=== PATIENT | female | born 1985 | race Hispanic/Latino ===

== ENCOUNTER 2017-12-05 16:23 | Emergency (ER) | payer OTHER ==
[~2017-12-05] VITALS: Ht 162.6 cm; Wt 61.2 kg
[2017-12-05] MEDS ORDERED: PAROXETINE HCL10 MG PO (16:36)
[2017-12-05] MEDS ORDERED: SERTRALINE HCL100 MG PO (16:37)
== END 2017-12-05 19:47 | disposition home or self-care (01) ==
LOC: ED 16:23
DX: F12.980 Cannabis use, unspecified with anxiety disorder (principal); Z88.5 Allergy status to narcotic agent; Z88.8 Allergy status to other drugs, medicaments and biological substances; Z79.899 Other long term (current) drug therapy
CPT/HCPCS: 80053; 84703; 85025; 99283; G0480

== ENCOUNTER 2020-01-15 12:49 | Emergency (ER) | payer OTHER ==
[~2020-01-15] VITALS: Ht 162.6 cm; Wt 63.5 kg
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
--- OUTSIDE RECORDS SUMMARY | ~2020-01-15 | XMS | Clinical Summary ---
Demographics + + + | Address | [address] | | | [place] [address] | + + + | Home Phone | | + + + | Preferred Language | Unknown | + + + | Marital Status | Single | + + + | Islam Affiliation | CAT | + + + | Race | White | + + + | Ethnic Group | Not or | + + + Author + + + | Author | NON REVENUE LOCATIONS | + + + | Organization | NON REVENUE LOCATIONS | + + + | Address | Unknown | + + + | Phone | Unavailable | + + + Support + + +---------+ + | Name | Relationship | Address | Phone | + + +---------+ + | Mayito Shahid | ECON | Unknown | | + + +---------+ + Care Team Providers + +------+ + | Care Video And Sound Recorder Name | Role | Phone | + +------+ + | Jessica Craft | PCP | | + +------+ + Source Comments BRIDGER is fully live on both EpicCare Ambulatory and EpicCare InPatient.[facility] Allergies + + + + + + | Active Allergy | Reactions | Severity | Noted | Comments | | | | | Date | | + + + + + + | Codeine | Hives, Anxiety | High | 04/30/20 | | | | | | 16 | | + + + + + + | Ketorolac | Nausea, Anxiety | Low | 04/30/20 | | | | | | 16 | | + + + + + + | Metoclopramide Hcl | Anxiety | Low | 04/30/20 | | | | | | 16 | | + + + + + + | Promethazine Hcl | Anxiety | | 09/29/19 | | | | | | 18 | | + + + + + + | Promethazine | Anxiety | Low | 04/30/20 | | | | | | 16 | | + + + + + + Medications + + + +---------+------+------+-------+ | Medication | Sig | Dispensed | Refills | Star | End | Statu | | | | | | t | Date | s | | | | | | Date | | | + + + +---------+------+------+-------+ | MULTIVITAMIN | Take by mouth once | | 0 | | | Activ | | (MULTIPLE VITAMINS | daily. 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 | + + Last Filed Vital Signs + + + + + | Vital Sign | Reading | Time Taken | Comments | + + + + + | Blood Pressure | 127/70 | 08/31/2016 2:14 PM | | | | | PST | | + + + + + | Pulse | 65 | 08/31/2016 2:14 PM | | | | | PST | | + + + + + | Temperature | 36.9 C (98.4 F) | 05/26/2016 3:17 PM | | | | | PST | | + + + + + | Respiratory Rate | 16 | 08/31/2016 2:14 PM | | | | | PST | | + + + + + | Oxygen Saturation | 97% | 08/31/2016 2:14 PM | | | | | PST | | + + + + + | Inhaled Oxygen | - | - | | | Concentration | | | | + + + + + | Weight | 61.3 kg (135 lb 1.6 | 08/13/2016 1:20 PM | | | | oz) | PST | | + + + + + | Height | 162.6 cm (5' 4") | 06/08/2016 11:46 AM | | | | | PST | | + + + + + | Body Mass Index | 23.19 | 06/08/2016 11:46 AM | | | | | PST | | + + + + + Plan of Treatment + + + + + | Health Maintenance | Due Date | Last Done | Comments | + + + + + | Influenza (Flu) | | 06/16/2017 | | | vaccination (#1) | 9 | | | + + + + + | Pneumococcal | Aged Out | | No longer eligible | | vaccination | | | based on patient's | | | | | age to complete this | | | | | topic | + + + + + Implants + +------+--------+ +--------+--------+--------+ | Implanted | Type | Area | Manufacture | Device | Shelf | Model | | | | | r | | Expira | / | | | | | | Identi | tion | Serial | | | | | | fier | Date | / Lot | + +------+--------+ +--------+--------+--------+ | TisseelImplanted: Qty: 1 on | | Left: | DEL ROSARIO | | 09/15/ | | | 05/26/2016 by Bronson Christine, | | Hand | HEALTHCARE | | 2017 | | | ,PhD at [facility] | | | | | | /[id number] | | LOC | | | | | | [id number] | | | | | | | | 3 | | | | | | | | /[id number] | | | | | | | | 035 | + +------+--------+ +--------+--------+--------+ | Graft Soft Tissue 30mm 2-3mm | | Left: | AXOGEN | | 04/17/ | | Avance Nerve Allograft | | Hand | | | 2017 | / | | Multiple Clean - | | | | | | /[id number] | | [id number]: Qty: 1 on | | | | | | | | 05/26/2016 by Bronson Christine, | | | | | | | | MDPhD at [facility] | | | | | | | | LOC | | | | | | | + +------+--------+ +--------+--------+--------+ + + | Description:AVANCE NERVE | | GRAFT | + + Results Not on filefrom Last 3 Months Insurance + +--------+ +--------+ + +--------+ | Payer | Benefi | Subscriber | Effect | Phone | Address | Type | | | t Plan | ID | nancy | | | | | | / | | Dates | | | | | | Group | | | | | | + +--------+ +--------+ + +--------+ | STAMPING PRESS OPERATOR MEDICAID | STAMPING PRESS OPERATOR | xxxxxxxx | | | | Medica | | | [place] | | 017-Pr | | | id | | | [place] | | esent | | | | + +--------+ +--------+ + +--------+ | MODA | MODA | xxxxxxxxx | 08/19/19 | [phone] | [address] | PPO | | | CONNEX | | 18-Pre | 4 | [id number] | | | | [place] | | sent | | [place], | | | | | | | | [place] [address] | | + +--------+ +--------+ + +--------+ + +--------+ +--------+ + + | Guarantor Name | Accoun | Relation to | Date | Phone | Billing Address | | | t Type | Patient | of | | | | | | | | | | + +--------+ +--------+ + + | Reyna Farmer | Person | Self [birth year] | [address] | | | al/Fam | | 1984 | [phone] | [place] [address] | | | carlene | | | 2 (Home) | | + +--------+ +--------+ + + | Reyna Farmer | Vision | Self | [birth year] | [address] | | | | | 1984 | [phone] | [place] [address] | | | | | | 2 (Home) | | + +--------+ +--------+ + +
--- OUTSIDE RECORDS SUMMARY | ~2020-01-15 | XMS | Encounter Summary ---
Demographics + + + | Address | [address] | | | [place] [address] | + + + | Home Phone | | + + + | Preferred Language | Unknown | + + + | Marital Status | Single | + + + | Sikh Affiliation | CAT | + + + | Race | White | + + + | Ethnic Group | Not or | + + + Author + + + | Author | [facility] | + + + | Organization | [facility] | + + + | Address | Unknown | + + + | Phone | Unavailable | + + + Support + + +---------+ + | Name | Relationship | Address | Phone | + + +---------+ + | Mayito Shahid | ECON | Unknown | | + + +---------+ + Care Team Providers + +------+ + | Care Product Delivery Specialist Name | Role | Phone | + +------+ + | Jessica Craft | PCP | | + +------+ + Encounter Details +--------+ + + + + | Date | Type | Department | Care Team | Description | +--------+ + + + + | 04/16/ | Hospital | Registration [id number] | Kelli Coulter MD | | | 2006 | Activity | [address] | | | | | | [address] Mailcode: [address] | | | | | | [place], [place] | | | | | | [address] | | | | | | [phone] | | | +--------+ + + + + Social History + +-------+ +--------+------+ | Tobacco Use | Types | Packs/Day | Years | Date | | | | | Used | | + +-------+ +--------+------+ | Never Assessed | | | | | + +-------+ +--------+------+ + + + | Sex Assigned at [...] + + documented as of this encounter Plan of Treatment Not on filedocumented as of this encounter Procedures + +--------+ + + + | Procedure Name | Priori | Date/Time | Associated Diagnosis | Comments | | | ty | | | | + +--------+ + + + | MRI BRAIN WWO | Urgent | 04/17/2007 | | Results for this | | CONTRAST | | 8:15 AM | | procedure are in the | | | | PDT | | results section. | + +--------+ + + + | DIFFERENTIAL | Urgent | 04/17/2007 | | Results for this | | | | 1:26 AM | | procedure are in the | | | | PDT | | results section. | + +--------+ + + + | CBC, WITH | Urgent | 04/17/2007 | | Results for this | | DIFFERENTIAL | | 1:26 AM | | procedure are in the | | | | PDT | | results section. | + +--------+ + + + | BASIC METABOLIC SET | Urgent | 04/17/2007 | | Results for this | | (NA, K, CL, TCO2, | | 1:26 AM | | procedure are in the | | BUN, CR, GLU, CA) | | PDT | | results section. | + +--------+ + + + documented in this encounter Results MRI BRAIN WWO CONTRAST (04/17/2007 8:15 AM PDT) + + + + + + | Component | Value | Ref Range | Performed | Pathologist | | | | | At | Signature | + + + + + + | MR BRAIN | Radiologist 1: ZHOU, | | | | | CONNER | RADHA AHN: MRI | | | | | CONTRAST | brain with and without | | | | | | contrast HISTORY: | | | | | | Anxiety , headache | | | | | | TECHNIQUE: MRI of the | | | | | | brain with and without | | | | | | contrast performed onthe | | | | | | 1.5 Patti magnet with | | | | | | the following | | | | | | sequences:Sagittal FLAIR | | | | | | image.Axial T1, T2,PD, | | | | | | FLAIR.Post contrast | | | | | | axial and coronal T1 | | | | | | weighted images.Please | | | | | | note that diffusion | | | | | | weighted images were not | | | | | | obtained. COMPARISON: | | | | | | No comparison FINDINGS: | | | | | | Normal brain signal | | | | | | intensity. No intra | | | | | | axial mass, masseffect | | | | | | or shift of midline | | | | | | structures. Brain volume | | | | | | andventricular size | | | | | | appropriate for | | | | | | patient's stated age | | | | | | with noevidence of | | | | | | ventricular outflow | | | | | | obstruction. No | | | | | | parenchymal orextra | | | | | | axial hemorrhage. Post | | | | | | contrast images show no | | | | | | abnormalenhancement. | | | | | | Prominent | | | | | | developmental venous | | | | | | anomaly seen in theleft | | | | | | frontotemporal region. | | | | | | Vascular flow voids | | | | | | are unremarkable.Minimal | | | | | | right maxillary mucosal | | | | | | | | | | | | thickening.IMPRESSION:1. | | | | | | Prominent developmental | | | | | | venous anomaly seen in | | | | | | the leftfrontotemporal | | | | | | region.2. Otherwise | | | | | | unremarkable MRI brain. | | | | | | | | | | + + + + + + + + | Specimen | + + | | + + + +---------+ + + | Performing | Address | City/State/Zipcode | Phone Number | | Organization | | | | + +---------+ + + | [facility] | | | | | RADIOLOGY | | | | + +---------+ + + DIFFERENTIAL (04/17/2007 1:26 AM PDT) + +-------+ + + + | Component | Value | Ref Range | Performed | Pathologist | | | | | At | Signature | + +-------+ + + + | NEUTROPHIL | 56 | 50 - 70 % | [facility] | | | % | | | DEPARTMENT | | | | | | OF | | | | | | PATHOLOGY | | + +-------+ + + + | LYMPHOCYTE | 37 | 18 - 42 % | [facility] | | | % | | | DEPARTMENT | | | | | | OF | | | | | | PATHOLOGY | | + +-------+ + + + | MONOCYTE % | 7 | 2 - 8 % | [facility] | | | | | | DEPARTMENT | | | | | | OF | | | | | | PATHOLOGY | | + +-------+ + + + | EOS % | 0 (L) | 1 - 3 % | [facility] | | | | | | DEPARTMENT | | | | | | OF | | | | | | PATHOLOGY | | + +-------+ + + + | BASO % | 0 | <3 % | [facility] | | | | | | DEPARTMENT | | | | | | OF | | | | | | PATHOLOGY | | + +-------+ + + + | NEUTROPHIL | 4.3 | 1.8 - 7.7 K/cu | [facility] | | | # | | mm | DEPARTMENT | | | | | | OF | | | | | | PATHOLOGY | | + +-------+ + + + | LYMPHOCYTE | 2.8 | 1.0 - 4.8 K/cu | [facility] | | | # | | mm | DEPARTMENT | | | | | | OF | | | | | | PATHOLOGY | | + +-------+ + + + | MONOCYTE # | 0.5 | <0.9 K/cu mm | [facility] | | | | | | DEPARTMENT | | | | | | OF | | | | | | PATHOLOGY | | + +-------+ + + + | EOS # | 0.0 | <0.6 K/cu mm | [facility] | | | | | | DEPARTMENT | | | | | | OF | | | | | | PATHOLOGY | | + +-------+ + + + | BASO # | 0.0 | <0.3 | [facility] | | | | | | DEPARTMENT | | | | | | OF | | | | | | PATHOLOGY | | + +-------+ + + + + + | Specimen | + + | | + + + + + + + | Performing | Address | City/State/Zipcode | Phone Number | | Organization | | | | + + + + + | [facility] | [address] | [place] [address] | | | PATHOLOGY | [address] | | | + + + + + | [facility] | [address] | [place] [address] | | | PATHOLOGY | [address] | | | + + + + + CBC, WITH DIFFERENTIAL (04/17/2007 1:26 AM PDT) + +-------+ + + + | Component | Value | Ref Range | Performed | Pathologist | | | | | At | Signature | + +-------+ + + + | WHITE CELL | 7.6 | 4.4 - 11.0 K/cu | [facility] | | | COUNT | | mm | DEPARTMENT | | | | | | OF | | | | | | PATHOLOGY | | + +-------+ + + + | RED CELL | 4.10 | 4.00 - 5.20 | [facility] | | | COUNT | | M/cu mm | DEPARTMENT | | | | | | OF | | | | | | PATHOLOGY | | + +-------+ + + + | HEMOGLOBIN | 13.0 | 12.0 - 16.0 | [facility] | | | | | g/dL | DEPARTMENT | | | | | | OF | | | | | | PATHOLOGY | | + +-------+ + + + | HEMATOCRIT | 37.0 | 36.0 - 46.0 % | [facility] | | | | | | DEPARTMENT | | | | | | OF | | | | | | PATHOLOGY | | + +-------+ + + + | MCV | 90.3 | 80.0 - 96.0 fL | [facility] | | | | | | DEPARTMENT | | | | | | OF | | | | | | PATHOLOGY | | + +-------+ + + + | MCHC | 35.1 | 33.4 - 35.5 | [facility] | | | | | g/dL | DEPARTMENT | | | | | | OF | | | | | | PATHOLOGY | | + +-------+ + + + | RDW | 12.2 | 11.5 - 15.0 % | [facility] | | | | | | DEPARTMENT | | | | | | OF | | | | | | PATHOLOGY | | + +-------+ + + + | PLATELET | 255 | 150 - 400 K/cu | [facility] | | | COUNT | | mm | DEPARTMENT | | | | | | OF | | | | | | PATHOLOGY | | + +-------+ + + + + + | Specimen | + + | | + + + + + + + | Performing | Address | City/State/Zipcode | Phone Number | | Organization | | | | + + + + + | [facility][1] | [address] | [place] [address] | | | PATHOLOGY | [address] | | | + + + + + | [facility][1] | [address] | [place] [address] | | | PATHOLOGY | [address] | | | + + + + + BASIC METABOLIC SET (NA,K,CL,BUN,CR,GLU,CO2,CA) (04/17/2007 1:26 AM PDT) + +---------+ + + + | Component | Value | Ref Range | Performed | Pathologist | | | | | At | Signature | + +---------+ + + + | GLUCOSE, | 107 (H) | 60 - 99 mg/dL | [facility] | | | PLASMA | | | DEPARTMENT | | | (LAB) | | | OF | | | | | | PATHOLOGY | | + +---------+ + + + | BUN, PLASMA | 14 | 6 - 20 mg/dL | [facility] | | | (LAB) | | | DEPARTMENT | | | | | | OF | | | | | | PATHOLOGY | | + +---------+ + + + | CREATININE | 0.8 | 0.6 - 1.1 mg/dL | [facility] | | | PLASMA | | | DEPARTMENT | | | (LAB) | | | OF | | | | | | PATHOLOGY | | + +---------+ + + + | SODIUM, | 139 | 136 - 145 | [facility] | | | PLASMA | | mmol/L | DEPARTMENT | | | (LAB) | | | OF | | | | | | PATHOLOGY | | + +---------+ + + + | POTASSIUM, | 3.5 | 3.5 - 5.1 | [facility] | | | PLASMA | | mmol/L | DEPARTMENT | | | (LAB) | | | OF | | | | | | PATHOLOGY | | + +---------+ + + + | CHLORIDE, | 104 | 98 - 107 mmol/L | [facility] | | | PLASMA | | | DEPARTMENT | | | (LAB) | | | OF | | | | | | PATHOLOGY | | + +---------+ + + + | TOTAL CO2, | 27 | 23 - 29 mmol/L | [facility] | | | PLASMA | | | DEPARTMENT | | | (LAB) | | | OF | | | | | | PATHOLOGY | | + +---------+ + + + | CALCIUM, | 9.6 | 8.5 - 10.5 | [facility] | | | PLASMA | | mg/dL | DEPARTMENT | | | (LAB) | | | OF | | | | | | PATHOLOGY | | + +---------+ + + + + + | Specimen | + + | | + + + + + + + | Performing | Address | City/State/Zipcode | Phone Number | | Organization | | | | + + + + + | [facility][1] | [address] | [place] [address] | | | PATHOLOGY | [address] | | | + + + + + | [facility][1] | [address] | [place] [address] | | | PATHOLOGY | [address] | | | + + + + + documented in this encounter Visit Diagnoses Not on filedocumented in this encounter"
--- OUTSIDE RECORDS SUMMARY | ~2020-01-15 | XMS | Encounter Summary ---
Demographics + + + | Address | [address] | | | [place] [address] | + + + | Home Phone | | + + + | Preferred Language | Unknown | + + + | Marital Status | Single | + + + | Orthodox Affiliation | CAT | + + + | Race | White | + + + | Ethnic Group | Not or | + + + Author + + + | Author | [facility] | + + + | Organization | [facility] | + + + | Address | Unknown | + + + | Phone | Unavailable | + + + Support + + +---------+ + | Name | Relationship | Address | Phone | + + +---------+ + | Mayito Shahid | ECON | Unknown | | + + +---------+ + Care Team Providers + +------+ + | Care Optical Systems Engineer Name | Role | Phone | + +------+ + | Unknown | PCP | Unavailable | + +------+ + Encounter Details +--------+ + + + + | Date | Type | Department | Care Team | Description | +--------+ + + + + | 04/29/ | Document-Sc | Health Information | Unknown . | | | 2015 | anned | Services [address] | | | | | [address] | | | | | | Mailcode: [id number] | | | | | | [facility] | | | | | | [place], [place] | | | | | | [address] | | | | | | [phone] | | | +--------+ + + + [...] filedocumented as of this encounter Visit Diagnoses Not on filedocumented in this encounter"
--- OUTSIDE RECORDS SUMMARY | ~2020-01-15 | XMS | Encounter Summary ---
Demographics + + + | Address | [address] | | | [place] [address] | + + + | Home Phone | | + + + | Preferred Language | Unknown | + + + | Marital Status | Single | + + + | Jehovah'S Witness Affiliation | CAT | + + + | Race | White | + + + | Ethnic Group | Not or | + + + Author + + + | Author | [facility] | + + + | Organization | [facility] | + + + | Address | Unknown | + + + | Phone | Unavailable | + + + Support + + +---------+ + | Name | Relationship | Address | Phone | + + +---------+ + | Mayito Shahid | ECON | Unknown | | + + +---------+ + Care Team Providers + +------+ + | Care Dental Mechanic Name | Role | Phone | + +------+ + | No Pcp Per Patient | PCP | Unavailable | + +------+ + Encounter Details +--------+ + + + + | Date | Type | Department | Care Team | Description | +--------+ + + + + | 08/22/ | Documentati | Plastic and | Bronson Christine, | | | 2017 | on | Reconstructive | ,PhD [address] | | | | | Surgery at [facility] [address] [place], [place] | | | | | [address] | [address] | | | | | Mailcode: [facility] | [phone] | | | | | [facility] | | | | | | and Healing, | | | | | | Building | | | | | | Floor [place], [place] | | | | | | [address] | | | | | | [phone] | | | +--------+ + + + [...]
--- OUTSIDE RECORDS SUMMARY | ~2020-01-15 | XMS | Encounter Summary ---
Demographics + + + | Address | [address] | | | [place] [address] | + + + | Home Phone | | + + + | Preferred Language | Unknown | + + + | Marital Status | Single | + + + | Restorationism Affiliation | [id number] | + + + | Race | Unknown | + + + | Ethnic Group | Unknown | + + + Author + + + | Author | [facility] | | | and [place] | + + + | Organization | [facility] | | | and [place] | + + + | Address | Unknown | + + + | Phone | Unavailable | + + + Support + + +---------+ + | Name | Relationship | Address | Phone | + + +---------+ + | Lety Farmer | ECON | Unknown | | + + +---------+ + Care Team Providers + +------+ + | Care Pulpwood Buyer Name | Role | Phone | + +------+ + | Elmer Rangel MD | PCP | | + +------+ + Reason for Visit +---------+--------+ + | Reason | Onset | Comments | | | Date | | +---------+--------+ + | Results | 12/18/ | | | | 2020 | | +---------+--------+ + Encounter Details +--------+ + + + + | Date | Type | Department | Care Team | Description | +--------+ + + + + | 12/18/ | Telephone | [facility] | [facility], | Results | | 2020 | | GASTROENTEROLOGY | Nancy KAELYN [address] | | | | | [address] | [address] | | | | | [address] [place], [place] | [place], [place] | | | | | [address] | [address] | | | | | [phone] | | | +--------+ + + + [...] | | | + +---+---+---+ + + +---------+ + | Alcohol Use | Drinks/Week | oz/Week | Comments | + + +---------+ + | Yes | | | | + + +---------+ + + + + | Sex Assigned at | Date Recorded | | | | + + + | Female | 12/05/2019 3:51 PM PDT | + + + documented as of this encounter Miscellaneous Notes Telephone Encounter - Mary Whitfield CMA - 12/19/2019 9:57 AM PDTNotified patient cayla t labs are stable. The MRI that Belen ordered has been approved by insurance and is ready to schedule here at [facility] imaging. documented in this encounter Plan of Treatment Not on filedocumented as of this encounter Visit Diagnoses Not on filedocumented in this encounter"
--- OUTSIDE RECORDS SUMMARY | ~2020-01-15 | XMS | Encounter Summary ---
Demographics + + + | Address | [address] | | | [place] [address] | + + + | Home Phone | | + + + | Preferred Language | Unknown | + + + | Marital Status | Single | + + + | Rastafari Affiliation | CAT | + + + | Race | White | + + + | Ethnic Group | Not or | + + + Author + + + | Author | [facility] | + + + | Organization | [facility] | + + + | Address | Unknown | + + + | Phone | Unavailable | + + + Support + + +---------+ + | Name | Relationship | Address | Phone | + + +---------+ + | Mayito Shahid | ECON | Unknown | | + + +---------+ + Care Team Providers + +------+ + | Care Shirt Trimmer Name | Role | Phone | + +------+ + | No Pcp Per Patient | PCP | Unavailable | + +------+ + Reason for Visit + + + | Reason | Comments | + + + | Prescription renewal | | + + + Encounter Details +--------+ + + + + | Date | Type | Department | Care Team | Description | +--------+ + + + + | 09/29/ | Telephone | Plastic and | Bronson Christine, | Prescription renewal | | 2017 | | Reconstructive | ,PhD [address] | | | | | Surgery at [facility] [address] | [place], [place] | | | | | [address] | [address] | | | | | Mailcode: [place] | [phone] | | | | | [facility] | | | | | | and [place], | | | | | | Building | | | | | | Floor [facility] [place] | | | | | | [address] | | | | | | [phone] | | | +--------+ + + + [...]
--- OUTSIDE RECORDS SUMMARY | ~2020-01-15 | XMS | Encounter Summary ---
Demographics + + + | Address | [address] | | | [place] [address] | + + + | Home Phone | | + + + | Preferred Language | Unknown | + + + | Marital Status | Single | + + + | Amish Affiliation | CAT | + + + | Race | White | + + + | Ethnic Group | Not or | + + + Author + + + | Author | [facility] | + + + | Organization | [facility] | + + + | Address | Unknown | + + + | Phone | Unavailable | + + + Support + + +---------+ + | Name | Relationship | Address | Phone | + + +---------+ + | Mayito Shahid | ECON | Unknown | | + + +---------+ + Care Team Providers + +------+ + | Care Counter Hop Name | Role | Phone | + [...] +--------+--------+ + + + + Encounter Details +--------+ + + + + | Date | Type | Department | Care Team | Description | +--------+ + + + + | 05/26/ | Anesthesia | 4N INTRA OP 3161 | Darcy Estrada | | | 2016 | Event | [facility]chuga | MD [address] | | | | | [place] | [facility] | | | | | Ambulatory Surgery | [place], [place] | | | | | Admitting Desk | [address] | | | | | Located on the [facility] | [phone] | | | | | floor, Room [facility] | | | | | | [place], [place] | | | | | | [address] | | | +--------+ + + + + Anesthesia Record + + + + + | Procedure Name | Responsible | Anesthesia Start | Anesthesia Stop Time | | | Anesthesiologist | Time | | + + + + + | LEFT HAND ULNAR | Darcy Licha Estrada, | 05/26/16 0924 | 05/26/16 1238 | | NERVE MOTOR BRANCH | MD | | | | RECONSTRUCTION WITH | | | | | ALLOGRAFT VS. | | | | | POSSIBLE SURAL NERVE | | | | | AUTOGRAFT (Left | | | | | Hand) | | | | + + + + + +----+---+ + + | Da | T | Event | Comment | | te | i | | | | | m | | | | | e | | | +----+---+ + + | 11 | 0 | Eq Check | Anesthesia machine checked Equipment verified | | /0 | 9 | | | | 8/ | 2 | | | | 20 | 3 | | | | 16 | | | | +----+---+ + + | | 0 | Pt. Check | Prior to anesthesia start, pt. Identified, examined, chart | | | 9 | | reviewed, ALLY held, anesthetic plan made or approved by | | | 2 | | attending anesthesiologist. NPO status confirmed as appropriate | | | 3 | | for procedure Preoperative evaluation: unchanged | +----+---+ + + | | 0 | An Start | | | | 9 | | | | | 2 | | | | | 4 | | | +----+---+ + + | | 0 | An Start | | | | 9 | Data | | | | 2 | | | | | 6 | | | +----+---+ + + | | 0 | Vitals | Monitors applied Vital signs checked Patient ready for anesthesia | | | 9 | Checked | | | | 2 | | | | | 7 | | | +----+---+ + + | | 0 | Std. Airway | | | | 9 | Mgt. | | | | 3 | | | | | 2 | | | +----+---+ + + | | 0 | Abx | | | | 9 | Administere | | | | 3 | d | | | | 7 | | | +----+---+ + + | | 0 | Ready | | | | 9 | | | | | 3 | | | | | 7 | | | +----+---+ + + | | 0 | An Tourn | | | | 9 | Inflated | | | | 4 | | | | | 6 | | | +----+---+ + + | | 0 | Incision | | | | 9 | | | | | 4 | | | | | 7 | | | +----+---+ + + | | 1 | An Tourn | | | | 0 | Deflated | | | | 5 | | | | | 3 | | | +----+---+ + + | | 1 | An Tourn | | | | 1 | Inflated | | | | 0 | | | | | 4 | | | +----+---+ + + | | 1 | An Tourn | | | | 2 | Deflated | | | | 0 | | | | | 5 | | | +----+---+ + + | | 1 | Surgery end | | | | 2 | | | | | 2 | | | | | 0 | | | +----+---+ + + | | 1 | LMA Removed | | | | 2 | | | | | 2 | | | | | 9 | | | +----+---+ + + | | 1 | an stop | | | | 2 | data | | | | 2 | | | | | 9 | | | +----+---+ + + | | 1 | Anesthesia | | | | 2 | End | | | | 3 | | | | | 8 | | | +----+---+ + + +------+ | Meds | +------+ + + + | Name | Total | + + + | propofol | 200 mg | + + + | lidocaine 2% | 100 mg | + + + | midazolam | 2 mg | + + + | fentaNYL | 400 mcg | + + + | dexamethasone | 10 mg | + + + | ondansetron | 4 mg | + + + | propofol INF | 391,680 mcg | + + + | lactated ringers IV | 1,500 mL | + + + + + | Name | + + | Insp Allan | + + | Et Allan | + + | Insp Sevo | + + | Et Sevo | + + | O2 Flow Rate (Total Liters) | + + | Air Flow rate (L/min) | + + + + | No blood administrations on file. | + + +--------+ + + + | Type | Details | Placement | Removal | +--------+ + + + | Incisi | 05/26/16; Left; palm; 05/26/16; | 05/26/16 0000 by | 05/26/161612 by | | on | 1613 | Jenny Barajas RN | Gareth Cleary RN | +--------+ + + + | Periph | 05/26/16; 0855; Right; | 05/26/16 0855 by | 05/26/161611 by | | eral | Antecubital; 20 g; None; | Amalia Qiu RN | Gareth Cleary RN | | IV | Positive; 05/26/16; 161; | | | | | Discharge | | | +--------+ + + + documented in this encounter Social History + +-------+ +--------+------+ | Tobacco [...] in this encounter Administered Medications + +--------+ +-------+------+------+ | Medication Order | MAR | Action | Dose | Rate | Site | | | Action | Date | | | | + +--------+ +-------+------+------+ | dexamethasone (DECADRON) | Given | 05/26/20 | 10 mg | | | | injection intravenous, | | 16 9:40 | | | | | INTRAPROCEDURE PRN, Starting Tue | | AM PST | | | | | 05/26/16 at 0940, Until Tue | | | | | | | 05/26/16 at 1229 | | | | | | + +--------+ +-------+------+------+ +---+---+ | | | +---+---+ + +-------+ +--------+---+---+ | fentaNYL citrate (PF) | Given | 05/26/20 | 50 mcg | | | | (SUBLIMAZE) injection | | 16 12:37 | | | | | intravenous, INTRAPROCEDURE PRN, | | PM PST | | | | | Starting 05/26/16 at 0932, | | | | | | | Until 05/26/16 at 1229 | | | | | | + +-------+ +--------+---+---+ +-------+ +--------+---+---+ | Given | 05/26/20 | 50 mcg | | | | | 16 12:15 | | | | | | PM PST | | | | +-------+ +--------+---+---+ | Given | 05/26/20 | 50 mcg | | | | | 16 11:45 | | | | | | AM PST | | | | +-------+ +--------+---+---+ +---+---+ | | | +---+---+ + +---------+ + + +---+ | lactated ringers IV 10 mL/hr, | New Bag | 05/26/20 | 10 mL/hr | 10 mL/hr | | | intravenous, PROCEDURE | | 16 1:00 | | | | | CONTINUOUS, Starting 05/26/16 | | PM PST | | | | | at 0830, Until e 05/26/16 at | | | | | [...] +---+---+---+ +---+---+ | | | +---+---+ + +-------+ +--------+---+---+ | lidocaine PF (XYLOCAINE MPF) 20 | Given | 05/26/20 | 100 mg | | | | mg/mL (2 %) injection | | 16 9:31 | | | | | INTRAPROCEDURE PRN, Starting Tue | | AM PST | | | | | 05/26/16 at 0931, Until Tue | | | | | | | 05/26/16 at 1229 | | | | | | + +-------+ +--------+---+---+ +---+---+ | | | +---+---+ + +-------+ +------+---+---+ | midazolam (VERSED) injection | Given | 05/26/20 | 2 mg | | | | intravenous, INTRAPROCEDURE PRN, | | 16 9:24 | | | | | Starting 05/26/16 at 0924, | | AM PST | | | | | Until e 05/26/16 at 1229 | | | | | | + +-------+ +------+---+---+ +---+---+ | | | +---+---+ + +-------+ +------+---+---+ | ondansetron (ZOFRAN) injection | Given | 05/26/20 | 4 mg | | | | intravenous, INTRAPROCEDURE PRN, | | 16 12:00 | | | | | Starting Wed05/26/16 at 1200, | | PM PST | | | | | Until Wed05/26/16 at 1229 | | | | | | + +-------+ +------+---+---+ +---+---+ | | | +---+---+ + +---------+ + +--------+---+ | propofol (DIPRIVAN) injection | New Bag | 05/26/20 | 50 | 17.28 | | | INTRAPROCEDURE CONTINUOUS PRN, | | 16 9:44 | mcg/kg/m | mL/hr | | | Starting 05/26/16 at 0944, | | AM PST | in | | | | Until 05/26/16 at 1229 | | | | | | + +---------+ + +--------+---+ +---+---+ | | | +---+---+ + +-------+ +--------+---+---+ | propofol intravenous, | Given | 05/26/20 | 200 mg | | | | INTRAPROCEDURE PRN, Starting Tue | | 16 9:31 | | | | | 05/26/16 at 0931, Until Tue | | AM PST | | | | | 05/26/16 at 1229 | | | | | | + +-------+ +--------+---+---+ +---+---+ | | | +---+---+ documented in this encounter"
--- OUTSIDE RECORDS SUMMARY | ~2020-01-15 | XMS | Encounter Summary ---
Demographics + + + | Address | [address] | | | [place] [address] | + + + | Home Phone | | + + + | Preferred Language | Unknown | + + + | Marital Status | Single | + + + | Mandaen Affiliation | [id number] | + + + | Race | Unknown | + + + | Ethnic Group | Unknown | + + + Author + + + | Author | [facility] | | | and [place] | + + + | Organization | [facility] | | | and [...] Team Providers + +------+ + | Care Corporate Controller Name | Role | Phone | + +------+ + PCP | Unavailable | + +------+ + Encounter Details +--------+ + + + + | Date | Type | Department | Care Team | Description | +--------+ + + + + | 04/26/ | Emergency | [facility] | Willy Barone | Hydronephrosis with | | 2014 | | [facility] | DO [address] | urinary obstruction | | | | EM[facility]Y CENTER | [address] | due to ureteral | | | | [address] | [place] | calculus | | | | [place], [place] | [address] | | | | | [address] | [phone] | | | | | [phone] | | | +--------+ + + + [...] | + + + | Female | | + + + documented as of this encounter ED Notes Conversion Transaction, Provider Unknown - 04/26/2015 10:02 AM PDTFormatting of this note m ight be different from the original. ED Notes by Lou Lomas RN at 04/26/15 1002 Author: Lou Lomas RN Service: (none) Author Type: Registered Nurse Filed: 04/26/15 1006 Date of Service: 04/26/15 1002 Status: Signed Retread Operator: Lou Lomas RN (Registered Nurse) PT is and has previously had an ultrasound for left flank pain which shows hydrone phrosis but "no stone , but it wouldn't" PT states she has gone "6 days in [place] without any real relief. No fever. Previous kidney stones "passed within one day" . PT has had no a ntibiotics during the course. PT was sent here from [place] for higher level of care treat ment for renal calculi. Pt has been in pain and vomiting. Lou Lomas RN 04/26/15 1006 Willy Del Toro DO - 04/26/2015 9:51 AM PDT ED Provider Notes by Willy Barone DO at 04/26/1551 Author: Willy Barone DO Service: (none) Author Type: Physician Filed: 04/27/15 1206 Date of Service: 04/26/15950 Status: Signed Retread Operator: Willy Barone DO (Physician) [facility] Department of Emergency Medicine 12:04 PM History of Present Illness Patient Identification Reyna Shahid is a 29 y.o. female. Patient information was obtained from patient. History/Exam limitations: none. Patient presented to the Emergency Department by: Car Chief Complaint Chief Complaint Patient presents with Flank Pain left 29-year-old female at 24 weeks gestation with a history of kidney stones was transferred to emergency department for further evaluation of left flank pain. The patient's been having o ngoing left flank pain past week and has been hospitalized for intractable pain in [facility] and was transferred secondary to no urology coverage. No past medical history on file. No past surgical history on file. Prior to Admission medications Not on File Allergies Allergen Reactions Codeine Hives and Anxiety Phenergan [Promethazine] Anxiety Reglan [Metoclopramide] Agitation Toradol [Ketorolac] Nausea Only and Anxiety History Social History Marital Status: Single Spouse Name: N/A Number of Children: N/A Years of Education: N/A Occupational History Not on file. Social History Main Topics Smoking status: Not on file Smokeless tobacco: Not on file Alcohol Use: Not on file Drug Use: Not on file Sexual Activity: Not on file Other Topics Concern Not on file Social History Narrative No narrative on file No family history on file. Review of Systems Review of Systems Constitutional: Negative for fever and chills. Cardiovascular: Negative for chest pain. Gastrointestinal: Flank pain Genitourinary: Positive for flank pain. Negative for urgency. Skin: Negative for rash. Neurological: Positive for weakness. All other systems reviewed and are negative. Physical Exam BP 115/72 mmHg | Pulse 94 | Temp(Src) 98.1 F (36.7 C) (Temporal) | Resp 16 | Wt 71.215 kg (157 lb) | SpO2 99% Pulse Oximetry interpretation: Normal Physical Exam Constitutional: She is oriented to person, place, and time. She appears well-developed and well-nourished. The patient appears uncomfortable HENT: Head: Normocephalic and atraumatic. Right Ear: External ear normal. Left Ear: External ear normal. Eyes: EOM are normal. Pupils are equal, round, and reactive to light. Right eye exhibits no discharge. Left eye exhibits no discharge. Neck: Normal range of motion. Cardiovascular: Normal rate. Pulmonary/Chest: Effort normal and breath sounds normal. Abdominal: Soft. There is no tenderness. There is CVA tenderness. abdomen with left flank pain Musculoskeletal: Normal range of motion. Neurological: She is alert and oriented to person, place, and time. Skin: Skin is warm. She is not diaphoretic. Psychiatric: She has a normal mood and affect. Medical Decision Making and Emergency Department Course ED Department Course On arrival to emergency department if he records from [facility] were reviewed. Dr. Powell from urology was consult after initial evaluation and review of prior records. Dr Madrigal recommended repeating an ultrasound, labs and hydration and monitoring in the emergen cy department At 1630 I again discussed case with and findings from today's evaluation. He curre ntly does not think that the patient needs any acute surgical procedure and would benefit fr om a dose of IV and antibiotics and oral antibiotics and follow-up in clinic. He will follow -up the patient next week for recheck and advised to return to emergency department for any worsening I discussed this with the patient who feels that she is safe for discharge and would prefer to go home with pain medicine and antibiotics. Patient understands that she can follow up n ext week for further evaluation and the patient understands that she is to return immediatel y for any worsening of her condition Records Reviewed Old medical records. Laboratory Evaluation Results Procedure Component Value Ref Range Date/Time Urine culture [[id number]] Collected: 04/26/15 1015 Order Status: Sent Specimen Information: Urine / Urine, Clean Catch Updated: 04/26/15 1514 Lipase [[id number]] Collected: 04/26/15 1100 Order Status: Completed Specimen Information: Blood Updated: 04/26/15 1120 LIPASE 73 73 - 393 U/L Urine microscopic [[id number]] (Abnormal) Collected: 04/26/15 1015 Order Status: Completed Specimen Information: Urine / Urine, Clean Catch Updated: 04/02 1113 WBC 0-2 0 - 5 /hpf RBC 0-2 0 - 5 /hpf EPITHELIAL 50-100 /lpf BACTERIA 2+ (A) NONE SEEN CBC with differential [[id number]] (Abnormal) Collected: 04/26/15 1100 Order Status: Completed Specimen Information: Blood Updated: 04/26/15 1111 WBC 6.86 3.80 - 11.00 K/uL RBC 3.01 (L) 3.70 - 5.10 M/uL HGB 9.2 (L) 11.3 - 15.5 g/dL HCT 26.9 (L) 34.0 - 46.0 % MCV 89.5 80.0 - 100.0 fl MCH 30.5 27.0 - 34.0 pg MCHC 34.1 32.0 - 35.5 g/dL RDW SD 40.7 37 - 53 fl PLT 163 150 - 400 K/uL MPV 7.0 fl DIFF TYPE AUTOMATED NEUTROPHILS 79.96 % LYMPHOCYTES 13.32 % MONOCYTES 6.36 % EOSINOPHILS 0.23 % BASOPHILS 0.13 % NEUTROPHILS ABS 5.49 1.90 - 7.40 K/uL LYMPHOCYTES ABS 0.91 (L) 1.00 - 3.90 K/uL MONOCYTES ABS 0.44 0.00 - 0.80 K/uL EOSINOPHILS ABS 0.02 0.00 - 0.50 K/uL BASOPHILS ABS 0.01 0.00 - 0.10 K/uL POC clinitek 10 [[id number]] (Abnormal) Collected: 04/26/15 1011 Order Status: Completed Updated: 04/26/15 1017 Color, UA YELLOW Clarity, UA CLEAR Glucose, UA NEGATIVE NEGATIVE mg/dL Bilirubin, UA NEGATIVE NEGATIVE Ketones, UA >159 (A) NEGATIVE mg/dL Spec Grav, UA 1.015 1.001 - 1.035 Blood, UA NEGATIVE NEGATIVE pH, UA 7.0 4.6 - 8.0 Protein, UA NEGATIVE NEGATIVE mg/dL Urobilinogen, UA 1.0 <1.1 mg/dL Nitrite, UA POSITIVE (A) NEGATIVE WBC, UA NEGATIVE NEGATIVE I personally reviewed the lab results and they have been posted to the chart. Pertinent po sitive and negative findings have been addressed appropriately. Radiology and EKG Evaluation Imaging Results Ultrasound retroperitoneal complete (Final result) Result time: 04/26/15 14:56:10 Final result by Rad Results In Jake (04/26/15 14:56:10) Impression: 1. Bilateral but asymmetric mild hydronephrosis and pelviectasis, greater on the left. Ech ogenic foci, one of which measures about 5 mm in the left renal pelvis. First consideration here is small stone, but there are differential considerations. 2. Cardiomegaly demarcation seems very accentuated. Would correlate with symptoms and urina lysis. Can be associated with edema, occasionally capillary necrosis can be associated with increa sed corticomedullary demarcation Narrative: HISTORY: 29 -year-old female with possible stone, . Pain TECHNIQUE: Ultrasound of bilateral kidneys and urinary bladder. Prior study for comparison, none. FINDINGS: Right kidney measures 10.9 x 5.9 x 4.9 cm. The corticomedullary demarcation is preserved. There is what is believed to be mild pelviec tasis, image 2. The corticomedullary demarcation is pronounced, but there is no stone or keyanna id renal lesion in evidence. Left kidney measures 12.4 x 5.9 x 4.8 cm. Also, the corticomedullary demarcation is preserved. Cortex is diffusely low density relati ve to the medullary portion, accentuating the corticomedullary demarcation. There is mild hy dronephrosis. Echogenic foci in the collecting systems, for example on image 44. A 5 Alas stone cannot be excluded there. No evident aggressive lesion Vascular flow is normal to screening technique. Pre-voiding bladder volume is 281 cc. Post voiding residual 0. The right jet is duplicated, image 50. Suggesting dilatation of the ureter at least partial. [Not seen-this may be techn ical ED Diagnosis Final diagnosis Hydronephrosis with urinary obstruction due to ureteral calculus Disposition: ED Disposition Discharge Condition at discharge: Good Follow-up Information Follow up With Details Comments Contact Info Srinivas Powell MD Call in 3 days [phone] [facility] [address] Discharge Medications: Discharge Medication List as of 04/26/2015 5:54 PM START taking these medications Details cephALEXin (KEFLEX) 500 MG capsule Take 1 capsule by mouth 4 (four) times daily., Starting 04/26/2015, Until Wed05/03/15, Print oxyCODONE-acetaminophen (PERCOCET) 5-325 MG per tablet Take 1-2 tablets by mouth every 6 (s ix) hours as needed for Pain., Starting 04/26/2015, Until Wed05/06/15, Print Dr. Willy Barone, D.O. Dictation software, [employer], used which may contain error for similar sounding words even af ter review. Personal communication requested for any clarification. Willy Barone DO 04/27/15 1206 documente d in this encounter Plan of Treatment Not on filedocumented as of this encounter Procedures + +--------+ + + + | Procedure Name | Priori | Date/Time | Associated Diagnosis | Comments | | | ty | | | | + +--------+ + + + | US RETROPERITONEAL | Routin | 04/26/2015 | | Results for this | | COMPLETE | e | 2:45 PM | | procedure are in the | | | | PDT | | results section. | + +--------+ + + + | EXTERNAL LAB: CBC | Routin | 04/26/2015 | | Results for this | | | e | 11:00 AM | | procedure are in the | | | | PDT | | results section. | + +--------+ + + + | LIPASE | Routin | 04/26/2015 | | Results for this | | | e | 11:00 AM | | procedure are in the | | | | PDT | | results section. | + +--------+ + + + | URINALYSIS, | Routin | 04/26/2015 | | Results for this | | MICROSCOPIC ONLY | e | 10:15 AM | | procedure are in the | | | | PDT | | results section. | + +--------+ + + + | CULTURE, URINE | STAT | 04/26/2015 | | Results for this | | | | 10:15 AM | | procedure are in the | | | | PDT | | results section. | + +--------+ + + + documented in this encounter Results US Retroperitoneal Complete (04/26/2015 2:45 PM PDT) + + | Specimen | + + | | + + + + + | Impressions | Performed At | + + + | 1. Bilateral but asymmetric mild hydronephrosis and | | | pelviectasis, greater on the left. Echogenic foci, one of which | | | measures about 5 mm in the left renal pelvis. First consideration here | | | is small stone, but there are differential considerations. 2. | | | Cardiomegaly demarcation seems very accentuated. Would correlate with | | | symptoms and urinalysis. Can be associated with edema, | | | occasionally capillary necrosis can be associated with increased | | | corticomedullary demarcation | | + + + + + + | Narrative | Performed At | + + + | HISTORY: 29 -year-old female with possible stone, . Pain | | | TECHNIQUE: Ultrasound of bilateral kidneys and urinary bladder. | | | Prior study for comparison, none. FINDINGS: Right kidney | | | measures 10.9 x 5.9 x 4.9 cm. The corticomedullary demarcation is | | | preserved. There is what is believed to be mild pelviectasis, image 2. | | | The corticomedullary demarcation is pronounced, but there is no stone | | | or solid renal lesion in evidence. Left kidney measures 12.4 x | | | 5.9 x 4.8 cm. Also, the corticomedullary demarcation is preserved. | | | Cortex is diffusely low density relative to the medullary portion, | | | accentuating the corticomedullary demarcation. There is mild | | | hydronephrosis. Echogenic foci in the collecting systems, for | | | example on image 44. A 5 Alas stone cannot be excluded there. No | | | evident aggressive lesion Vascular flow is normal to screening | | | technique. Pre-voiding bladder volume is 281 cc. Post voiding | | | residual 0. The right jet is duplicated, image 50. Suggesting | | | dilatation of the ureter at least partial. [Not seen-this may be | | | technical | | + + + + + | Procedure Note | + + | Jake, Rad Conversion - 03/02/2019 11:02 PM PDT HISTORY: 29 -year-old female with | | possible stone, . Pain TECHNIQUE: Ultrasound of bilateral kidneys and urinary | | bladder. Prior study for comparison, none. FINDINGS: Right kidney measures 10.9 x 5.9 x | | 4.9 cm. The corticomedullary demarcation is preserved. There is what is believed to be | | mild pelviectasis, image 2. The corticomedullary demarcation is pronounced, but there is | | no stone or solid renal lesion in evidence. Left kidney measures 12.4 x 5.9 x 4.8 cm. | | Also, the corticomedullary demarcation is preserved. Cortex is diffusely low density | | relative to the medullary portion, accentuating the corticomedullary demarcation. There | | is mild hydronephrosis. Echogenic foci in the collecting systems, for example on image | | 44. A 5 Alas stone cannot be excluded there. No evident aggressive lesion Vascular | | flow is normal to screening technique. Pre-voiding bladder volume is 281 cc. Post | | voiding residual 0. The right jet is duplicated, image 50. Suggesting dilatation of the | | ureter at least partial. [Not seen-this may be technical IMPRESSION: 1. Bilateral but | | asymmetric mild hydronephrosis and pelviectasis, greater on the left. Echogenic foci, | | one of which measures about 5 mm in the left renal pelvis. First consideration here is | | small stone, but there are differential considerations. 2. Cardiomegaly demarcation | | seems very accentuated. Would correlate with symptoms and urinalysis. Can be associated | | with edema, occasionally capillary necrosis can be associated with increased | | corticomedullary demarcation | | 2:56 PM | |Pre-voiding bladder volume is 281 cc. Post voiding residual 0. The right jet is duplicated, image 50. Suggesting dilatation of the ureter at least partial. [Not seen-this may be techn ical | | | |IMPRESSION: | | | |1. Bilateral but asymmetric mild hydronephrosis and pelviectasis, greater on the left. Ech ogenic foci, one of which measures about 5 mm in the left renal pelvis. First consideration here is small stone, but there are differential considerations. | | | |2. Cardiomegaly demarcation seems very accentuated. Would correlate with symptoms and urina lysis. | | | |Can be associated with edema, occasionally capillary necrosis can be associated with increa sed corticomedullary demarcation | | | | | + + External Lab: CBC (04/26/2015 11:00 AM PDT) + + + + + + | Component | Value | Ref Range | Performed | Pathologist | | | | | At | Signature | + + + + + + | WBC | 6.86Comment: Testing | 3.80 - 11.00 | EXTERNAL | | | | performed at [facility];[address] | K/uL | LAB | | | | [address];[place], [place] | | | | | | [address] | | | | + + + + + + | Red Blood | 3.01 (L)Comment: Testing | 3.70 - 5.10 | EXTERNAL | | | Cells | performed at [facility];[address] | M/uL | LAB | | | Counted | [address];[place] | | | | | | [address] | | | | + + + + + + | Hemoglobin | 9.2 (L)Comment: Testing | 11.3 - 15.5 | EXTERNAL | | | | performed at [facility];888 | g/dL | LAB | | | | [address];[place] | | | | | | [address] | | | | + + + + + + | Hematocrit, | 26.9 (L)Comment: Testing | 34.0 - 46.0 % | EXTERNAL | | | POC | performed at [facility];[address] | | LAB | | | | [address];[place] | | | | | | [address] | | | | + + + + + + | MCV | 89.5Comment: Testing | 80.0 - 100.0 fl | EXTERNAL | | | | performed at [facility];[address] | | LAB | | | | [address];[place] | | | | | | [address] | | | | + + + + + + | MCH | 30.5Comment: Testing | 27.0 - 34.0 pg | EXTERNAL | | | | performed at [facility];[address] | | LAB | | | | [address];[place] | | | | | | [address] | | | | + + + + + + | MCHC | 34.1Comment: Testing | 32.0 - 35.5 | EXTERNAL | | | | performed at [facility];888 | g/dL | LAB | | | | [address];[place] | | | | | | [address] | | | | + + + + + + | RDW-CV | 40.7Comment: Testing | 37 - 53 fl | EXTERNAL | | | | performed at [facility];[address] | | LAB | | | | [address];[place] | | | | | | [address] | | | | + + + + + + | Platelet | 163Comment: Testing | 150 - 400 K/uL | EXTERNAL | | | Count | performed at [facility];[address] | | LAB | | | Plasma | [address];[place] | | | | | | [address] | | | | + + + + + + | MPV | 7.0Comment: Testing | fl | EXTERNAL | | | | performed at [facility];[address] | | LAB | | | | [address];[place] | | | | | | [address] | | | | + + + + + + | Differentia | AUTOMATEDComment: | | EXTERNAL | | | l Type | Testing performed at | | LAB | | | | [facility];[address];[place] [address] | | | | + + + + + + | % Segmented | 79.96Comment: Testing | % | EXTERNAL | | | | performed at [facility];[address] | | LAB | | | Neutrophils | [address];[place] | | | | | | [address] | | | | + + + + + + | % | 13.32Comment: Testing | % | EXTERNAL | | | Lymphocytes | performed at [facility];[address] | | LAB | | | | [address];[place] | | | | | | [address] | | | | + + + + + + | % Monocytes | 6.36Comment: Testing | % | EXTERNAL | | | | performed at [facility];[address] | | LAB | | | | [address];[place] | | | | | | [address] | | | | + + + + + + | % | 0.23Comment: Testing | % | EXTERNAL | | | Eosinophils | performed at [facility];[address] | | LAB | | | | [address];[place] | | | | | | [address] | | | | + + + + + + | % Basophils | 0.13Comment: Testing | % | EXTERNAL | | | | performed at [facility];[address] | | LAB | | | | [address];[place] | | | | | | [address] | | | | + + + + + + | Absolute | 5.49Comment: Testing | 1.90 - 7.40 | EXTERNAL | | | Segmented | performed at [facility];888 | K/uL | LAB | | | Neutrophils | [address];[place] | | | | | | [address] | | | | + + + + + + | Absolute | 0.91 (L)Comment: Testing | 1.00 - 3.90 | EXTERNAL | | | Lymphocytes | performed at [facility];[address] | K/uL | LAB | | | | [address];[place] | | | | | | [address] | | | | + + + + + + | Absolute | 0.44Comment: Testing | 0.00 - 0.80 | EXTERNAL | | | Monocytes | performed at [facility];[address] | K/uL | LAB | | | | [address];[place] | | | | | | [address] | | | | + + + + + + | Absolute | 0.02Comment: Testing | 0.00 - 0.50 | EXTERNAL | | | Eosinophils | performed at [facility];[address] | K/uL | LAB | | | | [address];[place] | | | | | | [address] | | | | + + + + + + | Absolute | 0.01Comment: Testing | 0.00 - 0.10 | EXTERNAL | | | Basophils | performed at [facility];[address] | K/uL | LAB | | | | [address];[place] | | | | | | [address] | | | | + + + + + + + + | Specimen | + + | Blood specimen | | (specimen) | + + + +---------+ + + | Performing | Address | City/State/Zipcode | Phone Number | | Organization | | | | + +---------+ + + | EXTERNAL LAB | | | | + +---------+ + + Lipase (04/26/2015 11:00 AM PDT) + + + + + + | Component | Value | Ref Range | Performed | Pathologist | | | | | At | Signature | + + + + + + | Lipase | 73Comment: Testing | 73 - 393 U/L | EXTERNAL | | | | performed at [facility];[address] | | LAB | | | | [address];[place], [place] | | | | | | [address] | | | | + + + + + + + + | Specimen | + + | Blood specimen | | (specimen) | + + + +---------+ + + | Performing | Address | City/State/Zipcode | Phone Number | | Organization | | | | + +---------+ + + | EXTERNAL LAB | | | | + +---------+ + + Culture, Urine (04/26/2015 10:15 AM PDT) + + | Specimen | + + | Urine specimen | | (specimen) | + + + + + | Narrative | Performed At | + + + | Specimen Description URINE,CLEAN CATCH CULTURE | EXTERNAL LAB | | NO GROWTH | | | Testing performed at [facility], [address] | | | [place] [address] | | + + + + +---------+ + + | Performing | Address | City/State/Zipcode | Phone Number | | Organization | | | | + +---------+ + + | EXTERNAL LAB | | | | + +---------+ + + Urinalysis, Microscopic Only (04/26/2015 10:15 AM PDT) + + + + + + | Component | Value | Ref Range | Performed | Pathologist | | | | | At | Signature | + + + + + + | WBC, UA | 0-2Comment: Testing | 0 - 5 /hpf | EXTERNAL | | | | performed at [facility];[address] | | LAB | | | | [address];[place] | | | | | | [address] | | | | + + + + + + | RBC, UA | 0-2Comment: Testing | 0 - 5 /hpf | EXTERNAL | | | | performed at [facility];[address] | | LAB | | | | [address];[place] | | | | | | [address] | | | | + + + + + + | Epithelial | 50-100Comment: Testing | /lpf | EXTERNAL | | | Cells | performed at [facility];[address] | | LAB | | | | [address];[place] | | | | | | [address] | | | | + + + + + + | Bacteria, | 2+ (A)Comment: Testing | | EXTERNAL | | | UA | performed at [facility];[address] | | LAB | | | | [address];[place] | | | | | | [address] | | | | + + + + + + + + | Specimen | + + | Urine specimen | | (specimen) | + + + +---------+ + + | Performing | Address | City/State/Zipcode | Phone Number | | Organization | | | | + +---------+ + + | EXTERNAL LAB | | | | + +---------+ + + documented in this encounter Visit Diagnoses + + | Diagnosis | + + | Hydronephrosis with urinary obstruction due to ureteral calculus | + + documented in this encounter
--- OUTSIDE RECORDS SUMMARY | ~2020-01-15 | XMS | Encounter Summary ---
Demographics + + + | Address | [address] | | | [place] [address] | + + + | Home Phone | | + + + | Preferred Language | Unknown | + + + | Marital Status | Single | + + + | Restorationist Affiliation | CAT | + + + | Race | White | + + + | Ethnic Group | Not or | + + + Author + + + | Author | [facility] | + + + | Organization | [facility] | + + + | Address | Unknown | + + + | Phone | Unavailable | + + + Support + + +---------+ + | Name | Relationship | Address | Phone | + + +---------+ + | Mayito Shahid | ECON | Unknown | | + + +---------+ + Care Team Providers + +------+ + | Care Rib Puller Name | Role | Phone | + +------+ + | No Pcp Per Patient | PCP | Unavailable | + +------+ + Reason for Visit + + + | Reason | Comments | + + + | Postoperative | | | Questions | | + + + Encounter Details +--------+ + + + + | Date | Type | Department | Care Team | Description | +--------+ + + + + | 05/28/ | Telephone | Plastic and | Bronson Christine, | Postoperative | | 2016 | | Reconstructive | ,PhD [address] | Questions | | | | Surgery at [facility] [address] | [address] [place], [place] | | | | | [address] | [address] | | | | | Mailcode: [facility] | [phone] | | | | | [facility] | | | | | | and [place], | | | | | | [facility] | | | | | | [place], [place] | | | | | | [address] | | | | | | [phone] | | | +--------+ + + + [...]
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
--- OUTSIDE RECORDS SUMMARY | ~2020-01-15 | XMS | Encounter Summary ---
Demographics + + + | Address | [address] | | | [place] [address] | + + + | Home Phone | | + + + | Preferred Language | Unknown | + + + | Marital Status | Single | + + + | Holiness Affiliation | CAT | + + + | Race | White | + + + | Ethnic Group | Not or | + + + Author + + + | Author | [facility] | + + + | Organization | [facility] | + + + | Address | Unknown | + + + | Phone | Unavailable | + + + Support + + +---------+ + | Name | Relationship | Address | Phone | + + +---------+ + | Mayito Shahid | ECON | Unknown | | + + +---------+ + Care Team Providers + +------+ + | Care Health Administrator Name | Role | Phone | + +------+ + | No Pcp Per Patient | PCP | Unavailable | + +------+ + Reason for Visit + + + | Reason | Comments | + + + | Follow-up encounter | OP 05/26/16 L hand ulnar motor branch recon w allograft new | | | concenrs: c/o numbness and tingling | + + + Office Visit - E/M Services (Routine) +--------+--------+ + + + + | Status | Reason | Specialty | Diagnoses / | Referred By | Referred To | | | | | Procedures | Contact | Contact | +--------+--------+ + + + + | Closed | | Plastic | Diagnoses | [facility] | Pls Hand | | | | Surgery | Injury of | Epic Dept | Surg [facility] | | | | | ulnar nerve | | [address] | | | | | at wrist and | | Ave | | | | | hand level | | Mailcode: | | | | | of left arm, | | [facility] | | | | | subsequent | | for Health | | | | | encounter | | and Healing, | | | | | | | Building 1, | | | | | | | 5th Floor | | | | | | | [place], [place] | | | | | | | [address] | | | | | | | Phone: | | | | | | | [phone] | +--------+--------+ + + + + Encounter Details +--------+---------+ + + + | Date | Type | Department | Care Team | Description | +--------+---------+ + + + | 08/31/ | Office | Plastic and | Bronson Christine, | Neuropathy of left | | 2017 | Visit | Reconstructive | ,PhD [address] | median sensory nerve | | | | Surgery at [facility] [address] | [address] [place], [place] | (Primary Dx) | | | | [address] | [address] | | | | | Mailcode: [facility] | [phone] | | | | | [facility] | | | | | | and Healing, | | | | | | Building 1, 5th | | | | | | Floor [facility] [place] | | | | | | [address] | | | | | | [phone] | | | +--------+---------+ + + + [...] this encounter Last Filed Vital Signs + +---------+ + + | Vital Sign | Reading | Time Taken | Comments | + +---------+ + + | Blood Pressure | 127/70 | 08/31/2016 2:14 PM | | | | | PST | | + +---------+ + + | Pulse | 65 | 08/31/2016 2:14 PM | | | | | PST | | + +---------+ + + | Temperature | - | - | | + +---------+ + + | Respiratory Rate | 16 | 08/31/2016 2:14 PM | | | | | PST | | + +---------+ + + | Oxygen Saturation | 97% | 08/31/2016 2:14 PM | | | | | PST | | + +---------+ + + | Inhaled Oxygen | - | - | | | Concentration | | | | + +---------+ + + | Weight | - | - | | + +---------+ + + | Height | - | - | | + +---------+ + + | Body Mass Index | - | - | | + +---------+ + + documented in this encounter Progress Notes Bronson Christine MD,PhD - 08/31/2016 2:00 PM Nallely Farmer returns to clinic now three mon ths out from left ulnar motor branch repair using [employer]ance. She returns sooner than her sched uled appointment Because of increased tingling in the distribution of the 3rd webspace nerv e. Exam Normal appearing left hand with unchanged FDI wasting Full arom + Froments 2-pt intact throughout except for radial long and ulnar ring fingertips which are between 5 and 7mm. Normal 2-pt in these fingers at the level of the proximal phalanges Tinel difficult to localize, but seem most intense at the PIP flexion crease of these finge rs ctct - Impression Partial grade 2 injury of 3rd webspace nerve that appears to be recovering well Plan Use hand normally Scar massage to small scar collection in palm Anticipate resolution of tingling in 2 months F/u in the Spring. 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
--- OUTSIDE RECORDS SUMMARY | ~2020-01-15 | XMS | Encounter Summary ---
Demographics + + + | Address | [address] | | | [place] [address] | + + + | Home Phone | | + + + | Preferred Language | Unknown | + + + | Marital Status | Single | + + + | Latter-Day Affiliation | CAT | + + + | Race | White | + + + | Ethnic Group | Not or | + + + Author + + + | Author | [facility] | + + + | Organization | [facility] | + + + | Address | Unknown | + + + | Phone | Unavailable | + + + Support + + +---------+ + | Name | Relationship | Address | Phone | + + +---------+ + | Mayito Shahid | ECON | Unknown | | + + +---------+ + Care Team Providers + +------+ + | Care Make Ready Worker Name | Role | Phone | + [...] [id number] | | | | | | [place], [place] | | | | | | [address] | | | | | | [phone] | | | +--------+ + + + [...] | + + + + + | [facility] DEPARTMENT OF | [address] | [place] [address] | | | PATHOLOGY | [address] | | | + + + + + | [facility] DEPARTMENT OF | [address] | [place] [address] | | | PATHOLOGY | [address] [...] | + + + + + | [facility] | [address] | [place] [address] | | | PATHOLOGY | [address] | | | + + + + + | [facility] | [address] | [place] [address] | | | PATHOLOGY | [address] [...] | + + + + + | [facility] | [address] | [place] [address] | | | PATHOLOGY | [address] | | | + + + + + | [facility] | [address] | [place] [address] | | | PATHOLOGY | [address] | | | + + + + + documented in this encounter Visit Diagnoses Not on filedocumented in this encounter"
--- OUTSIDE RECORDS SUMMARY | ~2020-01-15 | XMS | Encounter Summary ---
Demographics + + + | Address | [address] | | | [place] [address] | + + + | Home Phone | | + + + | Preferred Language | Unknown | + + + | Marital Status | Single | + + + | Mu-Ism Affiliation | CAT | + + + | Race | White | + + + | Ethnic Group | Not or | + + + Author + + + | Author | [facility] | + + + | Organization | [facility] | + + + | Address | Unknown | + + + | Phone | Unavailable | + + + Support + + +---------+ + | Name | Relationship | Address | Phone | + + +---------+ + | Mayito Shahid | ECON | Unknown | | + + +---------+ + Care Team Providers + +------+ + | Care Irb Compliance Coordinator Name | Role | Phone | + +------+ + PCP | Unavailable | + +------+ + Reason for Visit +--------+ + | Reason | Comments | +--------+ + | Anemia | | +--------+ + Encounter Details +--------+ + + + + | Date | Type | Department | Care Team | Description | +--------+ + + + + | 01/24/ | Emergency | [facility] Emergency | | | | 2011 | | Department [address] | | | | | [address] | | | | | | [facility] | | | | | | [place], [place] | | | | | | [address] | | | | | | [phone] | | | +--------+ + + + [...]
--- OUTSIDE RECORDS SUMMARY | ~2020-01-15 | XMS | Encounter Summary ---
Demographics + + + | Address | [address] | | | [place] [address] | + + + | Home Phone | | + + + | Preferred Language | Unknown | + + + | Marital Status | Single | + + + | Scientology Affiliation | CAT | + + + | Race | White | + + + | Ethnic Group | Not or | + + + Author + + + | Author | [facility] | + + + | Organization | [facility] | + + + | Address | Unknown | + + + | Phone | Unavailable | + + + Support + + +---------+ + | Name | Relationship | Address | Phone | + + +---------+ + | Mayito Shahid | ECON | Unknown | | + + +---------+ + Care Team Providers + +------+ + | Care Geoint Analyst Name | Role | Phone | + [...] [id number] | | | | | | [facility] | | | | | | [place], [place] | | | | | | [address] | | | | | | [phone] | | | +--------+ + + + [...]
--- OUTSIDE RECORDS SUMMARY | ~2020-01-15 | XMS | Encounter Summary ---
Demographics + + + | Address | [address] | | | [place] [address] | + + + | Home Phone | | + + + | Preferred Language | Unknown | + + + | Marital Status | Single | + + + | Nondenominational Affiliation | CAT | + + + | Race | White | + + + | Ethnic Group | Not or | + + + Author + + + | Author | [facility] | + + + | Organization | [facility] | + + + | Address | Unknown | + + + | Phone | Unavailable | + + + Support + + +---------+ + | Name | Relationship | Address | Phone | + + +---------+ + | Mayito Shahid | ECON | Unknown | | + + +---------+ + Care Team Providers + +------+ + | Care Technical Healthcare Consultant Name | Role | Phone | + [...] | | | | | | | [place], [place] | | | | | | | [address] | | | | | | | Phone: | | | | | | | [phone] | +--------+--------+ + + + + Encounter [...] nerve | | | | Surgery at [facility] [address] [place], [place] | (Primary Dx) | | | | [address] | [address] | | | | | Mailcode: [facility] | [phone] | | | | | [facility] | | | | | | and Healing, | | | | | | Building [address], 5th | | | | | | Floor [facility] [place] | | | | | | [address] | | | | | | [phone] | | | +--------+---------+ + + + [...]
--- OUTSIDE RECORDS SUMMARY | ~2020-01-15 | XMS | Encounter Summary ---
Demographics + + + | Address | [address] | | | [place] [address] | + + + | Home Phone | | + + + | Preferred Language | Unknown | + + + | Marital Status | Single | + + + | Evangelical Affiliation | CAT | + + + | Race | White | + + + | Ethnic Group | Not or | + + + Author + + + | Author | [facility] | + + + | Organization | [facility] | + + + | Address | Unknown | + + + | Phone | Unavailable | + + + Support + + +---------+ + | Name | Relationship | Address | Phone | + + +---------+ + | Mayito Shahid | ECON | Unknown | | + + +---------+ + Care Team Providers + +------+ + | Care Air Force Senior Officer Name | Role | Phone | + +------+ + PCP | Unavailable | + +------+ + Encounter Details +--------+ + + + + | Date | Type | Department | Care Team | Description | +--------+ + + + + | 05/31/ | ED Progress | UNKNOWN DEPARTMENT | Report, Emergency | ED Progress Note | | 2006 | | [address] | Services | | | | Note-Transc | [address] | | | | | [place] | [place], [place] | | | | | | [address] | | | +--------+ + + + [...]
--- OUTSIDE RECORDS SUMMARY | ~2020-01-15 | XMS | Encounter Summary ---
Demographics + + + | Address | [address] | | | [place] [address] | + + + | Home Phone | | + + + | Preferred Language | Unknown | + + + | Marital Status | Single | + + + | Shinto Affiliation | 1041 | + + + | Race | Unknown | + + + | Ethnic Group | Unknown | + + + Author + + + | Author | [facility] | | | and [place] | + + + | Organization | [facility] | | | and [...] Team Providers + +------+ + | Care Clinical Nurse Name | Role | Phone | + +------+ + PCP | Unavailable | + +------+ + Encounter Details +--------+ + + + + | Date | Type | Department | Care Team | Description | +--------+ + + + + | 12/02/ | Emergency | [facility] | Kyle Arora, | Unspecified chest | | 2010 | | MEDICAL CENTER | [address] | pain | | | | EMERGENCY CENTER | [place], [place] | | | | | [address] | [address] | | | | | [place], [place] | [phone] | | | | | [address] | | | | | | [phone] | | | +--------+ + + + [...] | + +--------+ + + + | XR CHEST 2 VIEWS | Routin | 12/02/2010 | | Results for this | | | e | 8:43 PM | | procedure are in the | | | | PDT | | results section. | + +--------+ + + + documented in this encounter Results XR Chest 2 Vws (12/02/2010 8:43 PM PDT) + + | Specimen | + + | | + + + + + | Narrative | Performed At | + + + | [facility] [address] Ph: | | | Patient Name: REYNA FARMER Date of : | | | 1985 Medical Record: [id number] Account: [id number] | | | Exam Date/Time: 12/02/2010 20:07 Ordering | | | Physician: KYLE ARORA Order Detail: [id number] Exam Description: | | | XR CHEST 2 VIEW | | | REYNA | | | J SALINA XR CHEST 2 VIEW HISTORY: 25 years. Female. Chest pain. | | | TECHNIQUE: Frontal and lateral views of the chest were | | | obtained. COMPARISON: None. FINDINGS: The heart is normal in | | | size. No pulmonary vascular congestion. No pneumothorax. The lung | | | and pleural spaces are clear. IMPRESSION: 1. Normal chest. | | | | | + + + + + | Procedure Note | + + | Tremayne Joseph - 03/11/2019 3:21 PM PDT | | [facility] | | [facility] [address] | | | | | | Patient Name: REYNA FARMER | | Date of : 1985 | | Medical Record: [id number] | | Account: [id number] | | | | | | Exam Date/Time: 12/02/2010 20:07 | | Ordering Physician: KYLE ARORA | | Order Detail: [id number] | | Exam Description: XR CHEST 2 VIEW | | | | REYNA FARMER | | XR CHEST 2 VIEW | | | | HISTORY: | | 25 years. Female. Chest pain. | | | | TECHNIQUE: | | Frontal and lateral views of the chest were obtained. | | | | COMPARISON: | | None. | | | | FINDINGS: | | The heart is normal in size. No pulmonary vascular congestion. No | | pneumothorax. The lung and pleural spaces are clear. | | | | IMPRESSION: | | 1. Normal chest. | | | | | + + documented in this encounter Visit Diagnoses + + | Diagnosis | + + | Chest pain, unspecified | + + documented in this encounter"
--- OUTSIDE RECORDS SUMMARY | ~2020-01-15 | XMS | Encounter Summary ---
Demographics + + + | Address | [address] | | | [place] [address] | + + + | Home Phone | | + + + | Preferred Language | Unknown | + + + | Marital Status | Single | + + + | Sabianist Affiliation | CAT | + + + | Race | White | + + + | Ethnic Group | Not or | + + + Author + + + | Author | [facility] | + + + | Organization | [facility] | + + + | Address | Unknown | + + + | Phone | Unavailable | + + + Support + + +---------+ + | Name | Relationship | Address | Phone | + + +---------+ + | Mayito Shahid | ECON | Unknown | | + + +---------+ + Care Team Providers + +------+ + | Care Care Partner Name | Role | Phone | + +------+ + | No Pcp Per Patient | PCP | Unavailable | + +------+ + Encounter Details +--------+ + + + + | Date | Type | Department | Care Team | Description | +--------+ + + + + | 05/14/ | Anesthesia | Preoperative | Jacqueline Edwards, | | | 2016 | Event | [facility] at | RN [place], [place] | | | | | [place]PV | [address] | | | | | Stay [address] | | | | | [address] | | | | | | Mailcode: [id number] | | | | | | [facility] | | | | | | [address], [place] | | | | | | [address] | | | | | | [phone] | | | +--------+ + + + + Anesthesia Record + + + + + | Procedure Name | Responsible | Anesthesia Start | Anesthesia Stop Time | | | Anesthesiologist | Time | | + + + + + | [facility] PHONE | | | | + + + + + + + | No events on file. | + + +------+ | Meds | +------+ + + + No medications | on file. | + + + + + | No agents on file. | + + + + | No blood administrations on file. | + + + + | No LDAs on file. | + + documented in this encounter Social [...]
--- OUTSIDE RECORDS SUMMARY | ~2020-01-15 | XMS | Encounter Summary ---
Demographics + + + | Address | [address] | | | [place] [address] | + + + | Home Phone | | + + + | Preferred Language | Unknown | + + + | Marital Status | Single | + + + | Congregation Affiliation | CAT | + + + | Race | White | + + + | Ethnic Group | Not or | + + + Author + + + | Author | [facility] | + + + | Organization | [facility] | + + + | Address | Unknown | + + + | Phone | Unavailable | + + + Support + + +---------+ + | Name | Relationship | Address | Phone | + + +---------+ + | Mayito Shahid | ECON | Unknown | | + + +---------+ + Care Team Providers + +------+ + | Care Homemaking Rehabilitation Consultant Name | Role | Phone | [...] | +--------+ + + + + | 06/15/ | Telephone | Plastic and | Bronson Christine, | Postoperative | | 2016 | | Reconstructive | ,PhD [address] | Questions | | | | Surgery at [facility] [address] | [address] [place], [place] | | | | | [address] | [address] | | | | | Mailcode: [facility] | [phone] | | | | | [facility] | | | | | | and [place], | | | | | | [facility] | | | | | | [place], [place] | | | | | | [address] | | | | | | [phone] | | | +--------+ + + + [...]
--- OUTSIDE RECORDS SUMMARY | ~2020-01-15 | XMS | Encounter Summary ---
Demographics + + + | Address | [address] | | | [place] [address] | + + + | Home Phone | | + + + | Preferred Language | Unknown | + + + | Marital Status | Single | + + + | Yazidi Affiliation | CAT | + + + | Race | White | + + + | Ethnic Group | Not or | + + + Author + + + | Author | [facility] | + + + | Organization | [facility] | + + + | Address | Unknown | + + + | Phone | Unavailable | + + + Support + + +---------+ + | Name | Relationship | Address | Phone | + + +---------+ + | Mayito Shahid | ECON | Unknown | | + + +---------+ + Care Team Providers + +------+ + | Care Aircraft Cabin Cleaner Name | Role | Phone | + [...] | 2016 | | Reconstructive | ,PhD [address] | Questions | | | | Surgery at [facility] [address] | [address] [place], [place] | | | | | [address] | [address] | | | | | Mailcode: [facility] | [phone] | | | | | [facility] | | | | | | and [place], | | | | | | [facility] | | | | | | [place], [place] | | | | | | [address] | | | | | | [phone] | | | +--------+ + + + [...]
--- OUTSIDE RECORDS SUMMARY | ~2020-01-15 | XMS | Encounter Summary ---
Demographics + + + | Address | [address] | | | [place] [address] | + + + | Home Phone | | + + + | Preferred Language | Unknown | + + + | Marital Status | Single | + + + | Anglican Affiliation | 1041 | + + + | Race | Unknown | + + + | Ethnic Group | Unknown | + + + Author + + + | Author | [facility] | | | and [place] | + + + | Organization | [facility] | | | [...] Team Providers + +------+ + | Care Briquetting Machine Operator Name | Role | Phone | + +------+ + | Elmer Rangel MD | PCP | | + +------+ + Encounter Details +--------+ + + + + | Date | Type | Department | Care Team | Description | +--------+ + + + + | 12/26/ | Imaging | [facility] | Provider, | | | 2019 | Exam | [facility] | [address] | | | | | IMAGING [address] | [address] | | | | | [address] | [place] [address] | | | | | [place] [address] | | | | | | [phone] | | | +--------+ + + + [...] + +--------+ + + + | US ABDOMEN COMPLETE | Routin | 09/19/2019 | | Results for this | | | e | 12:00 AM | | procedure are in the | | | | PST | | results section. | + +--------+ + + + documented in this encounter Results US Abdomen Complete (09/19/2019 12:00 AM PST) + + | Specimen | + + | | + + + + + | Narrative | Performed At | + + + | External films for comparison only | [facility] | | | | | No results will be in the chart. | | + + + + +---------+ + + | Performing | Address | City/State/Zipcode | Phone Number | | Organization | | | | + +---------+ + + | [facility] | | | | + +---------+ + + documented in this encounter Visit Diagnoses Not on filedocumented in this encounter"
--- OUTSIDE RECORDS SUMMARY | ~2020-01-15 | XMS | Encounter Summary ---
Demographics + + + | Address | [address] | | | [place] [address] | + + + | Home Phone | | + + + | Preferred Language | Unknown | + + + | Marital Status | Single | + + + | Sikhism Affiliation | CAT | + + + | Race | White | + + + | Ethnic Group | Not or | + + + Author + + + | Author | [facility] | + + + | Organization | [facility] | + + + | Address | Unknown | + + + | Phone | Unavailable | + + + Support + + +---------+ + | Name | Relationship | Address | Phone | + + +---------+ + | Mayito Shahid | ECON | Unknown | | + + +---------+ + Care Team Providers + +------+ + | Care Account Receivable Associate Name | Role | Phone | + +------+ + PCP | Unavailable | + +------+ + Encounter Details +--------+ + + + + | Date | Type | Department | Care Team | Description | +--------+ + + + + | 04/16/ | ED Progress | UNKNOWN DEPARTMENT | Report, Emergency | ED Progress Note | | 2006 | | [address] [facility] | Services | | | | Note-Transc | [address] | | | | | [place]ley | [place], [place] | | | | | | [address] | | | +--------+ + + + [...]
--- OUTSIDE RECORDS SUMMARY | ~2020-01-15 | XMS | Encounter Summary ---
Demographics + + + | Address | [address] | | | [place] [address] | + + + | Home Phone [...] Author + + + | Author | [facility] | + + + | Organization | [facility] | + + + | Address | Unknown | + + + | Phone | Unavailable | + + + Support + + +---------+ + | Name | Relationship | Address | Phone | + + +---------+ + | Mayito Shahid | ECON | Unknown | | + + +---------+ + Care Team Providers + +------+ + | Care Liturgical Music Director Name | Role | Phone | + +------+ + | No Pcp Per Patient | PCP | Unavailable | + +------+ + Reason for Visit +--------+ + | Reason | Comments | +--------+ + | Other | | +--------+ + Encounter Details +--------+ + + + + | Date | Type | Department | Care Team | Description | +--------+ + + + + | 08/19/ | Telephone | Plastic and | Bronson Christine, | Other | | 2017 | | Reconstructive | ,PhD [address] | | | | | Surgery at [facility] [address] | [address] [place], [place] | | | | | [address] | [address] | | | | | Mailcode: [facility] | [phone] | | | | | [facility] | | | | | | and Healing, | | | | | | Building [address]th | | | | | | Floor [place], [place] | | | | | | [address] | | | | | | [phone] | | | +--------+ + + + [...]
--- OUTSIDE RECORDS SUMMARY | ~2020-01-15 | XMS | Encounter Summary ---
Demographics + + + | Address | [address] | | | [place] [address] | + + + | Home Phone [...] + + + | Author | [facility] | + + + | Organization | [facility] | + + + | Address | Unknown | + + + | Phone | Unavailable | + + + Support + + +---------+ + | Name | Relationship | Address | Phone | + + +---------+ + | Mayito Shahid | ECON | Unknown | | + + +---------+ + Care Team Providers + +------+ + | Care Automatic Quilling Machine Operator Name | Role | Phone | + +------+ + | No Pcp Per Patient | PCP | Unavailable | + +------+ + Reason for Visit + + + | Reason | Comments | + + + | Prescription | | + + + Encounter Details +--------+--------+ + + + | Date | Type | Department | Care Team | Description | +--------+--------+ + + + | 06/17/ | Refill | Plastic and | Bronson Christine, | Prescription | | 2015 | | Reconstructive | ,PhD [address] | | | | | Surgery at [facility] [address] | [address] [place], [place] | | | | | [address] | [address] | | | | | Mailcode: [facility] | [phone] | | | | | [facility] | | | | | | and Healing, | | | | | | Building [address]th | | | | | | Floor [place], [place] | | | | | | [address] | | | | | | [phone] | | | +--------+--------+ + + + Social History + +-------+ [...]
--- OUTSIDE RECORDS SUMMARY | ~2020-01-15 | XMS | Encounter Summary ---
Demographics + + + | Address | [address] | | | [place] [address] | + + + | Home Phone | | + + + | Preferred Language | Unknown | + + + | Marital Status | Single | + + + | Spiritism Affiliation | 1041 | + + + | Race | Unknown | + + + | Ethnic Group | Unknown | + + + Author + + + | Author | [facility] | | | and [place] | + + + | Organization | [facility] | | | and [...] Team Providers + +------+ + | Care Cassandra Developer Name | Role | Phone | + +------+ + PCP | Unavailable | + +------+ + Encounter Details +--------+ + + + + | Date | Type | Department | Care Team | Description | +--------+ + + + + | 03/30/ | Emergency | [facility] | Kathy Scott, | Headache | | 2006 | | MEDICAL CENTER | DO [address] | | | | | EMERGENCY CENTER | [place] [address] | | | | | [address] | [phone] | | | | | [place], [place] | | | | | | [address] | Conversion | | | | | [phone] | Transaction, | | | | | | Provider Unknown | | | | | | [phone] | | | | | | | | +--------+ + + [...] + | Diagnosis | + + | Headache(784.0) Headache | + + documented in this encounter"
--- OUTSIDE RECORDS SUMMARY | ~2020-01-15 | XMS | Encounter Summary ---
Demographics + + + | Address | [address] | | | [place] [address] | + + + | Home Phone | | + + + | Preferred Language | Unknown | + + + | Marital Status | Single | + + + | Jewish Affiliation | CAT | + + + | Race | White | + + + | Ethnic Group | Not or | + + + Author + + + | Author | [facility] | + + + | Organization | [facility] | + + + | Address | Unknown | + + + | Phone | Unavailable | + + + Support + + +---------+ + | Name | Relationship | Address | Phone | + + +---------+ + | Mayito Shahid | ECON | Unknown | | + + +---------+ + Care Team Providers + +------+ + | Care Curtain Drier Name | Role | Phone | + [...] + + + + | 05/26/ | Hospital | [facility] [address] | Bronson Christine, | | | 2016 | Encounter | [address] | ,PhD [address] | | | | | [address] | [address] [place], [place] | | | | | [facility] | [address] | | | | | (MNP/[facility]) | [phone] | | | | | [place], [place] | | | | | | [address] | | | | | | [phone] | | | +--------+ + + + [...] to 4:[address] Bronson Christine at [phone]. After hours, weekends and holidays, call the Hospital [facility] Brusher Assembler at [phone] and asked to have your doctor paged [...] + + + | [facility] | [address] | [place], [place] | | | [facility]ARE | [address] | [address] | | | TESTS | | | [...] | + + documented in this encounter Administered Medications + +--------+ [...] 16 12:48 | | | | | dose, Wed05/26/16 at 1300 | | PM PST | | | | + +--------+ + +------+------+ + +---+ | | | + +---+ | acetaminophen (TYLENOL) tablet | | | 1 dose, Starting Wed05/26/16 at | | | 1247, Until Wed05/26/16 at 1248 | | + +---+ | | | + +---+ + +---------+ +--------+---+---+ | HYDROmorphone (DILAUDID) | New Bag | 05/26/20 | 0.5 mg | | | | injection 0.2-0.5 mg 0.2-0.5 mg, | | 16 1:48 | | | | | intravenous, POSTPROCEDURE PRN, | | PM PST | | | | | Starting 05/26/16 at 1308, | | | | | | | Until e 05/26/16 at 2340, | | | | [...] | | | | Until 05/26/16 at 1301, | | | | [...] | | | Auricula | | dose, Wed05/26/16 at 1330 | | | | | r | + + + +---------+---+ + + +---+ | | | + +---+ | scopolamine (TRANSDERM-SCOPE) | | | 1.5 mg (1 mg over 3 days) 1 | | | dose, Starting 05/26/16 at | | | 1246, Until e 05/26/16 at 2340 | | + +---+ | | | + +---+ documented in this encounter
--- OUTSIDE RECORDS SUMMARY | ~2020-01-15 | XMS | Encounter Summary ---
Demographics + + + | Address | [address] | | | [place] [address] | + + + | Home Phone | | + + + | Preferred Language | Unknown | + + + | Marital Status | Single | + + + | Jainism Affiliation | CAT | + + + [...] Team Providers + +------+ + | Care Admissions Dean Name | Role | Phone | + +------+ + | No Pcp Per Patient | PCP | Unavailable | + +------+ + Reason for Visit + + + | Reason | Comments | + + + | Postoperative | | | Complications | | + + + Encounter Details +--------+ + + + + | Date | Type | Department | Care Team | Description | +--------+ + + + + | 05/27/ | Telephone | Plastic and | Bronson Christine, | Postoperative | | 2016 | | Reconstructive | ,PhD [address] | Complications | | | | Surgery at [facility] [address] | [place], [place] | | | | | [address] | [address] | | | | | Mailcode: [facility] | [phone] | | | | | [facility] | | | | | | and [place], | | | | | | [facility] | | | | | | [place], [place] | | | | | | [address] | | | | | | [phone] | | | +--------+ + + + [...]
--- OUTSIDE RECORDS SUMMARY | ~2020-01-15 | XMS | Encounter Summary ---
Demographics + + + | Address | [address] | | | [place] [address] | + + + | Home Phone [...] + + + | Author | [facility] | + + + | Organization | [facility] | + + + | Address | Unknown | + + + | Phone | Unavailable | + + + Support + + +---------+ + | Name | Relationship | Address | Phone | + + +---------+ + | Mayito Shahid | ECON | Unknown | | + + +---------+ + Care Team Providers + +------+ + | Care Brass Sorter Name | Role | Phone | + [...] | | [address] | ,PhD [address] | [facility] | | | | [address] [facility] | [place], [place] | RECONSTRUCTION WITH | | | | Ambulatory Surgery | [address] | ALLOGRAFT VS. | | | | Admitting Desk | [phone] | POSSIBLE SURAL NERVE | | | | Located on the 4th | | AUTOGRAFT | | | | floor, Room [facility] | | | | | | [place], [place] | | | | | | [address] | | | +--------+---------+ + + + [...] to 4:[address] Bronson Christine at [phone]. After hours, weekends and holidays, call the [facility] at [phone] and asked to have your doctor paged [...] + + + | [facility] | [address] | [place], [place] | | | [place] [facility] [place] | [address] | [address] | | | TESTS | | | [...] | | | Auricula | | dose, [facility] 05/26/16 at 1330 | | | [...]
--- OUTSIDE RECORDS SUMMARY | ~2020-01-15 | XMS | Encounter Summary ---
Demographics + + + | Address | [address] | | | [place] [address] | + + + | Home Phone | | + + + | Preferred Language | Unknown | + + + | Marital Status | Single | + + + | Adventist Affiliation | 1041 | + + + | Race | Unknown | + + + | Ethnic Group | Unknown | + + + Author + + + | Author | [facility] | | | and [place] | + + + | Organization | [facility] | | | and [...] Team Providers + +------+ + | Care Final Inspector And Tester Name | Role | Phone | + +------+ + PCP | Unavailable | + +------+ + Encounter Details +--------+ + + + + | Date | Type | Department | Care Team | Description | +--------+ + + + + | 05/12/ | Emergency | [facility] | Juan C Sharp | Unspecified Chest | | 2006 - | | MEDICAL CENTER | DO Rolando Langston | Pain | | | | EMERGENCY CENTER | [place], [place] | | | 05/13/ | | [address] | [address] | | | 2006 | | [place], [place] | | | | | | [address] | | | | | | [phone] | | | +--------+ + + + [...]
--- OUTSIDE RECORDS SUMMARY | ~2020-01-15 | XMS | Encounter Summary ---
Demographics + + + | Address | [address] | | | [place] [address] | + + + | Home Phone | | + + + | Preferred Language | Unknown | + + + | Marital Status | Single | + + + | Shinto Affiliation | 1041 | + + + | Race | Unknown | + + + | Ethnic Group | Unknown | + + + Author + + + | Author | [facility] | | | and [place] | + + + | Organization | [facility] | | | [...] Team Providers + +------+ + | Care Streaming Media Specialist Name | Role | Phone | + +------+ + PCP | Unavailable | + +------+ + Encounter Details +--------+ + + + + | Date | Type | Department | Care Team | Description | +--------+ + + + + | 12/10/ | Hospital | [facility] | Donna Guerra, | Shortness of breath; | | 2010 | Encounter | CONVERSION [address] | MD [address] | OTHER CHEST PAIN; | | | | [address] | [place] [address] | Tietze's disease; | | | | [place], [place] | [phone] | Anxiety state, | | | | [address] | | unspecified; | | | | [phone] | | Unspecified chest | | | | | | pain | +--------+ + + + + Social [...] XR CHEST 2 VIEWS | Routin | 12/10/2010 | | Results for this | | | e | 6:39 PM | | procedure are in the | | | | PDT | | results section. | + +--------+ + + + documented in this encounter Results XR Chest 2 Vws (12/10/2010 6:39 PM PDT) + + | Specimen | + + | | + + + + + | Narrative | Performed At | + + + | [facility] [address] Ph: | | | Patient Name: REYNA FARMER Date of : | | | 1985 Medical Record: [id number] Account: [id number] | | | Exam Date/Time: 12/10/2010 18:25 Ordering | | | Physician: DONNA GUERRA Order Detail: [id number] Exam Description: | | | XR CHEST 2 VIEW | | | REYNA | | | Bright FARMER XR CHEST 2 VIEW 12/10/2010 6:25 PM HISTORY: 25 years. | | | Female. Shortness of breath TECHNIQUE: PA and lateral views | | | of the chest are obtained using dual energy technique. COMPARISON: | | | November. FINDINGS: The heart is normal in size. The | | | lungs are normally expanded. The pulmonary vascular pattern is | | | normal. No acute airspace disease, parenchymal nodule, mass, | | | pleural effusion or pneumothorax is noted. No hilar adenopathy is | | | seen. The osseous structures are intact. IMPRESSION: 1. No | | | acute airspace disease. | | + + + + + | Procedure Note | + + | Jake, Rad Conversion - 03/11/2019 3:21 PM PDT | | [facility] | | [facility] [address] | | | | | | Patient Name: REYNA FARMER | | Date of : 1985 | | Medical Record: [id number] | | Account: [id number] | | | | | | Exam Date/Time: 12/10/2010 18:25 | | Ordering Physician: DONNA GUERRA | | Order Detail: [id number] | | Exam Description: XR CHEST 2 VIEW | | | | REYNA FARMER | | XR CHEST 2 VIEW | | 12/10/2010 6:25 PM | | | | HISTORY: | | 25 years. Female. Shortness of breath | | | | TECHNIQUE: | | PA and lateral views of the chest are obtained using dual energy technique. | | | | COMPARISON: November | | . | | | | FINDINGS: | | The heart is normal in size. The lungs are normally expanded. The | | pulmonary vascular pattern is normal. No acute airspace disease, | | parenchymal nodule, mass, pleural effusion or pneumothorax is noted. No | | hilar adenopathy is seen. The osseous structures are intact. | | | | IMPRESSION: | | 1. No acute airspace disease. | | | | | + + documented in this encounter Visit Diagnoses + + | Diagnosis | + + | Shortness of breath | + + | Other chest pain | + + | Tietze's disease | + + | Anxiety state, unspecified | + + | Chest pain, unspecified | + + documented in this encounter"
--- OUTSIDE RECORDS SUMMARY | ~2020-01-15 | XMS | Encounter Summary ---
Demographics + + + | Address | [address] | | | [place] [address] | + + + | Home Phone | | + + + | Preferred Language | Unknown | + + + | Marital Status | Single | + + + | Temple Affiliation | 1041 | + + + | Race | Unknown | + + + | Ethnic Group | Unknown | + + + Author + + + | Author | [facility] | | | and [place] | + + + | Organization | [facility] | | | and [...] Team Providers + +------+ + | Care Stumper Feller Name | Role | Phone | + +------+ + | Elmer Rangel MD | PCP | | + +------+ + Encounter Details +--------+ + + + + | Date | Type | Department | Care Team | Description | +--------+ + + + + | 08/10/ | Hospital | [facility] | Conversion | | | 2017 | Encounter | [facility] OT OP | Transaction, | | | | | [address] | Provider Unknown | | | | | [place] | | | | | | [phone] | (Fax) | | | | | [phone] | | | +--------+ + + + [...] documented as of this encounter Miscellaneous Notes Miscellaneous - Guadalupe Medel OTR - 08/10/2016 7:55 AM PSTFormatting of this note m ight be different from the original. Treatment Plan by VICTORIA Cohen at 08/10/16 1505 Author: VICTORIA Cohen Service: (none) Author Type: Occupational Therapist Filed: 08/10/16 6788 Date of Service: 08/10/16 0755 Status: Signed Thermo Cementing Folder Operator: Donta Medel OT/Zohra (Occupational Therapist) Merged With [facility] Occupational Therapy Initial Evaluation Summary/Plan of Care Date: 08/10/16 Start time: 803 Treatment Session: Initial evaluation: 58 minutes; Tx Ex: 18 minutes Diagnosis: Injury of ulnar nerve (branch) at wrist and hand level of left arm, subsequent e ncounter Date of onset: March 142015 Referring Practitioner: Bronson Christine MD PHD Reason for Referral: Occupational Therapy evaluate and treat; Protective splinting; Post-O perative Therapy; Hand Strengthening Insurance authorization/expiration date: 1 visit authorized; 09/04/16 Subjective: Chief complaint: Pt reports she feels some of her symptoms are progressively getting worse including diminished strength; sensory symptoms appear to be improving. Symptoms: Pt notes scar tissue in the center of the palm upon palpation and indicates that when she squeezes if feels like there is a marble in her palm; Pt also reports and notes sc ar tissue at base of palm medial side; changes in sensation reported at the tip and ulnar si de of the long finger and tip of and radial side of the ring finger; symptoms have improved with the ring finger most impaired; no sensory changes of the little finger; abnormal sensat ions reported, like a shock when pressure applied to the scar and pain in center of palm whe n flexing fingers while holding an object. Duration of Symptoms: Numbness all of the time Patient goal for therapy: To get strength and movement back to the Left hand/fingers; to re gain sensation History of current diagnosis: The patient is a 31 year old female who was referred for Occu pational Therapy following an injury to the to the motor branch of the ulnar nerve of her le ft non-dominant hand. The pt reports she was using a architect internship knife to pry apart frozen dung ers when the knife slipped resulting in an injury to the ulnar nerve. Functionally the pt r eports difficulty with opening or buttoning clothing, tightening objects, holding heavy obje cts, opening car doors etc. She reports she has dropped objects given weakness and the prob lems appear to be getting worse. Previous diagnostic testing: Nerve tests Past medical/surgical history: Medications: pt indicates she is taking no medications Allergies: Alexander Uribeergeernie Pain complaint: Current level: 1 - hand Location: Medial side of forearm (wrist to elbow) Level: 5 Type: Dull aching pain that will shoot up to the elbow - fatigue Frequency: Occurs when carrying items, and throughout the day with regular house chores - noticeable when resting Duration: Discomfort resolves in about an hour Home setting/prior functional status: Pt resides at home with her and 5 children ag es 12 to 1. Self care: Activities that the pt finds challenging is managing hair (shampoo, brush), quang lying make up and fasteners (buttons) IADL's: Any activity that involves using the hand - taking out laundry, folding laundry, c utting items, emptying the screw machine setter etc. Additional Comments: The pt arrives for her appointment and fills out all paperwork prior to the session and offers copies of the operative report and HEP. Pt reports she has gone o n line to identify other exercises to promote the recovery of function. The pt reports she has a follow up appointment with the physician the end of August. Objective: Observation: Pt ambulates back to the exam room and indicates a readiness to pursue the [facility] upational Therapy evaluation. Weather makes traveling to appointments challenging. Hand dominance: Right handed Posture: Hand resting on table, palm down, fingers extended Spontaneous Use: Actively opening and closing the digits; pt demonstrates areas of perceiv ed deficiency with regard to abduction/adduciton of the digits. Guarding: None noted; pt reports she does not like to look at the scar Scar: Scar volar side of palm with scar starting medial to the thenar eminance to just dist al to the palm, ulnar side, wrist crease External Support: Pt has a splint (resting ivan) that she no longer uses; purpose: immobili zation Tests/objective evaluation: ROM: No limitations of ROM noted when assessing forearm, wrist and hand/digits Strength: Thumb: +Froment sign (flexion of the thumb IP joint to compensate for weakness of the firs t dorsal interosseous muscle adduction Manufacturing Engineer Assembly strength Right: 68, 70, and 70#'s with an average of 69.3#'s placing the pt above the 25% when comp ared with females 30 to 34 years of age Left: 40, 53, and 64#'s (adjusted device to avoid pressure to mid palm) with an average of 52.3#'s placing the pt below the 25% when compared with females 30 to 34 years of age Lateral pinch RIght: 13, 16, and 18#'s with an average of 16#'s which is WFL when compared with women 3 0 to 34 years of age (18.7 +/- 3.0#'s) Left: 6, 6, and 6#'s with an average of 6#'s which is impaired when compared with women 30 to 34 years of age (17.8 +/- 3.6#'s) Palmar pinch Right: 18, and 17 with an average of 17.5#'s which is WFL when compared with women 30 to 34 years of age (19.3 +/- 5.0#'s) Left: 3, 7 - thumb IP flexed with an average of 5#'s which is impaired when compared with women 30 to 34 years of age (18.1 +/- 4.8#'s) Edema: None observed; pt reports her hand appears swollen in the AM. She reports she lays on her left side. Swelling diminishes with activity Sensation: No formal sensory testing completed during this session; reports of diminished s ensation and impact on function noted. UE coordination: 9 hole peg test Right: 19.44 seconds; WFL when compared with females 30 to 34 years of age (16.3 +/- 1.9 s econds) Left: 23.09 seconds; impaired when compared with females 30 to 34 years of age (17.8 +/- 2 .0 seconds) Observation: Although the pt was observed to use the thumb and first 2 to 3 digits, when removing pegs with her left hand the pt transitioned to using primarily the index and thumb finger Quick DASH outcome measure: Score 45% impairment 1. Open a tight or new jar - 4; severe difficulty 2. Do heavy title i paraprofessional (wash melara,floor) - 3; moderate difficulty 3. Carry a shopping bag or briefcase - 4; severe difficulty 4. Wash your back - 3; moderate difficulty 5. Use a knife to cut food - 3; moderate difficulty 6. Recreational activities in which you take some force or impact through your arm, should er or hand (golf, hammering, tennis) - 3; moderate difficulty 7. Past week, UE interfered with normal social activities - 4; Quite a bit 8. Past week, limited in work, or regular daily activities give UE deficits - 3; Moderatel y limited 9. Arm shoulder or hand pain - 2; Mild 10. Tingling in your arm, shoulder, hand (pins and needles) - 3; Moderate 11. Past week, difficulty sleeping because of pain in your arm, shoulder, hand - 1; no dif ficulty Treatment: Tx ex/pt education: Education occurs verbally and visually with demo and in writing as ind icated. Pt states understanding verbally and visually with demo as indicted. Topics discus sed include: Scar management: Reinforced the benefit of massaging tissues around the scar to break up s car tissue and to promote ROM and to diminish discomfort. Pt has difficulty massaging direc tly on the scar but is able to tolerate massaging around the scar. Sensory desensitization: The pt has difficulty tolerating the stim received when pressure is applied to the scar especially mid palm stating is feels like a shock of electricity. Pt encouraged to provide stim to the palm and over the scar to diminish when may be a hypersen sitivity. Pt was able to tolerate working with putty and larger sized round objects (tennis ball etc). A small marble was not tolerated. Other suggestions included placing the hand in a bin of rice while doing AROM exercises. Functionally, the pt was educated to consider using a gel glove to improve tolerance of pre ssure to the palm. Pt indicates she modifies her title inspector when required to push a shopping cart . The glove may disperse pressure making the stim provided more tolerable. Putty exercises: The pt was provided with yellow putty and encouraged to work with the put ty up to 10 minutes several times (3 x's) a day. Exercises included squeezing, rolling, pin guillermina and finger abd/adduction exercises. Pt appears receptive to working on strength. HEP: The pt was encouraged to continue to do the AROM exercises given previously Disability adjustment: Addressed pt's questions and concerns regarding the injury and func tional implications. Addressed questions regarding the sensory changes - would sensation re turn; addressed questions regarding strengthening - will she regain strength. Validated the pt's awareness of the changes she is experiencing in her hand and how it is related to the i njury she sustained. Reinforced the use of compensatory strategies to allow for safe and in dependent completion of daily tasks. The challenge the pt appears to be experiencing is cayla t more time is required when completing tasks in which the leftt hand is needed. Assessment: Summary/analysis of evaluation: The patient arrives for the therapy session and indicates readiness to participate in a therapy evaluation. Strengths/weaknesses identified include: ROM of forearm, wrist, hand appears WFL; diminished title inspector/pinch strength; impaired sensation (3rd/4th digits); Hypersensitivity over scar which affects use of hand and hand function; d iminished safety/independence when performing ADL/IADL's; following through with a HEP to pr omote/maximize hand function (ROM exercises); attempting to utilize the hand when performing daily tasks and modifying her approach as indicated. The pt may benefit by continued OT se rvices at this time to maximize the recovery of function of the left non-dominant hand and t o improve her safety and independence when performing ADL/IADL tasks. Problem list: Diminished sensation 3rd and 4th digits; Diminished hand strength; possible adhesions affecting perceived sensory changes of the left hand; decreased independence with ADL/IADL's given diminished hand function STG: Further establish a baseline of function as indicated including but not limited to sensatio n Introduce/reinforce UE mgmt tech to prevent adhesions, diminish discomfort and promote ROM of digits Introduce/reinforce a UE HEP to promote hand strength; pt's title inspector/pinch will improve by 3 to 5#'s Introduce/reinforce a UE HEP to enhance coordination; pt's performance on standardized test s will improve by 3 to 5 seconds Address ADL/IADL concerns; introduce/reinforce AE/techniques as indicted to promote safety and independence LTG: Pt will demonstrate improved left hand function as indicated by improved baseline scores Pt will recall, demonstrate and utilize UE mgmt techniques to promote improved ability to u tilize the hand when performing daily tasks as indicated by an improved Quick DASH outcome m easure. Pt will recall, demonstrate and follow thru with a HEP to promote hand strength; pt title inspector wi ll improve by 5 to 10#'s Pt will recall, demonstrate and follow thru with a HEP to promote hand coordination as demo nstrated/reported by improved functional abilities and or as indicated on standardizes tests scores of WFL Pt will recall, demonstrate and utilize AE/tech to enhance her independence and safety when performing ADL/IADL tasks. Rehabilitation prognosis: Good rehab potential to reach the established goals Patient/Caregiver involved in goal development and in agreement with proposed treatment jossie n? Yes Plan: Recommended treatment plan: Tx Ex: 96099; modalities as indicated; Self care: 64340; Func tional Dynamic Activity: 88241; Neuro Muscular re-ed: 18420 Rationale for skilled intervention: To maximize the recovery of left hand function to renée kendalle her safety and independence when performing ADL/IADL activities. Frequency: 1 x weekly Duration: 12 weeks Certification dates 08/10/16 to 09/29/16 Thank you for this referral. If you have any questions regarding this report, please feel free to contact me at [phone] [email or web address] [phone]. DONTA MEDEL OT/Zohra 08/10/2016 7:55 AM Please sign below to indicate agreement with treatment plan: Bronson Christine MD PHD Date documented in t his encounter Plan of Treatment Not on filedocumented as of this encounter Visit Diagnoses Not on filedocumented in this encounter"
--- OUTSIDE RECORDS SUMMARY | ~2020-01-15 | XMS | Encounter Summary ---
Demographics + + + | Address | [address] | | | [place] [address] | + + + | Home Phone | | + + + | Preferred Language | Unknown | + + + | Marital Status | Single | + + + | Synagogue Affiliation | CAT | + + + [...] Team Providers + +------+ + | Care Chief Airline Radio Operator Name | Role | Phone | + +------+ + | No Pcp Per Patient | PCP | Unavailable | + +------+ + Reason for Referral Consultation (Routine) +--------+--------+ + + + + | Status | Reason | Specialty | Diagnoses / | Referred By | Referred To | | | | | Procedures | Contact | Contact | +--------+--------+ + + + + | Closed | | Occupational | Diagnoses | [facility], | [facility] | | | | Therapy | Laceration | MD Bronson,PhD | [facility] [address] | | | | | of left | [address] | | | | | ulnar nerve | [address] | Mailcode: | | | | | at wrist and | [facility] [place] | [facility] Center | | | | | hand level, | [address] | for Health | | | | | subsequent | Phone: | and Healing, | | | | | encounter | [phone] | Building [address], | | | | | Procedures | Fax: | [address] Floor | | | | | OCC HAND | [phone] | [facility] [place] | | | | | THERAPY | | [address] | | | | | REFERRAL IN | | Phone: | | | | | [facility] | | [phone] | | | | | | | Fax: | | | | | | | [phone] | +--------+--------+ + + + + Reason for Visit + + + | Reason | Comments | + + + | Postoperative | | | Complications | | + + + Encounter Details +--------+ + + + + | Date | Type | Department | Care Team | Description | +--------+ + + + + | 06/03/ | Telephone | Plastic and | Bronson Christine, | Postoperative | | 2016 | | Reconstructive | ,PhD [address] | Complications | | | | Surgery at [facility] [address] | [place], [place] | | | | | [address] | [address] | | | | | Mailcode: [facility] | [phone] | | | | | [facility] | | | | | | and [place], | | | | | | [facility] | | | | | | [place], [place] | | | | | | [address] | | | | | | [phone] | | | +--------+ + + + [...] ulnar nerve at wrist and hand level, subsequent encounter - Primary | + + documented in this encounter"
--- OUTSIDE RECORDS SUMMARY | ~2020-01-15 | XMS | Encounter Summary ---
Demographics + + + | Address | [address] | | | [place] [address] | + + + | Home Phone | | + + + | Preferred Language | Unknown | + + + | Marital Status | Single | + + + | Jehovah'S Witness Affiliation | 1041 | + + + | Race | Unknown | + + + | Ethnic Group | Unknown | + + + Author + + + | Author | [facility] | | | and [place] | + + + | Organization | [facility] | | | [...] Team Providers + +------+ + | Care Fire Prevention Chief Name | Role | Phone | + [...] | | GISELA RODRIGUEZ | [place] [address] | | | | | [place] [address] | | | | | | [phone] | | | +--------+ + + + [...] + +--------+ + + + | US PELVIS W | Routin | 09/25/2019 | | Results for this | | TRANSVAGINAL | e | 12:00 AM | | procedure are in the | | | | PDT | | results section. | + +--------+ + + + documented in this encounter Results US Pelvis W Transvaginal (09/25/2019 12:00 AM PDT) + + | Specimen | [...]
--- OUTSIDE RECORDS SUMMARY | ~2020-01-15 | XMS | Encounter Summary ---
Demographics + + + | Address | [address] | | | [place] [address] | + + + | Home Phone | | + + + | Preferred Language | Unknown | + + + | Marital Status | Single | + + + | Hinduism Affiliation | 1041 | + + + | Race | Unknown | + + + | Ethnic Group | Unknown | + + + Author + + + | Author | [facility] | | | and [place] | + + + | Organization | [facility] | | | and [...] Team Providers + +------+ + | Care Screener Perfumer Name | Role | Phone | + [...] | | GISELA RODRIGUEZ | [place] [address] | | | | | [place] [address] | | | | | | [phone] | | | +--------+ + + + [...] + +--------+ + + + | US RENAL COMPLETE | Routin | 04/26/2015 | | Results for this | | | e | 12:00 AM | | procedure are in the | | | | PDT | | results section. | + +--------+ + + + documented in this encounter Results US Renal Complete (04/26/2015 12:00 AM PDT) + + | Specimen [...]
--- OUTSIDE RECORDS SUMMARY | ~2020-01-15 | XMS | Encounter Summary ---
Demographics + + + | Address | [address] | | | [place] [address] | + + + | Home Phone [...] Author | [facility] | + + + | Organization | [facility] | + + + | Address | Unknown | + + + | Phone | Unavailable | + + + Support + + +---------+ + | Name | Relationship | Address | Phone | + + +---------+ + | Mayito Shahid | ECON | Unknown | | + + +---------+ + Care Team Providers + +------+ + | Care Head Baggage Porter Name | Role | Phone | + [...] | | | | | Surgery at [facility] [address] | [address] [place], [place] | | | | | [address] | [address] | | | | | Mailcode: [facility] | [phone] | | | | | [facility] | | | | | | and Healing, | | | | | | Building [address], [address]th | | | | | | Floor [place], [place] | | | | | | [address] | | | | | | [phone] | | | +--------+ + + + [...]
--- OUTSIDE RECORDS SUMMARY | ~2020-01-15 | XMS | Encounter Summary ---
Demographics + + + | Address | [address] | | | [place] [address] | + + + | Home Phone | | + + + | Preferred Language | Unknown | + + + | Marital Status | Single | + + + | Mandaeism Affiliation | CAT | + + + | Race | White | + + + | Ethnic Group | Not or | + + + Author + + + | Author | [facility] | + + + | Organization | [facility] | + + + | Address | Unknown | + + + | Phone | Unavailable | + + + Support + + +---------+ + | Name | Relationship | Address | Phone | + + +---------+ + | Mayito Shahid | ECON | Unknown | | + + +---------+ + Care Team Providers + +------+ + | Care Help Desk Representative Name | Role | Phone | + [...] | | | | | Surgery at [facility] [address] | [address] [place], [place] | | | | | [address] | [address] | | | | | Mailcode: [facility] | [phone] | | | | | [facility] | | | | | | and Healing, | | | | | | Building | | | | | | Floor [place], [place] | | | | | | [address] | | | | | | [phone] | | | +--------+ + + + [...]
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
--- OUTSIDE RECORDS SUMMARY | ~2020-01-15 | XMS | Encounter Summary ---
Demographics + + + | Address | [address] | | | [place] [address] | + + + | Home Phone | | + + + | Preferred Language | Unknown | + + + | Marital Status | Single | + + + | Worship Affiliation | CAT | + + + [...] Team Providers + +------+ + | Care Data Security Consultant Name | Role | Phone | [...] | | | at wrist and | [place], [place] | [facility] | | | | | hand level, | [address] | for Health | | | | | subsequent | Phone: | and Healing, | | | | | encounter | [phone] | Building 1, | | | | | Procedures | Fax: | [address] Floor | | | | | OCC HAND | [phone] | [place], [place] | | | | | THERAPY | | [address] | | | | | REFERRAL IN | | Phone: | | | | | [facility] | | [phone] | | | | | | | Fax: | | | | | | | [phone] | +--------+--------+ + + + + Encounter [...] wrist | | | | Services at [facility] | [address] [place], | and hand level, | | | | [place] [address] | [place] [address] | subsequent encounter | | | | [address] Mailcode: | [phone] | (Primary Dx) | | | | [facility] | | | | | | Health and Healing, | | | | | | [facility] | | | | | | [place], [place] | | | | | | [address] | | | | | | [phone] | | | +--------+---------+ + + + [...] hand level, subsequent encounter S64.02XD V5 8.89 [place] OCCUPATIONAL THERAPY EVALUATION 955.2 Comorbidities: none Insurance: Payor: [place] / Plan: OMAP PLUS / Product Type: Medicaid / Service period from: 06/08/2016 to: 07/08/2016 Next progress report/g-code due by 07/08/2016 Number visits used/authorized: 1 used [facility] OCCUPATIONAL THERAPY EVALUATION SUBJECTIVE: History of [...] Left Guyon's canal release 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 No wrist flexion [...] therapist regarding any change in their status. [facility] [address] [facility], 3rd [place] [address] [phone] signed by Gali Whitten OT at 06/08/2016 3:43 PM PSTdocum ented in this encounter Plan of Treatment Not on filedocumented as of this encounter Procedures + +--------+ + + + | Procedure Name | Priori | Date/Time | Associated Diagnosis | Comments | | | ty | | | | + +--------+ + + + | [place] OCCUPATIONAL | Routin | 06/08/2016 | Laceration [...]
--- OUTSIDE RECORDS SUMMARY | ~2020-01-15 | XMS | Encounter Summary ---
Demographics + + + | Address | [address] | | | [place] [address] | + + + | Home Phone | | + + + | Preferred Language | Unknown | + + + | Marital Status | Single | + + + | Mu-Ism Affiliation | [id number] | + + + | Race | Unknown | + + + | Ethnic Group | Unknown | + + + Author + + + | Author | [facility] | | | and [place] | + + + | Organization | [facility] | | | [...] Team Providers + +------+ + | Care Hand Packer Name | Role | Phone | + +------+ + | Elmer Rangel MD | PCP | | + +------+ + Reason for Visit +--------+--------+ + | Reason | Onset | Comments | | | Date | | +--------+--------+ + | Other | 12/06/ | | | | 2020 | | +--------+--------+ + Encounter Details +--------+ + + + + | Date | Type | Department | Care Team | Description | +--------+ + + + + | 12/06/ | Telephone | [facility] [place] | [place], | Other | | 2020 | | GASTROENTEROLOGY | NancyKAELYN null [address] | | | | | [address] | [address] | | | | | [address] [place], [place] | [place], [place] | | | | | [address] | [address] | | | | | [phone] | | | +--------+ + + + [...] this encounter Miscellaneous Notes Telephone Encounter - Frances Barreto - 12/14/2019 8:28 AM PDTThese have been received a nd given to Belen for review. A M PDTTelephone Encounter - Frances Barreto - 12/12/2019 12:47 PM PDTCalled Steven Perez edical Records and requested for patient's labs that Belen ordered be faxed over. Electronica lly signed by Frances Barreto at 12/12/2019 12:48 PM PDTTelephone Encounter - Dianna Whitfield CMA - 12/12/2019 9:44 AM PDTNotified patient that we have not received all results y et. Will call her once we do. elephone Encounter - Nancy Andrews ARNP - 12/12/2019 8:04 AM PDTI did no t receive the results. Thank you Electronically signed by KAELYN Bond at 2019 8:04 AM PDTTelephone Encounter - Bernadette Rice CMA - 12/07/2019 3:34 PM PDTMaria Luz hall patients call, she states her PCP had received some of the lab results that Belen had order ed and told the patient she couldn't give her the results, but they looked worrisome. Explai li to patient that I could not give her the lab results, until Belen had a chance to review them and advise. Reviewed with the RN in office, and ok to tell the patient that Belen would review her labs next week, and that patient should not worry/stress as her results weren't w orrisome at this time. elephone Encounter - Manuel Schwartz - 12/07/2019 2:19 PM PDTPatient called our clinica and wanted to know he r lab results. Informed patient that our provider is still review info and she already gone for the day and will resume in clinic on Wednesday. Pt was concern. Routing to clinical staff. Pt phone number:[phone] signed by Manuel Schwartz at 12/07/2019 2:20 PM PDTTelephone Encounter - Frances Barreto - 12/07/2019 10:16 AM PDTPatient called in to ge t results from her labs that she got done yesterday, I advised her that we had not received those but as soon as we do I will forward to Belen and have her review them. Patient is freak ing out about some of them, she said they were uploaded to her MyChart. She wants to make napier re everything is ok. These labs are in Care Everywhere it looks like. documented in this encounter Plan of Treatment Not on filedocumented as of this encounter Visit Diagnoses Not on filedocumented in this encounter"
--- OUTSIDE RECORDS SUMMARY | ~2020-01-15 | XMS | Encounter Summary ---
Demographics + + + | Address | [address] | | | [place] [address] | + + + | Home Phone | | + + + | Preferred Language | Unknown | + + + | Marital Status | Single | + + + | Yarsani Affiliation | CAT | + + + [...] Team Providers + +------+ + | Care Community Service Coordinator Name | Role | Phone | + +------+ + | Jessica Craft | PCP | | + +------+ + Encounter Details +--------+ + + + + | Date | Type | Department | Care Team | Description | +--------+ + + + + | 05/31/ | Hospital | Registration [id number] | [address] FNP | | | 2006 | Activity | [address] | | | | | | [address] Mailcode: [id number] | | | | | | [place], [place] | | | | | | [address] | | | | | | [phone] | | | +--------+ + + + [...]
--- OUTSIDE RECORDS SUMMARY | ~2020-01-15 | XMS | Encounter Summary ---
Demographics + + + | Address | [address] | | | [place] [address] | + + + | Home Phone [...] + + + | Author | [facility] | + + + | Organization | [facility] | + + + | Address | Unknown | + + + | Phone | Unavailable | + + + Support + + +---------+ + | Name | Relationship | Address | Phone | + + +---------+ + | Mayito Shahid | ECON | Unknown | | + + +---------+ + Care Team Providers + +------+ + | Care Loom Changeover Operator Name | Role | Phone | [...] | +--------+ + + + + | 08/26/ | Telephone | Plastic and | Bronson Christine, | Other | | 2017 | | Reconstructive | ,PhD [address] | | | | | Surgery at [facility] [address] [place], [place] | | | | | [address] | [address] | | | | | Mailcode: [facility] | [phone] | | | | | [facility] | | | | | | and Healing, | | | | | | Building [address], 5th | | | | | | Floor [place], [place] | | | | | | [address] | | | | | | [phone] | | | +--------+ + + + [...]
--- OUTSIDE RECORDS SUMMARY | ~2020-01-15 | XMS | Encounter Summary ---
Demographics + + + | Address | [address] | | | [place] [address] | + + + | Home Phone [...] Author + + + | Author | [facility] | + + + | Organization | [facility] | + + + | Address | Unknown | + + + | Phone | Unavailable | + + + Support + + +---------+ + | Name | Relationship | Address | Phone | + + +---------+ + | Mayito Shahid | ECON | Unknown | | + + +---------+ + Care Team Providers + +------+ + | Care Merchant Patroller Name | Role | Phone | + +------+ + | No Pcp Per Patient | PCP | Unavailable | + +------+ + Reason for Visit +---------+ + | Reason | Comments | +---------+ + | Post Op | OP 05/26/16 L hand ulnar motor branch josé miguel wheat new | | | concerns: discuss functional issues with fingers, scar tissue | | | left palm | +---------+ + Encounter Details +--------+---------+ + + + | Date | Type | Department | Care Team | Description | +--------+---------+ + + + | 08/13/ | Office | Plastic and | Bronson Christine, | Laceration of left | | 2017 | Visit | Reconstructive | ,PhD [address] | ulnar nerve at wrist | | | | Surgery at [facility] [address] [place], [place] | and hand level, | | | | [address] | [address] | subsequent encounter | | | | Mailcode: CH5P | [phone] | (Primary Dx) | | | | [facility] | | | | | | and Healing, | | | | | | Building 1, 5th | | | | | | Floor [place], [place] | | | | | | [address] | | | | | | [phone] | | | +--------+---------+ + + + [...] + + + | Blood Pressure | 127/79 | 08/13/2016 1:20 PM | | | | | PST | | + + + + + | Pulse | 103 | 08/13/2016 1:20 PM | | | | | PST | | + + + + + | Temperature | - | - | | + + + + + | Respiratory Rate | 16 | 08/13/2016 1:20 PM | | | | | PST | | + + + + + | Oxygen Saturation | 96% | 08/13/2016 1:20 PM | | | | | PST [...] encounter Progress Notes Bronson Christine MD,PhD - 08/13/2016 1:15 PM PSTI saw and evaluated the patient on 08/13/2016 .. I agree with the findings and the plan of care as documented in the resident s note. Bronson Christine MD,PhD PLASTIC AND RECONSTRUCTIVE SURGERY AT [facility] [address] Mail Code: [place] [address] Today tinel at very distal end of palm scar Finger spread between long and small now 5/5 Froment + 2-pt normal Thumb abduction normal Impression Doing well Tinel at distal scar and interoseous animation of long finger suggest ongoing regeneration Plan Try to use hand normally F/u in late spring or early summer 17 11:27 AM Dayanara Patricio MD - 08/13/2016 1:15 PM PST Plastic Surgery Post-op Visit DOS: 05/26/16 Procedure: 1. Repair of left hand ulnar nerve deep motor branch with interposition Avance acellular ne rve allograft 2. Left Guyon's canal release 3. Use of the operating microscope S: Reyna Farmer is a 31 y.o. female returns to clinic 2.5 months s/p the above procedure. Today, patient reports that she feels her hand is worse than it was before the surgery. She feels that she has a prominent scar that is very sensitive. When she puts pressure on the palm of her hand (such as when pushing a stroller), she has significant pain and "shock like " pain that extends down the ulnar aspect of the long and radial aspect of the ring. She re ports she went to therapy once initially after her surgery but that she didn't start going a gain until this week. Thus, she has been doing scar massage for about three days at this ti me. Of note, she also reports slight ulnar deviation of the index and long fingers when she makes a fist. O: Filed Vitals: 08/13/2016 1:20 PM Weight: 61.3 kg (135 lb 1.6 oz) BP: 127/79 Pulse: 103 Resp: 16 SpO2: 96% PainSc: 0 - Zero BMI: 23.19 kg/(m^2) Gen: AAOx3, NAD L hand: Incision well healed 2 point discrimination: 5mm all fingers, including radial and ulnar aspects of long and rin g fingers Positive tinel's over palm (just distal to incision) with paresthesias extending to radial aspect of ring and ulnar aspect of long Able to make full fist and fully extend, but noted slight ulnar deviation of index and long fingers at MP joint with flexion 5/5 motor strength with finger abduction between long and small fingers A/P: 31 yo F 2.5 months s/p repair of left hand ulnar nerve motor branch with allograft -Continue home exercises and scar massage -Advised patient we will continue to monitor for nerve regeneration but that she is showing progress on her exam today -RTC 3-4 months Dayanara De La Paz MD 08/13/2016 2:05 PM documented in this encounter Plan of Treatment Not on filedocumented as of this encounter Procedures + +--------+ + + + | Procedure Name | Priori | Date/Time | Associated Diagnosis | Comments | | | ty | | | | + +--------+ + + + | ORDERS OTHER | | 08/13/2016 | | Results for this | | | | 12:00 AM | | procedure are in the | | | | PST | | results section. | + +--------+ + + + documented in this encounter Results ORDERS OTHER (08/13/2016 12:00 AM PST) + + + | Narrative | Performed At | + + + | | | + + + documented in this encounter Visit Diagnoses + + | Diagnosis | + + | Laceration of left ulnar nerve at wrist and hand level, subsequent encounter - Primary | + + documented in this encounter
--- OUTSIDE RECORDS SUMMARY | ~2020-01-15 | XMS | Encounter Summary ---
Demographics + + + | Address | [address] | | | [place] [address] | + + + | Home Phone | | + + + | Preferred Language | Unknown | + + + | Marital Status | Single | + + + | Mandaen Affiliation | [id number] | + + + | Race | Unknown | + + + | Ethnic Group | Unknown | + + + Author + + + | Author | [facility] | | | and [place] | + + + | Organization | [facility] | | | and [...] Team Providers + +------+ + | Care Coverage Specialist Name | Role | Phone | + +------+ + | Elmer Rangel MD | PCP | | + +------+ + Reason for Referral Diagnostic/Screening (Routine) +--------+--------+ + + + + | Status | Reason | Specialty | Diagnoses / | Referred By | Referred To | | | | | Procedures | Contact | Contact | +--------+--------+ + + + + | Closed | | Radiology | Diagnoses | | [facility] | | | | | Liver | Darryl, | [address] | | | | | lesion | Nancy, | Denice Galdamez, | | | | | Procedures | TUB ATTENDANT [address] | [place] | | | | | MRI Liver w | [address] | [address] | | | | | wo Contrast | [address] | Phone: | | | | | [place] [facility], | [place], | [phone] | | | | | [place], | [place] [address] | Fax: | | | | | [place] | Phone: | [phone] | | | | | | [phone] | | | | | | | Fax: | | | | | | | [phone] | | +--------+--------+ + + + + Reason for Visit + + + | Reason | Comments | + + + | Elevated Hepatic | | | Enzymes | | + + + Evaluate & Treat (Routine) + +--------+ + + + + | Status | Reason | Specialty | Diagnoses / | Referred By | Referred To | | | | | Procedures | Contact | Contact | + +--------+ + + + + | Authorized | | Gastroenterol | Diagnoses | Michael, | [facility] | | | | ogy | Abnormal | Lexie Zohra WOOD BLOCK ARTIST | Gastroenterol | | | | | results of | [address] | [address] | | | | | liver | [address] | [address] | | | | | function | [address] | [address] [place] | | | | | studies | [place], | [place], [place] | | | | | Procedures | [place] [address] | [address] | | | | | [facility] OFFICE | Phone: | Phone: | | | | | VISIT | [phone] | [phone] | | | | | | Fax: | Fax: | | | | | | [phone] | [phone] | + +--------+ + + + + Encounter Details +--------+ + + + + | Date | Type | Department | Care Team | Description | +--------+ + + + + | 12/06/ | Virtual | [facility] [place] | [facility], | Liver lesion | | 2020 | Office | GASTROENTEROLOGY | KAELYN Cruz [address] | (Primary Dx); | | | Visit | [address] | [address] | Elevated liver | | | | [address] [place], [place] | [place], [place] | enzymes | | | | [address] | [address] | | | | | [phone] | | | +--------+ + + + [...] + + + | Blood Pressure | - | - | | + + + + + | Pulse | - | - | | + + + + + | Temperature | - | - | | + + + + + | Respiratory Rate | - | - | | + + + + + | Oxygen Saturation | - | - | | + + + + + | Inhaled Oxygen | - | - | | | Concentration | | | | + + + + + | Weight | 61.2 kg (135 lb) | 12/06/2019 9:27 AM | | | | | PDT | | + + + + + | Height | - | - | | + + + + + | Body Mass Index | 23.91 | 04/15/2016 11:03 AM | | | | | PDT | | + + + + + documented in this encounter Progress Notes Nancy Andrews ARNP - 12/06/2019 11:30 AM PDTFormatting of this note might be differe nt from the original. This exam was initially conducted via a secure 256-bit AES encrypted bidirectional video se ssion. Service was provided [id number] with the patient via interactive videoconferencing Video start time 1131 Video end time 1208 Total time (in minutes) including non [id number]-vx-oxue time (reviewing records, documentation, etc..) 37 minutes You have chosen to receive care through the use of telemedicine. Telemedicine enables [facility] care providers at different locations to provide safe, effective and convenient care throu gh the use of technology. As with any health care service, there are risks associated with t he use of telemedicine, including equipment failure, poor image resolution and information s ecurity issues. Do you understand the risks and benefits of telemedicine as I have explained them to you? " Yes" Have your questions regarding telemedicine been answered? "Yes" Patient is currently at car Do you consent to the use of telemedicine in your medical care today? Yes. Last question, I need to confirm where are you physically located right now? [place], [place] Answer: Patient confirms they are located in a state where Nancy Marks ARNP i s licensed. PATIENT NAME: Reyna Farmer : 1985: AGE: 34 y.o. REFERRED BY: Lexie Michael NP PRIMARY CARE: Elmer Rangel MD Subjective: CHIEF COMPLAINT: Reyna Farmer is a 34 y.o. female referred by Elmer Rangel MD for evaluation and tr eatment of liver lesion. HISTORY OF PRESENT ILLNESS: Patient states that she had her annual blood work done. She started her annual visit. She was found to have elevated liver enzymes were elevated. This was the first elevation sh e noted. Follow up liver enzymes were again normal. She did not have any medication changes. She was taking antibiotics due to sinus infection. She does not drink alcohol. There was also some heavy menstruation. Abdominal ultrasound was abnormal. This showed evidence of a likely hemangioma. No known personal of family history of autoimmune diseases. Negative HCV test completed. Denies ascites, jaundice, hematemesis, peripheral edema, sleep changes, or confusion. MEDICAL, SURGICAL, AND PERSONAL HISTORY: Wt 61.2 kg (135 lb) | BMI 23.91 kg/m Allergies Allergen Reactions Codeine Hives Phenergan [Promethazine] Other (See Comments) Reaction: Unknown Ketorolac Anxiety and Nausea Only Lorazepam Other (See Comments) Reaction: Anxiety Metoclopramide Other (See Comments) Past Medical History: Diagnosis Date Abnormal liver function Fatigue Hemangioma of liver Menorrhagia with regular cycle Past Surgical History: Procedure Laterality Date SECTION SECTION SECTION Family History Family history unknown: Yes Social History Socioeconomic History Marital status: Single Spouse name: Not on file Number of children: Not on file Years of education: Not on file Highest education level: Not on file Occupational History Not on file Social Needs Financial resource strain: Not on file Food insecurity: Worry: Not on file Inability: Not on file Transportation needs: Medical: Not on file Non-medical: Not on file Tobacco Use Smoking status: Never Smoker Smokeless tobacco: Never Used Substance and Sexual Activity Alcohol use: Yes Drug use: Not on file Comment: Not on file Sexual activity: Not on file Comment: Not on file Lifestyle Physical activity: Days per week: Not on file Minutes per session: Not on file Stress: Not on file Relationships Social connections: Talks on phone: Not on file Gets together: Not on file Attends denominational service: Not on file Active member of club or organization: Not on file Attends meetings of clubs or organizations: Not on file Relationship status: Not on file Intimate partner violence: Fear of current or ex partner: Not on file Emotionally abused: Not on file Physically abused: Not on file Forced sexual activity: Not on file Other Topics Concern Not on file Social History Narrative Not on file Review of Systems Constitutional: Positive for fever (fever 08/2019). Negative for chills, diaphoresis, fatigu e and unexpected weight change. HENT: Negative for congestion, hearing loss, mouth sores, rhinorrhea and trouble swallowing . Eyes: Negative for redness and visual disturbance. Respiratory: Negative for cough, choking, chest tightness, shortness of breath and wheezing . Cardiovascular: Negative for chest pain, palpitations and leg swelling. Gastrointestinal: Negative for abdominal distention, abdominal pain, anal bleeding, blood i n stool, constipation, diarrhea, nausea, rectal pain and vomiting. Negative except as stated above Endocrine: Denies enlarged thyroid Genitourinary: Negative for dysuria, flank pain and frequency. Musculoskeletal: Negative for arthralgias, back pain and joint swelling. Skin: Negative for color change and rash. Neurological: Positive for numbness. Negative for seizures, syncope, weakness and headaches . Hematological: Does not bruise/bleed easily. Denies anemia or enlarged lymph glands. Psychiatric/Behavioral: Positive for dysphoric mood. The patient is nervous/anxious. Objective: Physical Exam Nursing note reviewed. Constitutional: General: She is not in acute distress. Appearance: Normal appearance. She is not ill-appearing. Comments: Complete physical exam not performed-this was a telephone visit. HENT: Head: Normocephalic and atraumatic. Pulmonary: Effort: Pulmonary effort is normal. Neurological: General: No focal deficit present. Mental Status: She is alert. Psychiatric: Attention and Perception: Attention normal. Mood and Affect: Mood normal. Speech: Speech normal. Behavior: Behavior normal. Thought Content: Thought content normal. Abstract on 11/20/2019 Component Date Value Ref Range Status Vitamin D, 25-Hydroxy, External 09/14/2019 27.3* 30 - 40 Final Folate 09/14/2019 9.1 7.0 - 31.4 ng/mL Final Vitamin B12 09/14/2019 531 213 - 816 pg/mL Final Iron, External 09/14/2019 59 25 - 156 Final LDL Cholesterol, Direct, External 09/13/2019 75 0 - 130 Final Cholesterol, Total, External 09/13/2019 134 0 - 200 mg/dl Final HDL Cholesterol, External 09/13/2019 39 35 - 85 mg/dl Final Triglycerides, External 09/13/2019 99 30 - 150 Final Chol/HDL Ratio 09/13/2019 3.4 0.0 - 5.0 Ratio Final Non HDL Chol. (LDL+VLDL) 09/13/2019 95 0 - 130 mg/dL Final VLDL Cholesterol Dagoberto 09/13/2019 19 0 - 42 mg/dL Final Creatinine, External 09/13/2019 0.74 0.44 - 1.03 Final eGFR, External 09/13/2019 >60 60 - 140 Final TSH, External 09/13/2019 0.74 0.35 - 4.94 Final Sodium, External 09/13/2019 142 136 - 145 Final Potassium, External 09/13/2019 4.0 3.5 - 4.5 Final Chloride, External 09/13/2019 107 98 - 107 Final Carbon Dioxide, External 09/13/2019 28 22 - 32 Final Calcium, External 09/13/2019 9.9 8.2 - 10.6 Final Protein, Total, External 09/13/2019 7.3 6 - 8 Final Albumin, External 09/13/2019 4.5 3.5 - 5 Final Bilirubin, Total, External 09/13/2019 0.5 0.3 - 1.2 Final ALP, External 09/13/2019 79 40 - 150 Final AST, External 09/13/2019 64* 5 - 34 Final ALT, External 09/13/2019 123* 0 - 55 Final Glucose, External 09/13/2019 95 84 - 110 Final BUN, External 09/13/2019 13 7 - 18.7 Final Anion Gap 09/13/2019 7 5 - 12 mmol/L Final Globulin 09/13/2019 2.8 2.3 - 3.5 gm/dL Final Albumin/Globulin Ratio 09/13/2019 1.6 1.10 - 1.80 Ratio Final WBC, External 09/13/2019 4.8 4.5 - 11 Final HGB, External 09/13/2019 11.25* 11.5 - 15.5 Final HCT, External 09/13/2019 34.1* 36 - 46 Final PLT, External 09/13/2019 228 150 - 450 Final Neutrophils %, External 09/13/2019 59.0 40 - 70 Final Lymphocytes %, External 09/13/2019 32.7 25 - 45 Final Monocytes %, External 09/13/2019 6.7 0 - 10 Final Eosinophils %, External 09/13/2019 0.9 0 - 3 Final Neutrophils, Absolute, External 09/13/2019 2.9 1.8 - 7.7 Final Lymphocytes, Absolute, External 09/13/2019 1.6 1 - 4.8 Final Monocytes, Absolute, External 09/13/2019 0.3 0 - 0.8 Final Eosinophils, Absolute 09/13/2019 0.0 0 - 0.45 Final Basophils, Absolute 09/13/2019 0.0 0 - 0.2 Final RBC, External 09/13/2019 4.0* 4.2 - 5.4 Final MCV, External 09/13/2019 85 80 - 100 Final RDW, External 09/13/2019 15.7* 11.5 - 15.5 Final MCH 09/13/2019 27.7 25.0 - 34.0 pg Final MCHC 09/13/2019 32.8 32.0 - 36.0 g/dL Final % Basophils 09/13/2019 0.7 0.0 - 3.0 % Final Assessment: 1. Liver lesion MRI Liver w wo Contrast Hepatitis B Core Ab, IgM Hepatitis A Ab, IgM Hepatitis B Surface Ab Hepatitis B Surface Ag Ferritin Comprehensive Metabolic Panel Ceruloplasmin Smooth Muscle Ab Mitochondrial Ab, M2 [id number]-6-Fqnouvkymsr, Total Alpha Fetoprotein, Tumor Marker Protime INR Iron and Transferrin 2. Elevated liver enzymes Hepatitis B Core Ab, IgM Hepatitis A Ab, IgM Hepatitis B Surface Ab Hepatitis B Surface Ag Ferritin Comprehensive Metabolic Panel Ceruloplasmin Smooth Muscle Ab Mitochondrial Ab, M2 Jgndn-4-Eyjxgwaqbsf, Total Alpha Fetoprotein, Tumor Marker Protime INR Iron and Transferrin Plan: Ordered labs to determine if additional liver pathology present. Ordered MRI of liver to further characterize liver lesion. Suspect benign hemangioma. Also suspect elevated liver enzymes were related to sinus infection at that time. Will follow up with results. Patient is to call with any question or concerns. Any fevers, chills, chest pain, SOB or other serious symptoms patient is to call the office or go to ER . Spent 37 minutes with over half of the time spent in discussion with the patient regarding diagnostics and possible treatment options for elevated liver enzymes and liver lesion. CC: Elmer Rangel MD This note was dictated using voice recognition software. Please contact me if there are an y questions regarding its content. Electronically signed by KAELYN Bond at 11/17 2:01 PM PDTdocumented in this encounter Plan of Treatment + +------+--------+ + + | Name | Type | Priori | Associated Diagnoses | Order Schedule | | | | ty | | | + +------+--------+ + + | Hepatitis B Core Ab, | Lab | Routin | Liver lesion | Ordered: 12/06/2019 | | IgM | | e | Elevated liver | | | | | | enzymes | | + +------+--------+ + + | Hepatitis A Ab, IgM | Lab | Routin | Liver lesion | Ordered: 12/06/2019 | | | | e | Elevated liver | | | | | | enzymes | | + +------+--------+ + + | Hepatitis B Surface | Lab | Routin | Liver lesion | Ordered: 12/06/2019 | | Ab | | e | Elevated liver | | | | | | enzymes | | + +------+--------+ + + | Hepatitis B Surface | Lab | Routin | Liver lesion | Ordered: 12/06/2019 | | Ag | | e | Elevated liver | | | | | | enzymes | | + +------+--------+ + + | Ferritin | Lab | Routin | Liver lesion | Ordered: 12/06/2019 | | | | e | Elevated liver | | | | | | enzymes | | + +------+--------+ + + | Comprehensive | Lab | Routin | Liver lesion | Ordered: 12/06/2019 | | Metabolic Panel | | e | Elevated liver | | | | | | enzymes | | + +------+--------+ + + | Ceruloplasmin | Lab | Routin | Liver lesion | Ordered: 12/06/2019 | | | | e | Elevated liver | | | | | | enzymes | | + +------+--------+ + + | Smooth Muscle Ab | Lab | Routin | Liver lesion | Ordered: 12/06/2019 | | | | e | Elevated liver | | | | | | enzymes | | + +------+--------+ + + | Mitochondrial Ab, M2 | Lab | Routin | Liver lesion | Ordered: 12/06/2019 | | | | e | Elevated liver | | | | | | enzymes | | + +------+--------+ + + | Zlqxw-9-Aswnkztsxpe, | Lab | Routin | Liver lesion | Ordered: 12/06/2019 | | Total | | e | Elevated liver | | | | | | enzymes | | + +------+--------+ + + | Alpha Fetoprotein, | Lab | Routin | Liver lesion | Ordered: 12/06/2019 | | Tumor Marker | | e | Elevated liver | | | | | | enzymes | | + +------+--------+ + + | Protime INR | Lab | Routin | Liver lesion | Ordered: 12/06/2019 | | | | e | Elevated liver | | | | | | enzymes | | + +------+--------+ + + | Iron and Transferrin | Lab | Routin | Liver lesion | Ordered: 12/06/2019 | | | | e | Elevated liver | | | | | | enzymes | | + +------+--------+ + + documented as of this encounter Results MRI Liver w wo Contrast (12/28/2019 1:46 PM PDT) + + | Specimen | + + | | + + + + + | Impressions | Performed At | + + + | 9 mm T2 hyperintense lesion within the posterior aspect of hepatic | [facility] | | segment VII demonstrates questionable subtle peripheral nodular | | | enhancement on arterial phase and delayed phase imaging. Most | | | compatible with a benign hemangioma. Dictated and Signed by: Valente | | | MD Nieves Electronically signed: 12/28/2019 4:06 PM | | + + + + + + | Narrative | Performed At | + + + | MRI LIVER W WO CONTRAST 12/28/2019 12:53 PM HISTORY: liver lesion | [facility] | | seen on CT. COMPARISON: 09/19/2019 PROTOCOL: Coronal T2, axial | | | T2, axial T2 fat sat, axial T1 in phase imaging, axial T1 out of | | | phase imaging, axial diffusion weighted, axial T1, axial T1 | | | postcontrast, coronal T1 postcontrast. Postcontrast images were | | | acquired in the arterial, portal venous, delayed, and hepatobiliary | | | phases. The patient was administered 6.5 cc Eovist. FINDINGS: | | | Chest base is normal. 9 mm T2 hyperintense lesion within the | | | posterior aspect of hepatic segment VII demonstrates questionable | | | subtle peripheral nodular enhancement on arterial phase and delayed | | | phase imaging. Most compatible with a benign hemangioma. No other | | | suspicious lesion identified. Otherwise normal appearance of the | | | liver. The gallbladder is normal. Biliary ducts are unremarkable. | | | The spleen is unremarkable. The pancreas demonstrates normal | | | parenchyma and a normal pancreatic duct. Adrenal glands are normal. | | | The right kidney and visualized ureter are normal. The left | | | kidney and visualized ureter are normal. The stomach is normal. | | | Imaged small bowel and colon demonstrate no acute findings. Aorta | | | is nonaneurysmal. IVC is unremarkable. No enlarged lymph nodes are | | | visualized within the omentum or retroperitoneum. There is no | | | evidence for ascites or free air. Body wall soft tissue structures | | | are normal. There are no acute osseous abnormalities. | | + + + + + | Procedure Note | + + | Jake, Rad Results In - 12/28/2019 4:10 PM PDT MRI LIVER W WO CONTRAST 12/28/2019 12:53 | | PMHISTORY: liver lesion seen on CT.COMPARISON: 09/19/2019PROTOCOL: Coronal T2, axial T2, | | axial T2 fat sat, axial T1 in phase imaging,axial T1 out of phase imaging, axial | | diffusion weighted, axial T1, axial T3yokgjejkiiae, coronal T1 postcontrast. | | Postcontrast images were acquired in thearterial, portal venous, delayed, and | | hepatobiliary phases. The patient wasadministered 6.5 cc Eovist.FINDINGS:Chest base is | | normal.9 mm T2 hyperintense lesion within the posterior aspect of hepatic segment | | VIIdemonstrates questionable subtle peripheral nodular enhancement on arterialphase and | | delayed phase imaging. Most compatible with a benign hemangioma. Noother suspicious | | lesion identified. Otherwise normal appearance of the liver.The gallbladder is normal. | | Biliary ducts are unremarkable.The spleen is unremarkable. The pancreas demonstrates | | normal parenchyma and anormal pancreatic duct. Adrenal glands are normal.The right | | kidney and visualized ureter are normal.The left kidney and visualized ureter are | | normal.The stomach is normal. Imaged small bowel and colon demonstrate no | | acutefindings.Aorta is nonaneurysmal. IVC is unremarkable. No enlarged lymph nodes | | arevisualized within the omentum or retroperitoneum.There is no evidence for ascites or | | free air.Body wall soft tissue structures are normal. There are no acute | | osseousabnormalities.IMPRESSION: 9 mm T2 hyperintense lesion within the posterior aspect | | of hepatic segment VIIdemonstrates questionable subtle peripheral nodular enhancement | | on arterialphase and delayed phase imaging. Most compatible with a benign hemangioma. | | Dictated and Signed by: Valente Pickett MD Electronically signed: 12/28/2019 4:06 PM | |The spleen is unremarkable. The pancreas demonstrates normal parenchyma and a | |normal pancreatic duct. Adrenal glands are normal. | | | |The right kidney and visualized ureter are normal. | | | |The left kidney and visualized ureter are normal. | | | |The stomach is normal. Imaged small bowel and colon demonstrate no acute | |findings. | | | |Aorta is nonaneurysmal. IVC is unremarkable. No enlarged lymph nodes are | |visualized within the omentum or retroperitoneum. | | | |There is no evidence for ascites or free air. | | | |Body wall soft tissue structures are normal. There are no acute osseous | |abnormalities. | | | |IMPRESSION: | |9 mm T2 hyperintense lesion within the posterior aspect of hepatic segment VII | |demonstrates questionable subtle peripheral nodular enhancement on arterial | |phase and delayed phase imaging. Most compatible with a benign hemangioma. | | | |Dictated and Signed by: Valente Pickett MD | | Electronically signed: 12/28/2019 4:06 PM | + + + +---------+ + + | Performing | Address | City/State/Zipcode | Phone Number | | Organization | | | | + +---------+ + + | [facility] | | | | + +---------+ + + documented in this encounter Visit Diagnoses + + | Diagnosis | + + | Liver lesion - Primary Other specified disorders of liver | + + | Elevated liver enzymes Nonspecific elevation of levels of transaminase or lactic acid | | dehydrogenase (LDH) | + + documented in this encounter
--- OUTSIDE RECORDS SUMMARY | ~2020-01-15 | XMS | Encounter Summary ---
Demographics + + + | Address | [address] | | | [place] [address] | + + + | Home Phone [...] + | Author | [facility] | | | and [place] | + + + | Organization | [facility] | | | and [...] Team Providers + +------+ + | Care Flatbed Stitcher Name | Role | Phone | + +------+ + PCP | Unavailable | + +------+ + Encounter Details +--------+ + + + + | Date | Type | Department | Care Team | Description | +--------+ + + + + | 04/26/ | Emergency | [facility] | Jason Edouard, | | | 2014 | | MEDICAL [facility]ENTER | MD Dwayne OSULLIVAN | | | | | EMERGENCY CENTER | [place] [address] | | | | | [address] | [phone] | | | | | [place], [place] | | | | | | [address] | | | | | | [phone] | | | +--------+ + + + [...]
--- OUTSIDE RECORDS SUMMARY | ~2020-01-15 | XMS | Encounter Summary ---
Demographics + + + | Address | [address] | | | [place] [address] | + + + | Home Phone | | + + + | Preferred Language | Unknown | + + + | Marital Status | Single | + + + | Hoahaoism Affiliation | CAT | + + + | Race | White | + + + | Ethnic Group | Not or | + + + Author + + + | Author | [facility] | + + + | Organization | [facility] | + + + | Address | Unknown | + + + | Phone | Unavailable | + + + Support + + +---------+ + | Name | Relationship | Address | Phone | + + +---------+ + | Mayito Shahid | ECON | Unknown | | + + +---------+ + Care Team Providers + +------+ + | Care Freight Representative Name | Role | Phone | [...] | 2015 | | Reconstructive | ,PhD [address] | | | | | Surgery at [facility] [address] [place], [place] | | | | | [address] | [address] | | | | | Mailcode: [facility] | [phone] | | | | | [facility] | | | | | | and Healing, | | | | | | [address]th | | | | | | Floor [place], [place] | | | | | | [address] | | | | | | [phone] | | | +--------+--------+ + + + [...]
--- OUTSIDE RECORDS SUMMARY | ~2020-01-15 | XMS | Encounter Summary ---
Demographics + + + | Address | [address] | | | [place] [address] | + + + | Home Phone | | + + + | Preferred Language | Unknown | + + + | Marital Status | Single | + + + | Spiritism Affiliation | CAT | + + + | Race | White | + + + | Ethnic Group | Not or | + + + Author + + + | Author | [facility] | + + + | Organization | [facility] | + + + | Address | Unknown | + + + | Phone | Unavailable | + + + Support + + +---------+ + | Name | Relationship | Address | Phone | + + +---------+ + | Mayito Shahid | ECON | Unknown | | + + +---------+ + Care Team Providers + +------+ + | Care Plastics Production Machine Operator Name | Role | Phone [...] | | | | | Surgery at [facility] [address] [place], [place] | | | | | [address] | [address] | | | | | Mailcode: [facility] | [phone] | | | | | [facility] | | | | | | and Healing, | | | | | | [address]th | | | | | | Floor [place], [place] | | | | | | [address] | | | | | | [phone] | | | +--------+ + + + [...]
--- OUTSIDE RECORDS SUMMARY | ~2020-01-15 | XMS | Encounter Summary ---
Demographics + + + | Address | [address] | | | [place] [address] | + + + | Home Phone | | + + + | Preferred Language | Unknown | + + + | Marital Status | Single | + + + | Lutheran Affiliation | CAT | + + + [...] Team Providers + +------+ + | Care Certified Respiratory Therapist Name | Role | Phone | + +------+ + | No Pcp Per Patient | PCP | Unavailable | + +------+ + Reason for Visit + + + | Reason | Comments | + + + | Pre-op evaluation | | + + + Encounter Details +--------+ + + + + | Date | Type | Department | Care Team | Description | +--------+ + + + + | 05/14/ | Telephone-S | Preoperative | | Pre-op evaluation | | 2015 | julien | Medicine Clinic at | | | | | | [facility] 4th Floor Day | | | | | | Stay [address] | | | | | | [address] | | | | | | Mailcode: [id number] | | | | | | [facility] | | | | | | [address] [place], [place] | | | | | | [address] | | | | | | [phone] | | | +--------+ + + + [...] + + documented as of this encounter Patient Instructions Patient Instructions Jacqueline Edwards RN - 05/14/2016 2:10 PM PDTFormatting of this note m ight be different from the original. PREOPERATIVE INSTRUCTIONS Do not eat or drink anything after midnight the night before surgery. TAKE the following medications with a sip of water on the morning of surgery: NONE Do NOT take the following medications on the morning of surgery: MULTIPLE VITAMINS ORAL Unless Otherwise Directed by your Surgeon Do not take any Aspirin, vitamin E or non-ster oidal anti-inflammatory (NSAIDs i.e. Advil, Aleve, Ibuprofen) or herbal supplements seven da ys prior to your surgery. These drugs may interfere with normal blood clotting and may cause excessive bleeding and bruising during or after the surgery. If you are taking Coumadin (warfarin), Plavix or any other blood thinners please let you r surgical team know as medication changes will be necessary. If you need a pain medication for general purposes, use Tylenol as directed. If you are in doubt about any medications that you are taking, please contact our office . Important Guidelines Do not smoke, drink alcohol or use recreational drugs for 24 hours before your surgery Do not eat any hard candy or chew gum after midnight the night before your surgery. Watch for any change in your health condition. Let your surgeon know right away if you do not feel well. Do not wear makeup, perfume, lotions or powder. Remove any nail mauritanian from at least one fingernail. Do not wear any jewelry to the hospital. Wear loose, comfortable clothing. Bring the case and solution for your contact lenses or wear your glasses. Leave all your valuables at home. Allow enough travel time so you re not late for your check in for surgery. Take a bath or shower and remember to shampoo your hair using your usual hair product be fore your arrival at the hospital. Please remember to brush your teeth the night before and the morning of your procedure. Surgery Check in Locations Day Stay Unit [facility], fourth floor Room 451 [place] [facility] 4th Floor Surgery Check in Time: Someone from your surgeon's office or [facility] will provide you with information regarding your check in time. If you have any questions about this, pl ease contact your surgeon's office. Going Home Your surgical team will decide when you are medically ready to go home. If you are released to go home on the same day as your procedure/surgery please note the following: You will not be able to drive. You will be required to have a competent adult drive you or accompany you by taxi or pub lic transportation on the day of discharge. It is also required that you have a competent adult assist you and look after you on the first night after you have undergone regional blocks (72 hours for patients going home with regional block pump), deep sedation, and/or general anesthesia. If you have questions or concerns after you go home, call your doctor s office. If it is after office hours, call the [facility] towel rolling machine operator at [phone] and ask them to page your doc tor. documented in this encounter Plan of Treatment Not on filedocumented as of this encounter Visit Diagnoses Not on filedocumented in this encounter"
--- OUTSIDE RECORDS SUMMARY | ~2020-01-15 | XMS | Encounter Summary ---
Demographics + + + | Address | [address] | | | [place] [address] | + + + | Home Phone | | + + + | Preferred Language | Unknown | + + + | Marital Status | Single | + + + | Restoration Affiliation | CAT | + + + | Race | White | + + + | Ethnic Group | Not or | + + + Author + + + | Author | [facility] | + + + | Organization | [facility] | + + + | Address | Unknown | + + + | Phone | Unavailable | + + + Support + + +---------+ + | Name | Relationship | Address | Phone | + + +---------+ + | Mayito Shahid | ECON | Unknown | | + + +---------+ + Care Team Providers + +------+ + | Care Parts Fabricator Name | Role | Phone | + [...] | 2016 | | Reconstructive | ,PhD [address] | Complications | | | | Surgery at [facility] [address] | [place], [place] | | | | | [address] | [address] | | | | | Mailcode: [facility] | [phone] | | | | | [facility] | | | | | | and [place], | | | | | | [facility] | | | | | | [place], [place] | | | | | | [address] | | | | | | [phone] | | | +--------+ + + + [...]
--- OUTSIDE RECORDS SUMMARY | ~2020-01-15 | XMS | Encounter Summary ---
Demographics + + + | Address | [address] | | | [place] [address] | + + + | Home Phone | | + + + | Preferred Language | Unknown | + + + | Marital Status | Single | + + + | Christian Affiliation | 1041 | + + + | Race | Unknown | + + + | Ethnic Group | Unknown | + + + Author + + + | Author | [facility] | | | and Quentinana | + + + | Organization | [facility] | | | [...] Team Providers + +------+ + | Care Manager Cardiac Cath Name | Role | Phone | + [...] | Liver | Darryl, | [address] | | | | | lesion | Nancy, | Denice Galdamez, | | | | | Procedures | BRICK AND TILE MAKING MACHINE OPERATOR [address] | [place] | | | | | MRI Liver w | [address] | [address] | | | | | wo Contrast | [address] | Phone: | | | | | [place] [facility], | [place], | [phone] | | | | | [place], | [place] [address] | Fax: | | | | | [place] | Phone: | [phone] | | | | | | [phone] | | | | | | | Fax: | | | | | | | [phone] | | +--------+--------+ + + + + Reason for Visit Diagnostic/Screening (Routine) +--------+--------+ + + + + | Status | Reason | Specialty | Diagnoses / | Referred By | Referred To | | | | | Procedures | Contact | Contact | +--------+--------+ + + + + | Closed | | Radiology | Diagnoses | | [facility] | | | | | Liver | [place], | [address] | | | | | lesion | Nancy, | [place], | | | | | Procedures | BRICK AND TILE MAKING MACHINE OPERATOR [address] | [place] | | | | | MRI Liver w | [address] | [address] | | | | | wo Contrast | [address] | Phone: | | | | | [place] [facility], | [place], | [phone] | | | | | [place], | [place] [address] | Fax: | | | | | [place] | Phone: | [phone] | | | | | | [phone] | | | | | | | Fax: | | | | | | | [phone] | | +--------+--------+ + + + + Encounter Details +--------+ + + + + | Date | Type | Department | Care Team | Description | +--------+ + + + + | 12/27/ | Hospital | [facility] | [facility], | Liver lesion | | 2020 | Encounter | MED CTR MRI [address] | KAELYN [address] | | | | | [address] [place], | [address] | | | | | [place] [address] | [place], [place] | | | | | [phone] | [address] | | | | | | | [...] + + documented as of this encounter Medications at Time of Discharge + + + +---------+--------+ + | Medication | Sig | Dispensed | Refills | Start | End Date | | | | | | Date | | + + + +---------+--------+ + | 27-0.8 mg | Take 1 tablet by | | 0 | | | | multivitamin tablet | mouth Daily. | | | | | + + + +---------+--------+ + documented as of this encounter Plan of Treatment Not on filedocumented as of this encounter Procedures + +--------+ + + + | Procedure Name | Priori | Date/Time | Associated Diagnosis | Comments | | | ty | | | | + +--------+ + + + | MRI LIVER W WO | Routin | 12/28/2019 | Liver lesion | Results for this | | CONTRAST | e | 1:46 PM | | procedure are in the | | | | PDT | | results section. | + +--------+ + + + documented in this encounter Results MRI Liver w wo [...] | | diffusion weighted, axial T1, axial [id number], coronal T1 postcontrast. | | Postcontrast images [...] Diagnosis | + + | Liver lesion Other specified disorders of liver | + + documented in this encounter Administered Medications + +--------+ +---------+------+------+ | Medication Order | MAR | Action | Dose | Rate | Site | | | Action | Date | | | | + +--------+ +---------+------+------+ | gadobutrol (GADAVIST) injection | Given | 12/28/19 | 6.5 mLs | | | | 6.5 mL 6.5 mL, Intravenous, | | 20 1:44 | | | | | ONCE PRN, Other, Starting Maryjo | | PM PDT | | | | | 12/28/19 at 1343, For 1 dose, MRI | | | | | | + +--------+ +---------+------+------+ +---+---+ | | | +---+---+ documented in this encounter"
--- OUTSIDE RECORDS SUMMARY | ~2020-01-15 | XMS | Clinical Summary ---
Demographics + + + | Address | [address] | | | [place] [address] | + + + | Home Phone | | + + + | Preferred Language | Unknown | + + + | Marital Status | Single | + + + | Tenriism Affiliation | CAT | + + + [...] Team Providers + +------+ + | Care Shrimp Picker Name | Role | Phone | + +------+ + | Jessica Craft | PCP | | + +------+ + Source Comments BRIDGER is fully live on both EpicCare Ambulatory and EpicCare InPatient.[facility] Allergies + + + + + + [...] | 2017 | | | ,PhD at [facility] | | | | | | /[id number] | | LOC | | | | | | [id number] | | | | | | | [...] | | | | /[id number] | | [id number]: Qty: 1 on | | | | | | | | 05/26/2016 by Bronson Christine, | | | | | | | | MDPhD at [facility] | | | | [...] | + +--------+ +--------+ + +--------+ | PRIVATE DUTY AIDE MEDICAID | PRIVATE DUTY AIDE | [id number] | | | | Medica | | | EASTER | | 017-Pr | | | id | | | [place] | | esent | | | | + +--------+ +--------+ + +--------+ | MODA | MODA | xxxxxxxxx | 08/19/19 | [phone] | [address] | PPO | | | [place] | | 18-Pre | 4 | [address] | | | | [place] | | sent | | [place], | | | | | | | | [place] [address] | | + +--------+ +--------+ + +--------+ [...] | 1984 | [phone] | [place] [address] | | | carlene | | | 2 (Home) | | + +--------+ +--------+ + + | Reyna Farmer | Vision | Self | [birth year] | [address] | | | | | 1984 | [phone] | [place] [address] | | | | | | 2 (Home) | | + +--------+ +--------+ + +
--- OUTSIDE RECORDS SUMMARY | ~2020-01-15 | XMS | Encounter Summary ---
Demographics + + + | Address | [address] | | | [place] [address] | + + + | Home Phone | | + + + | Preferred Language | Unknown | + + + | Marital Status | Single | + + + | Christian Affiliation | CAT | + + + | Race | White | + + + | Ethnic Group | Not or | + + + Author + + + | Author | [facility] | + + + | Organization | [facility] | + + + | Address | Unknown | + + + | Phone | Unavailable | + + + Support + + +---------+ + | Name | Relationship | Address | Phone | + + +---------+ + | Mayito Shahid | ECON | Unknown | | + + +---------+ + Care Team Providers + +------+ + | Care Lining Setter Name | Role | Phone | + [...] | +--------+ + + + + | 08/17/ | Telephone | Plastic and | Bronson Christine, | Other | | 2017 | | Reconstructive | ,PhD [address] | | | | | Surgery at [facility] [address] [place], [place] | | | | | [address] | [address] | | | | | Mailcode: [facility] | [phone] | | | | | [facility] | | | | | | and Healing, | | | | | | Building 1, 5th | | | | | | Floor [place], [place] | | | | | | [address] | | | | | | [phone] | | | +--------+ + + + [...]
--- OUTSIDE RECORDS SUMMARY | ~2020-01-15 | XMS | Encounter Summary ---
Demographics + + + | Address | [address] | | | [place] [address] | + + + | Home Phone [...] Author + + + | Author | [facility] | + + + | Organization | [facility] | + + + | Address | Unknown | + + + | Phone | Unavailable | + + + Support + + +---------+ + | Name | Relationship | Address | Phone | + + +---------+ + | Mayito Shahid | ECON | Unknown | | + + +---------+ + Care Team Providers + +------+ + | Care Double End Tenoner Operator Name | Role | Phone | + +------+ + | No Pcp Per Patient | PCP | Unavailable | + +------+ + Reason for Visit +---------+ + | Reason | Comments | +---------+ + | Post Op | left hand ulnar nerve motor branch reconstruction will allograft | | | vs. possible sural nerve autograft : concerns : numbness | +---------+ + Global Period - Transplant (Routine) +--------+--------+ + + + + | Status | Reason | Specialty | Diagnoses / | Referred By | Referred To | | | | | Procedures | Contact | Contact | +--------+--------+ + + + + | Closed | | Plastic | Diagnoses | Ana Cristina, | [place], | | | | Surgery | Laceration | Dayanara Perez MD | MD Bronson,PhD | | | | | of left | [address] | [address] | | | | | ulnar nerve | [place]do | [place] | | | | | at wrist and | Lydia Silva | [place], [place] | | | | | hand level, | [place], [place] | [address] | | | | | initial | [address] | Phone: | | | | | encounter | | [phone] | | | | | Procedures | | Fax: | | | | | [place] [facility] | | [phone] | | | | | HAND/FOOT | | | | | | | NERVE,ULNAR | | | | | | | MOTOR | | | +--------+--------+ + + + + Encounter Details +--------+---------+ + + + | Date | Type | Department | Care Team | Description | +--------+---------+ + + + | 06/08/ | Office | Plastic and | ResidentCharlene | Ulnar nerve | | 2016 | Visit | Reconstructive | [address] | laceration, left, | | | | Surgery at [facility] [address] | [place] [address] | subsequent encounter | | | | [address] | | (Primary Dx) | | | | Mailcode: CH5P | | | | | | [facility] | | | | | | and Healing, | | | | | | Building 1, 5th | | | | | | Floor [place], [place] | | | | | | [address] | | | | | | [phone] | | | +--------+---------+ + + + [...] + + + | Blood Pressure | 114/80 | 06/08/2016 11:46 AM | | | | | PST | | + + + + + | Pulse | 102 | 06/08/2016 11:46 AM | | | | | PST | | + + + + + | Temperature | - | - | | + + + + + | Respiratory Rate | 16 | 06/08/2016 11:46 AM | | | | | PST | | + + + + + | Oxygen Saturation | 100% | 06/08/2016 11:46 AM | | | | | PST | | + + + + + | Inhaled Oxygen | - | - | | | Concentration | | | | + + + + + | Weight | 57.2 kg (126 lb) | 06/08/2016 11:46 AM | | | | | PST | | + + + + + | Height | 162.6 cm (5' 4") | 06/08/2016 11:46 AM | | | | | PST | | + + + + + | Body Mass Index | 21.63 | 06/08/2016 11:46 AM | | | | | PST | | + + + + + documented in this encounter Progress Notes Shanique Jerome - 06/08/2016 11:15 AM PSTFormatting of this note might be different from t he original. Plastic Surgery Clinic Note Author: Shanique Jerome MD Attending Physician: Pls Support General Pls Resident, 06/08/2016 Patient ID: Reyna Farmer is a 30 y.o. female with a history of laceration of the ulnar rogelio r branch s/p repair with Avance nerve graft on 05/26/16. Subjective: Today she is very tearful. She is worried her hand function will be worse than what she had before surgery. She complains of numbness and tingling of all of her fingers. No past medical history on file. Objective: Filed Vitals: 06/08/2016 11:46 AM Height: 1.626 m (5' 4") Weight: 57.2 kg (126 lb) BP: 114/80 Pulse: 102 Resp: 16 SpO2: 100% BMI: 21.63 kg/(m^2) Physical Exam: General: alert, interactive, pleasant HEENT: PERRL, EOMI, no scleral icterus Resp: breathing unlabored Left hand incision c/d/i 2 PD 5 mm in all fingers Minimal swelling Medications: Current Outpatient Prescriptions: LORazepam (ATIVAN) 0.5 mg oral tablet, Take 1 tablet by m outh every four hours as needed for anxiety., Disp: 15 tablet, Rfl: 0 MULTIVITAMIN (MULTIPLE VITAMINS ORAL), Take by mouth once daily., Disp: , Rfl: oxyCODONE, immediate release, 5 mg oral tablet, Take 1-2 tablets by mouth every four hours as needed., Disp: 70 tablet, Rfl: 0 Assessment and Plan: Reyna Farmer is a 30 y.o. Female ~ 2 weeks s/p repair of left hand uln ar nerve deep motor branch with interposition Avance acellular nerve allograft. Doing well. -Hand OT for new splint, wear for 1.5 more weeks -Sutures removed today RTC with Dr. Christine in 1.5 weeks documented in this encou nter Plan of Treatment Not on filedocumented as of this encounter Visit Diagnoses + + | Diagnosis | + + | Ulnar nerve laceration, left, subsequent encounter - Primary | + + documented in this encounter
--- OUTSIDE RECORDS SUMMARY | ~2020-01-15 | XMS | Encounter Summary ---
Demographics + + + | Address | [address] | | | [place] [address] | + + + | Home Phone | | + + + | Preferred Language | Unknown | + + + | Marital Status | Single | + + + | Voodoo Affiliation | CAT | + + + | Race | White | + + + | Ethnic Group | Not or | + + + Author + + + | Author | [facility] | + + + | Organization | [facility] | + + + | Address | Unknown | + + + | Phone | Unavailable | + + + Support + + +---------+ + | Name | Relationship | Address | Phone | + + +---------+ + | Mayito Shahid | ECON | Unknown | | + + +---------+ + Care Team Providers + +------+ + | Care Software Qa Manager Name | Role | Phone | [...] | | | at wrist and | [facility] [place] | [facility] | | | | | hand level, | [address] | for Health | | | | | subsequent | Phone: | and Healing, | | | | | encounter | [phone] | Building 1, | | | | | Procedures | Fax: | 1St Floor | | | | | OCC HAND | [phone] | [facility] [place] | | | | | THERAPY | | [address] | | | | | REFERRAL IN | | Phone: | | | | | [facility] | | [phone] | | | | | | | Fax: | | | | | | | [phone] | +--------+--------+ + + + + Reason [...] | 2016 | | Reconstructive | ,PhD [address] | Complications | | | | Surgery at [facility] [address] | [place], [place] | | | | | [address] | [address] | | | | | Mailcode: [facility] | [phone] | | | | | [facility] | | | | | | and [place], | | | | | | [facility] | | | | | | [place], [place] | | | | | | [address] | | | | | | [phone] | | | +--------+ + + + [...]
--- OUTSIDE RECORDS SUMMARY | ~2020-01-15 | XMS | Encounter Summary ---
Demographics + + + | Address | [address] | | | [place] [address] | + + + | Home Phone [...] Author + + + | Author | [facility] | + + + | Organization | [facility] | + + + | Address | Unknown | + + + | Phone | Unavailable | + + + Support + + +---------+ + | Name | Relationship | Address | Phone | + + +---------+ + | Mayito Shahid | ECON | Unknown | | + + +---------+ + Care Team Providers + +------+ + | Care Chip Bin Conveyor Tender Name | Role | Phone | + [...] | | | | | | [address] [place], [place] | | | | | | [address] | | | | | | [phone] | | | +--------+ + + + [...] perfume, lotions or powder. Remove any nail bhutanese from at least one fingernail. Do not [...] Surgery Check in Locations Day Stay Unit [facility], fourth floor Room 451 [place] [facility] 4th Floor Surgery Check in Time: Someone from your surgeon's office or [facility] will provide you with information regarding your [...] it is after office hours, call the [facility] baker operator automatic at [phone] and ask them to page your doc tor. documented in this encounter Plan of Treatment Not on filedocumented as of this encounter Visit Diagnoses Not on filedocumented in this encounter"
--- OUTSIDE RECORDS SUMMARY | ~2020-01-15 | XMS | Encounter Summary ---
Demographics + + + | Address | [address] | | | [place] [address] | + + + | Home Phone | | + + + | Preferred Language | Unknown | + + + | Marital Status | Single | + + + | Methodist Affiliation | CAT | + + + [...] Team Providers + +------+ + | Care Bible Worker Name | Role | Phone | + +------+ + PCP | Unavailable | + +------+ + Encounter Details +--------+ + + + + | Date | Type | Department | Care Team | Description | +--------+ + + + + | 04/16/ | ED Progress | UNKNOWN DEPARTMENT | Report, Emergency | ED Progress Note | | 2006 | | [address] [facility] | Services | | | | Note-Transc | [address] | | | | | [place] | [place], [place] | | | | | | [address] | | | +--------+ + + + [...]
--- OUTSIDE RECORDS SUMMARY | ~2020-01-15 | XMS | Encounter Summary ---
Demographics + + + | Address | [address] | | | [place] [address] | + + + | Home Phone [...] + + + | Author | [facility] | + + + | Organization | [facility] | + + + | Address | Unknown | + + + | Phone | Unavailable | + + + Support + + +---------+ + | Name | Relationship | Address | Phone | + + +---------+ + | Mayito Shahid | ECON | Unknown | | + + +---------+ + Care Team Providers + +------+ + | Care Set Illustrator Name | Role | Phone | + [...] | | | | [address] [place], [place] | | | | | [facility] | [address] | | | | | (MNP/[facility]) | [phone] | | | | | [place], [place] | | | | | | [address] | | | | | | [phone] | | | +--------+ + + + [...] to 4:[address] Bronson Christine at [phone]. After hours, weekends and holidays, call the Hospital Chief Power Dispatcher at [phone] and asked to have your doctor paged [...] + | [facility] | [address] | [place], [place] | | | [place] [facility] | [address] | [address] | | | TESTS | | | [...]
--- OUTSIDE RECORDS SUMMARY | ~2020-01-15 | XMS | Encounter Summary ---
Demographics + + + | Address | [address] | | | [place] [address] | + + + | Home Phone | | + + + | Preferred Language | Unknown | + + + | Marital Status | Single | + + + | Alevism Affiliation | 1041 | + + + | Race | Unknown | + + + | Ethnic Group | Unknown | + + + Author + + + | Author | [facility] | | | and [place]entin[place] | + + + | Organization | [facility] | | | and [...] Team Providers + +------+ + | Care Curb Machine Operator Name | Role | Phone | + +------+ + | Elmer Rangel MD | PCP | | + +------+ + Reason for Visit +---------+--------+ + | Reason | Onset | Comments | | | Date | | +---------+--------+ + | Results | 12/31/ | | | | 2020 | | +---------+--------+ + Encounter Details +--------+ + + + + | Date | Type | Department | Care Team | Description | +--------+ + + + + | 12/31/ | Telephone | [place] | [facility], | Results | | 2019 | | GASTROENTEROLOGY | Nancy KAELYN [address] | | | | | [address] | [address] | | | | | [address] [place], [place] | [place], [place] | | | | | [address] | [address] | | | | | [phone] | | | +--------+ + + + [...] Telephone Encounter - Mary Whitfield CMA - 01/02/2020 11:32 AM PDTPatient called back for results. Told her results of MRI. Will put her in recalls for one year For ultrasound t o check on liver lesion. elephone Encounter - Mary Whitfield CMA - 01/02/2020 8:34 AM PDTLeft message fo r patient to call back for results.Electronically signed by Mary Whitfield CMA at 2019 8:34 AM PDTTelephone Encounter - Saleem Chang MD - 01/02/2020 8:27 AM PDTIt l ooked like a benign hemangioma. No cancer. Good news elephone Encounter - Manuel Schwartz - 01/01/2020 3:57 PM PDTName of Caller: Reyna Name of Patient: Reyna Reason for call: Patient called and was upset that nobody gave her a call regarding her MRI results. Patient wanted to make a follow up but her authorization for her [employer] insurance sh ow's Dr. Niño, who is no longer in clinic. Informed her that she will need to contact her o ffice and request the authorization for a provider who practicing at our GI clinic. 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 Informed her that we have patient's prompt this, but if her referring provider has any ques tions to contact me, since it's just a small change, but will need that change to get author ization. Patient understands. Routing to clinical staff to call pt Faxing results to referring provider Provider/Nurse: [facility] Call back number: [phone] documented in this encou nter Plan of Treatment Not on filedocumented as of this encounter Visit Diagnoses Not on filedocumented in this encounter"
--- OUTSIDE RECORDS SUMMARY | ~2020-01-15 | XMS | Encounter Summary ---
Demographics + + + | Address | [address] | | | [place] [address] | + + + | Home Phone | | + + + | Preferred Language | Unknown | + + + | Marital Status | Single | + + + | Presybeterian Affiliation | CAT | + + + [...] Team Providers + +------+ + | Care Stock Parts Fabricator Name | Role | Phone [...] wrist | | | | Surgery at [facility] [address] | [address] [place], [place] | and hand level, | | | | [address] | [address] | subsequent encounter | | | | Mailcode: CH5P | [phone] | (Primary Dx) | | | | [facility] | | | | | | and Healing, | | | | | | Building [address], [address]th | | | | | | Floor [place], [place] | | | | | | [address] | | | | | | [phone] | | | +--------+---------+ + + + [...] Christine MD,PhD PLASTIC AND RECONSTRUCTIVE SURGERY AT [facility] [address] Mail Code: [place] [address] Today tinel at very distal [...]
--- OUTSIDE RECORDS SUMMARY | ~2020-01-15 | XMS | Encounter Summary ---
Demographics + + + | Address | [address] | | | [place] [address] | + + + | Home Phone [...] + + + | Author | [facility] | + + + | Organization | [facility] | + + + | Address | Unknown | + + + | Phone | Unavailable | + + + Support + + +---------+ + | Name | Relationship | Address | Phone | + + +---------+ + | Mayito Shahid | ECON | Unknown | | + + +---------+ + Care Team Providers + +------+ + | Care Breaker Table Worker Name | Role | Phone | [...] | | | at wrist and | [place], [place] | [place] | | | | | hand level, | [address] | [address] | | | | | initial | Phone: | Phone: | | | | | encounter | [phone] | [phone] | | | | | Procedures | Fax: | Fax: | | | | | REQUEST TO | [phone] | [phone] | | | | | SURGERY | | | | | | | COPY OPERATOR | | | | | | | MI NERVE | | | | | | | REPAIR | | | | | | | W/ALLOGRAFT | | | | | | | MI NERVE | | | | | | [...] | deep | [address] | [place], [place] | | | | | laceration | AVE | [address] | | | | | in the left | [place], | Phone: | | | | | palm and | [place] [address] | [phone] | | | | | ongoing | Phone: | Fax: | | | | | chief | [phone] | [phone] | | | | | complaints | Fax: | | | | | | of weakness | [phone] | | | | | | in [...] wrist | | | | Surgery at [facility] [address] | [address] [place], [place] | and hand level, | | | | [address] | [address] | initial encounter | | | | Mailcode: CH5P | [phone] | (Primary Dx) | | | | [facility] | | | | | | and Healing, | | | | | | Building [address], 5th | | | | | | Floor [place], [place] | | | | | | [address] | | | | | | [phone] | | | +--------+---------+ + + + [...] with a kitchen knife. Went ED in [place]. Closed the skin. 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
--- OUTSIDE RECORDS SUMMARY | ~2020-01-15 | XMS | Encounter Summary ---
Demographics + + + | Address | [address] | | | [place] [address] | + + + | Home Phone | | + + + | Preferred Language | Unknown | + + + | Marital Status | Single | + + + | Mandaen Affiliation | CAT | + + + [...] Team Providers + +------+ + | Care Affiliate Marketing Coordinator Name | Role | Phone | [...] | | | | | Surgery at [facility] [address] | [address] [place], [place] | | | | | [address] | [address] | | | | | Mailcode: CH | [phone] | | | | | [facility] | | | | | | and [place], | | | | | | Building | | | | | | Floor [facility] [place] | | | | | | [address] | | | | | | [phone] | | | +--------+ + + + [...]
--- OUTSIDE RECORDS SUMMARY | ~2020-01-15 | XMS | Encounter Summary ---
Demographics + + + | Address | [address] | | | [place] [address] | + + + | Home Phone | | + + + | Preferred Language | Unknown | + + + | Marital Status | Single | + + + | Temple Affiliation | CAT | + + + [...] Team Providers + +------+ + | Care Boiling House Oiler Name | Role | Phone | + +------+ + PCP | Unavailable | + +------+ + Encounter Details +--------+ + + + + | Date | Type | Department | Care Team | Description | +--------+ + + + + | 05/31/ | ED Progress | UNKNOWN DEPARTMENT | Report, Emergency | ED Progress Note | | 2006 | | [address] [facility] | Services | | | | Note-Transc | [address] | | | | | [place] | [place], [place] | | | | | | [address] | | | +--------+ + + + [...]
--- OUTSIDE RECORDS SUMMARY | ~2020-01-15 | XMS | Encounter Summary ---
Demographics + + + | Address | [address] | | | [place] [address] | + + + | Home Phone | | + + + | Preferred Language | Unknown | + + + | Marital Status | Single | + + + | Sabianism Affiliation | 1041 | + + + [...] Team Providers + +------+ + | Care City Wellness Coordinator Name | Role | Phone | + +------+ + PCP | Unavailable | + +------+ + Encounter Details +--------+ + + + + | Date | Type | Department | Care Team | Description | +--------+ + + + + | 05/13/ | Emergency | [facility] | Nelson Guerra, | Other Chest Pain | | 2006 | | [facility] | [address] | | | | | EMERGENCY CENTER | [place] [address] | | | | | [address] | [phone] | | | | | [place], [place] | | | | | | [address] | | | | | | [phone] | | | +--------+ + + + [...] + | Diagnosis | + + | Other chest pain | + + documented in this encounter"
--- OUTSIDE RECORDS SUMMARY | ~2020-01-15 | XMS | Encounter Summary ---
Demographics + + + | Address | [address] | | | [place] [address] | + + + | Home Phone | | + + + | Preferred Language | Unknown | + + + | Marital Status | Single | + + + | Yazidism Affiliation | CAT | + + + | Race | White | + + + | Ethnic Group | Not or | + + + Author + + + | Author | [facility] | + + + | Organization | [facility] | + + + | Address | Unknown | + + + | Phone | Unavailable | + + + Support + + +---------+ + | Name | Relationship | Address | Phone | + + +---------+ + | Mayito Shahid | ECON | Unknown | | + + +---------+ + Care Team Providers + +------+ + | Care Inseam Trimming Machine Operator Name | Role | Phone [...] | | | | | Surgery at [facility] [address] | [address] [place], [place] | | | | | [address] | [address] | | | | | Mailcode: [facility] | [phone] | | | | | [facility] | | | | | | and Healing, | | | | | | Building [address], [address]th | | | | | | Floor [place], [place] | | | | | | [address] | | | | | | [phone] | | | +--------+ + + + [...]
--- OUTSIDE RECORDS SUMMARY | ~2020-01-15 | XMS | Encounter Summary ---
Demographics + + + | Address | [address] | | | [place] [address] | + + + | Home Phone [...] + + + | Author | [facility] | + + + | Organization | [facility] | + + + | Address | Unknown | + + + | Phone | Unavailable | + + + Support + + +---------+ + | Name | Relationship | Address | Phone | + + +---------+ + | Mayito Shahid | ECON | Unknown | | + + +---------+ + Care Team Providers + +------+ + | Care High Lift Mule Operator Name | Role | Phone | [...] at wrist and | [address] | [place], [place] | | | | | hand level, | [place], [place] | [address] | | | | | initial | [address] | Phone: | | | | | encounter | | [phone] | | | | | Procedures | | Fax: | | | | | [place] REPAIR | | [phone] | | | | | HAND/FOOT | [...] left, | | | | Surgery at [facility] [address] | [place] [address] | subsequent encounter | | | | [address] | | (Primary Dx) | | | | Mailcode: CH5P | | | | | | [facility] | | | | | | and Healing, | | | | | | Building [address], [address]th | | | | | | Floor [place], [place] | | | | | | [address] | | | | | | [phone] | | | +--------+---------+ + + + [...]
--- OUTSIDE RECORDS SUMMARY | ~2020-01-15 | XMS | Encounter Summary ---
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 Operator Name | Role | Phone | + +------+ + | Elmer Rangel MD | PCP | | + +------+ + Encounter Details +--------+ + + + + | Date | Type | Department | Care Team | Description | +--------+ + + + + | 10/08/ | Emergency | [facility] | David Rodríguez DO | Urinary tract | | 2017 - | | MEDICAL CENTER | [address] | infection without | | | | EMERGENCY CENTER | [place], [place] | hematuria, site | | 10/09/ | | [address] | [address] | unspecified; | | 2017 | | [place] | [phone] | Epigastric pain; | | | | [address] | | Lymphadenopathy, | | | | [phone] | | submandibular | +--------+ + + + + Social [...] + + + | Blood Pressure | 133/75 | 10/09/2016 1:30 AM | | | | | PDT | | + + + + + | Pulse | 115 | 10/09/2016 1:30 AM | | | | | PDT | | + + + + + | Temperature | 37.2 C (99 F) | 10/09/2016 1:30 AM | | | | | PDT | | + + + + + | Respiratory Rate | 18 | 10/09/2016 1:30 AM | | | | | PDT | | + + + + + | Oxygen Saturation | - | - | | + + + + + | Inhaled Oxygen | - | - | | | Concentration | | | | + + + + + | Weight | 59 kg (130 lb 1.1 | 10/09/2016 1:30 AM | | | | oz) | PDT | | + + + + + | Height | - | - | | + + + + + | Body Mass Index | 23.04 | 04/15/2016 11:03 AM | | | | | PDT | | + + + + + documented in this encounter ED Notes Chantale Varner PA-C - 10/08/2016 11:56 PM PDTFormatting of this note might be diffe rent from the original. ED Provider Notes by Chantale Varner PA-C at 10/08/162355 Author: Chantale Varner PA-C Service: -Emergency Author Type: Physician Library Director - Certified Filed: 10/10/16 0332 Date of Service: 10/08/162355 Status: Attested Water Plant Maintenance Mechanic: Chantale Varner PA-C (Physician Library Director - Certified) Cosigner: David Denis DO at 10/11/162025 Attestation signed by David Rodríguez DO at 10/11/162025 I have reviewed the note and supervised the mid-level provider. Procedures [facility] EMERGENCY DEPARTMENT History of Present Illness Patient Identification Reyna Shahid is a 31 y.o. female. Patient information was obtained from patient. History/Exam limitations: none. Patient presented to the Emergency Department by: Car Chief Complaint Chief Complaint Patient presents with Fever- 9 Weeks To 74 Years x4 days, 102.0 at home Abdominal Pain epigastric that shoots into the middle back 31 year old female to the ED with multiple vague coomplaints. She reports that she has bee n monitoring her temp for the past few days. It has "mostly been low grade, but at one poin t measured 102, and I have this lump to the side of my neck that is painful". No dysphagia . Also c/o sharp, iintermittent epigastric pain that radiates around the left side to the mi ddle of her back. The abdominal pain started earlier today. No n/v/d. Recent bowel moveme nt. Denies any dysuria or respiratory symptoms. No significant medical issues. No past medical history on file. No past surgical history on file. Prior to Admission medications Medication Sig Start Date End Date Taking? Authorizing Provider sertraline (ZOLOFT) 50 MG tablet Take 50 mg by mouth daily. Yes Historical Provider Vit-Fe Fumarate-FA ( MULTIVITAMIN & MINERALS W IRON/FA) 27-0.8 MG TABS tab let Take 1 tablet by mouth daily with breakfast. Historical Provider Allergies Allergen Reactions Codeine Hives and Anxiety Phenergan [Promethazine] Anxiety Reglan [Metoclopramide] Agitation Toradol [Ketorolac] Nausea Only and Anxiety Social History Social History Marital Status: Single Spouse Name: N/A Number of Children: N/A Years of Education: N/A Occupational History Not on file. Social History Main Topics Smoking status: Never Smoker Smokeless tobacco: Not on file Alcohol Use: Not on file Drug Use: Not on file Sexual Activity: Not on file Other Topics Concern Not on file Social History Narrative No family history on file. ROS Review of Systems Constitutional: Positive for fever. Negative for chills. HENT: Negative for congestion, ear discharge, ear pain and sore throat. Respiratory: Negative for cough, shortness of breath and wheezing. Cardiovascular: Negative for chest pain and palpitations. Gastrointestinal: Positive for abdominal pain. Negative for nausea, vomiting, diarrhea and constipation. Genitourinary: Negative for dysuria. Musculoskeletal: Lump to the side of my neck Neurological: Negative for dizziness and headaches. All other systems reviewed and are negative. Physical Exam BP 119/67 mmHg | Pulse 78 | Temp(Src) 99 F (37.2 C) (Oral) | Resp 18 | Wt 59 kg (130 lb 1.1 oz) | SpO2 97% | LMP 09/17/2016 Pulse Oximetry interpretation: Normal General: Alert, in no apparent distress with normal vitals as above. Eyes: Normal inspection, pupils equal and round ENT: Pharynx normal Neck: Normal inspection Supple Mildly enlarged lymph node to the left submandibular region that is tender to palpation. No meningismus Cardiovascular: Rate and rhythm normal No murmurs Respiratory: Breath sounds normal bilaterally. Respirations are non-labored Abdomen: Soft, mild epigastric tenderness but no rebound or guarding. Genitourinary: Deferred Rectal exam: Deferred Back: Normal inspection. No CVA tenderness Skin: Color normal Warm and dry No rash Neuro: No motor deficit No sensory deficit Normal gait. Alert and oriented, anxious. Purposeful movement of all extremities. ED Course Medical Decision Making and Emergency Department Course Differential diagnosis includes but is not limited to cholecystitis, cholelithiasis, pancre atitis, gastritis, PUD, etc. I have ordered labs and will consider imaging when resulted. ED Department Course CBC and CMP are unremarkable. Lipase, TSH and CRP are within normal limits. Urine reveals a probable UTI - + nitrites with elevated WBC and 4+ bacteria. However, may be a contamina nt as there are >100 epithelials. I have discussed with Dr. Rodríguez and he suggests treatm ent as she has had subjective fever for several days. Discharging home with an Rx for kefle x as this will cover both UTI and lymphadenopathy. She is to f/u with her PCP for further e valuation if lymphadenopathy not resolving with antibiotics. Records Reviewed Old medical records.reviewed are unrelated to today's presentation Labs & Radiology Results Laboratory Evaluation Results Procedure Component Value Ref Range Date/Time Complete Metabolic Panel [[id number]] Collected: 10/08/162339 Order Status: Completed Specimen Information: Blood Updated: 10/09/1623 SODIUM 142 135 - 145 mmol/L POTASSIUM 3.7 3.5 - 4.9 mmol/L CHLORIDE 107 99 - 109 mmol/L CO2 29 23 - 32 mmol/L ANION GAP AGAP 11 5 - 20 mmol/L GLUCOSE 95 65 - 99 mg/dL BUN 14 8 - 25 mg/dL CREATININE 0.77 0.50 - 1.00 mg/dL BUN/CREAT 19 CALCIUM 9.1 8.5 - 10.5 mg/dL TOTAL PROTEIN 7.5 6.3 - 8.2 g/dL Albumin 4.4 3.6 - 5.0 g/dL GLOBULIN 3.1 1.3 - 4.9 g/dL A/G 1.4 1.0 - 2.4 TBIL 0.4 0.1 - 1.5 mg/dL ALK PHOS 64 35 - 115 U/L AST 12 10 - 45 U/L ALT 25 10 - 65 U/L EGFR >60 >60 mL/min/1.73m2 Amylase [[id number]] Collected: 10/08/162339 Order Status: Completed Specimen Information: Blood Updated: 10/09/1623 AMYLASE 84 25 - 115 U/L Lipase [[id number]] Collected: 10/08/162339 Order Status: Completed Specimen Information: Blood Updated: 10/09/1623 LIPASE 111 73 - 393 U/L C-Reactive Protein [[id number]] Collected: 10/08/162339 Order Status: Completed Specimen Information: Blood Updated: 10/09/1623 CRP <0.3 <0.5 mg/dL TSH [[id number]] Collected: 10/08/162339 Order Status: Completed Updated: 10/09/16 0024 TSH 1.16 0.45 - 5.10 uIU/mL Urinalysis (reflex to microscopic/reflex to culture) [[id number]] (Abnormal) Collected: 10/08/162340 Order Status: Completed Specimen Information: Urine, Clean Catch Updated: 10/09/16 00 12 COLOR UA YELLOW CLARITY CLOUDY Specific [place], UA 1.018 1.002 - 1.030 LEUKOCYTE ESTERASE TRACE (A) NEGATIVE NITRITE POSITIVE (A) NEGATIVE UROBILINOGEN NORMAL <1.1 mg/dL PROTEIN NEGATIVE NEGATIVE mg/dL PH,URINE 5.0 5.0 - 8.0 BLOOD NEGATIVE NEGATIVE KETONES NEGATIVE NEGATIVE mg/dL BILIRUBIN NEGATIVE NEGATIVE GLUCOSE NEGATIVE NEGATIVE mg/dL WBC 6-10 0 - 5 /hpf RBC 0-2 0 - 5 /hpf BACTERIA 4+ (A) NONE SEEN EPITHELIAL >100 /lpf Mucus, UA 2+ CBC w Auto Diff [[id number]] Collected: 10/08/162339 Order Status: Completed Specimen Information: Blood Updated: 10/09/16 0007 WBC 7.30 3.80 - 11.00 K/uL RBC 4.42 3.70 - 5.10 M/uL HGB 13.6 11.3 - 15.5 g/dL HCT 39.8 34.0 - 46.0 % MCV 90.1 80.0 - 100.0 fl MCH 30.8 27.0 - 34.0 pg MCHC 34.2 32.0 - 35.5 g/dL RDW SD 40.3 37 - 53 fl PLT 176 150 - 400 K/uL MPV 8.6 fl DIFF TYPE AUTOMATED NEUTROPHILS 52.43 % LYMPHOCYTES 38.12 % MONOCYTES 8.30 % EOSINOPHILS 0.57 % BASOPHILS 0.58 % NEUTROPHILS ABS 3.83 1.90 - 7.40 K/uL LYMPHOCYTES ABS 2.78 1.00 - 3.90 K/uL MONOCYTES ABS 0.61 0.00 - 0.80 K/uL EOSINOPHILS ABS 0.04 0.00 - 0.50 K/uL BASOPHILS ABS 0.04 0.00 - 0.10 K/uL Radiology and EKG Evaluation Imaging Results None Diagnosis & Disposition ED Diagnoses Final diagnoses Urinary tract infection without hematuria, site unspecified Epigastric pain Lymphadenopathy, submandibular - left Disposition: ED Disposition Orders Discharge Condition at discharge: Stable Follow-up Information Follow up With Details Comments Contact Info Jessica Craft PA-C as scheduled for further evaluation [address] [place] [address] Discharge Medications: Discharge Medication List as of 10/09/2016 1:48 AM START taking these medications Details cephALEXin (KEFLEX) 500 MG capsule Take 1 capsule by mouth 4 (four) times daily., Starting 10/09/2016, Until Wed10/19/16, Print Chantale Varner PA-C 10/10/16331 David Rodríguez DO 10/11/162025 documented i n this encounter Plan of Treatment Not on filedocumented as of this encounter Procedures + +--------+ + + + | Procedure Name | Priori | Date/Time | Associated Diagnosis | Comments | | | ty | | | | + +--------+ + + + | URINALYSIS, REFLEX | Routin | 10/08/2016 | | Results for this | | MICROSCOPIC AND/OR | e | 11:41 PM | | procedure are in the | | CULTURE | | PDT | | results section. | + +--------+ + + + | CULTURE, URINE | Routin | 10/08/2016 | | Results for this | | | e | 11:41 PM | | procedure are in the | | | | PDT | | results section. | + +--------+ + + + | EXTERNAL LAB: CBC | Routin | 10/08/2016 | | Results for this | | | e | 11:40 PM | | procedure are in the | | | | PDT | | results section. | + +--------+ + + + | C-REACTIVE PROTEIN | Routin | 10/08/2016 | | Results for this | | | e | 11:40 PM | | procedure are in the | | | | PDT | | results section. | + +--------+ + + + | TSH | Routin | 10/08/2016 | | Results for this | | | e | 11:40 PM | | procedure are in the | | | | PDT | | results section. | + +--------+ + + + | LIPASE | Routin | 10/08/2016 | | Results for this | | | e | 11:40 PM | | procedure are in the | | | | PDT | | results section. | + +--------+ + + + | AMYLASE | Routin | 10/08/2016 | | Results for this | | | e | 11:40 PM | | procedure are in the | | | | PDT | | results section. | + +--------+ + + + | COMPREHENSIVE | Routin | 10/08/2016 | | Results for this | | METABOLIC PANEL | e | 11:40 PM | | procedure are in the | | | | PDT | | results section. | + +--------+ + + + documented in this encounter Results Culture, Urine (10/08/2016 11:41 PM PDT) + + | Specimen | + + | | + + + + + | Narrative | Performed At | + + + | Specimen Description URINE, COLLECTION NOT | EXTERNAL LAB | | GIVEN CULTURE >100,000 | | | CFU/ML | | | ESCHERICHIA COLIAbnormal Suscepibility for - ESCHERICHIA COLI | | | Ampicillin RESISTANT Resistant | | | Ampicillin + Sulbactam RESISTANT Resistant Cefepime | | | SUSCEPTIBLESensitive Cefoxitin | | | SUSCEPTIBLESensitive Ceftazidime | | | SUSCEPTIBLESensitive Ceftriaxone | | | SUSCEPTIBLESensitive Ciprofloxacin | | | SUSCEPTIBLESensitive Gentamicin | | | RESISTANT Resistant Levofloxacin | | | SUSCEPTIBLESensitive Nitrofurantoin | | | SUSCEPTIBLESensitive Tobramycin | | | INTERMEDIATEIntermediate Trimethoprim + SulfamethoxazoleRESISTANT | | | Resistant | | + + + + +---------+ + + | Performing | Address | City/State/Zipcode | Phone Number | | Organization | | | | + +---------+ + + | EXTERNAL LAB | | | | + +---------+ + + Urinalysis, Reflex Microscopic and/or Culture (10/08/2016 11:41 PM PDT) + + + + + + | Component | Value | Ref Range | Performed | Pathologist | | | | | At | Signature | + + + + + + | Color | YELLOWComment: Testing | | EXTERNAL | | | | performed at [facility] [facility] | | LAB | | | | [address];[place] | | | | | | [address] | | | | + + + + + + | Clarity | CLOUDYComment: Testing | | EXTERNAL | | | | performed at [facility];[address] | | LAB | | | [address];[place] | | | | | | [address] | | | | + + + + + + | Specific | 1.018Comment: Testing | 1.002 - 1.030 | EXTERNAL | | | [place], | performed at [facility];[address] | | LAB | | | Urine | [address];[place] | | | | | | [address] | | | | + + + + + + | Leukocyte | TRACE (A)Comment: | | EXTERNAL | | | Esterase, | Testing performed at | | LAB | | | Urine | [facility] [place];[address];[place] [address] | | | | + + + + + + | Nitrite, | POSITIVE (A)Comment: | | EXTERNAL | | | Urine | Testing performed at | | LAB | | | | [facility];[address];[place] [address] | | | | + + + + + + | Urobilinoge | NORMALComment: Testing | mg/dL | EXTERNAL | | | n, Urine | performed at [facility];[address] | | LAB | | | | [address];[place] | | | | | | [address] | | | | + + + + + + | Protein, | NEGATIVEComment: Testing | mg/dL | EXTERNAL | | | Urine | performed at [facility];[address] | | LAB | | | [address];[place] | | | | | | [address] | | | | + + + + + + | pH, Urine | 5.0Comment: Testing | 5.0 - 8.0 | EXTERNAL | | | | performed at [facility] [place];[address] | | LAB | | | | [address];[place] | | | | | | [address] | | | | + + + + + + | Blood, | NEGATIVEComment: Testing | | EXTERNAL | | | Urine | performed at [facility];[address] | | LAB | | | [address];[place] | | | | | | [address] | | | | + + + + + + | Ketones | NEGATIVEComment: Testing | mg/dL | EXTERNAL | | | | performed at [facility];[address] | | LAB | | | | [address];[place] | | | | | | [address] | | | | + + + + + + | Bilirubin, | NEGATIVEComment: Testing | | EXTERNAL | | | Urine | performed at [facility];[address] | | LAB | | | [address];[place] | | | | | | [address] | | | | + + + + + + | Glucose, | NEGATIVEComment: Testing | mg/dL | EXTERNAL | | | Urine | performed at [facility];[address] | | LAB | | | | [address];[place] | | | | | | [address] | | | | + + + + + + | WBC, UA | 6-10Comment: Testing | 0 - 5 /hpf | EXTERNAL | | | | performed at [facility];[address] | | LAB | | | | [address];[place] | | | | | | [address] | | | | + + + + + + | RBC, UA | 0-2Comment: Testing | 0 - 5 /hpf | EXTERNAL | | | | performed at [facility];[address] | | LAB | | | | [address];[place] | | | | | | [address] | | | | + + + + + + | Bacteria, | 4+ (A)Comment: Testing | | EXTERNAL | | | UA | performed at [facility];[address] | | LAB | | | | [address];[place] | | | | | | [address] | | | | + + + + + + | Epithelial | >100Comment: Testing | /lpf | EXTERNAL | | | Cells | performed at [facility];[address] | | LAB | | | | [address];[place] | | | | | | [address] | | | | + + + + + + | Mucus, | 2+Comment: Testing | | EXTERNAL | | | Urine | performed at [facility];[address] | | LAB | | | [address];[place] | | | | | | [address] | | | | + + + + + + + + | Specimen | + + | | + + + +---------+ + + | Performing | Address | City/State/Zipcode | Phone Number | | Organization | | | | + +---------+ + + | EXTERNAL LAB | | | | + +---------+ + + External Lab: CBC (10/08/2016 11:40 PM PDT) + + + + + + | Component | Value | Ref Range | Performed | Pathologist | | | | | At | Signature | + + + + + + | WBC | 7.30Comment: Testing | 3.80 - 11.00 | EXTERNAL | | | | performed at [facility];[address] | K/uL | LAB | | | | [address];[place] | | | | | | [address] | | | | + + + + + + | Red Blood | 4.42Comment: Testing | 3.70 - 5.10 | EXTERNAL | | | Cells | performed at [facility];[address] | M/uL | LAB | | | Counted | [address];[place] | | | | | | [address] | | | | + + + + + + | Hemoglobin | 13.6Comment: Testing | 11.3 - 15.5 | EXTERNAL | | | | performed at [facility] [facility];[address] | g/dL | LAB | | | | [address];[place] | | | | | | [address] | | | | + + + + + + | Hematocrit, | 39.8Comment: Testing | 34.0 - 46.0 % | EXTERNAL | | | POC | performed at [facility] [facility];[address] | | LAB | | | | [address];[place] | | | | | | [address] | | | | + + + + + + | MCV | 90.1Comment: Testing | 80.0 - 100.0 fl | EXTERNAL | | | | performed at [facility];[address] | | LAB | | | | [address];[place] | | | | | | [address] | | | | + + + + + + | MCH | 30.8Comment: Testing | 27.0 - 34.0 pg | EXTERNAL | | | | performed at [facility] [facility];[address] | | LAB | | | | [address];[place] | | | | | | [address] | | | | + + + + + + | MCHC | 34.2Comment: Testing | 32.0 - 35.5 | EXTERNAL | | | | performed at [facility] [facility];[address] | g/dL | LAB | | | | [address];[place] | | | | | | [address] | | | | + + + + + + | RDW-CV | 40.3Comment: Testing | 37 - 53 fl | EXTERNAL | | | | performed at [facility];[address] | | LAB | | | | [address];[place] | | | | | | [address] | | | | + + + + + + | Platelet | 176Comment: Testing | 150 - 400 K/uL | EXTERNAL | | | Count | performed at [facility];[address] | | LAB | | | Plasma | [address];[place] | | | | | | [address] | | | | + + + + + + | MPV | 8.6Comment: Testing | fl | EXTERNAL | | | | performed at [facility];[address] | | LAB | | | | [address];[place] | | | | | | [address] | | | | + + + + + + | Differentia | AUTOMATEDComment: | | EXTERNAL | | | l Type | Testing performed at | | LAB | | | | [facility];[address];[place] [address] | | | | + + + + + + | % Segmented | 52.43Comment: Testing | % | EXTERNAL | | | | performed at [facility];[address] | | LAB | | | Neutrophils | [address];[place] | | | | | | [address] | | | | + + + + + + | % | 38.12Comment: Testing | % | EXTERNAL | | | Lymphocytes | performed at [facility];[address] | | LAB | | | | [address];[place] | | | | | | [address] | | | | + + + + + + | % Monocytes | 8.30Comment: Testing | % | EXTERNAL | | | | performed at [facility];[address] | | LAB | | | | [address];[place] | | | | | | [address] | | | | + + + + + + | % | 0.57Comment: Testing | % | EXTERNAL | | | Eosinophils | performed at [facility];[address] | | LAB | | | | [address];[place] | | | | | | [address] | | | | + + + + + + | % Basophils | 0.58Comment: Testing | % | EXTERNAL | | | | performed at [facility];[address] | | LAB | | | | [address];[place] | | | | | | [address] | | | | + + + + + + | Absolute | 3.83Comment: Testing | 1.90 - 7.40 | EXTERNAL | | | Segmented | performed at [facility] [place] [facility];[address] | K/uL | LAB | | | Neutrophils | [address];[place] | | | | | | [address] | | | | + + + + + + | Absolute | 2.78Comment: Testing | 1.00 - 3.90 | EXTERNAL | | | Lymphocytes | performed at [facility];[address] | K/uL | LAB | | | | [address];[place] | | | | | | [address] | | | | + + + + + + | Absolute | 0.61Comment: Testing | 0.00 - 0.80 | EXTERNAL | | | Monocytes | performed at [facility];[address] | K/uL | LAB | | | | [address];[place] | | | | | | [address] | | | | + + + + + + | Absolute | 0.04Comment: Testing | 0.00 - 0.50 | EXTERNAL | | | Eosinophils | performed at [facility];[address] | K/uL | LAB | | | | [address];[place] | | | | | | [address] | | | | + + + + + + | Absolute | 0.04Comment: Testing | 0.00 - 0.10 | EXTERNAL | | | Basophils | performed at [facility];[address] | K/uL | LAB | | | | [address];[place] | | | | | | [address] | | | | + + + + + + + + | Specimen | + + | Blood specimen | | (specimen) | + + + +---------+ + + | Performing | Address | City/State/Zipcode | Phone Number | | Organization | | | | + +---------+ + + | EXTERNAL LAB | | | | + +---------+ + + C-Reactive Protein (10/08/2016 11:40 PM PDT) + + + + + + | Component | Value | Ref Range | Performed | Pathologist | | | | | At | Signature | + + + + + + | CRP | <0.3Comment: Testing | mg/dL | EXTERNAL | | | | performed at [facility];[address] | | LAB | | | | [address];[place] | | | | | | [address] | | | | + + + + + + + + | Specimen | + + | Blood specimen | | (specimen) | + + + +---------+ + + | Performing | Address | City/State/Zipcode | Phone Number | | Organization | | | | + +---------+ + + | EXTERNAL LAB | | | | + +---------+ + + TSH (10/08/2016 11:40 PM PDT) + + + + + + | Component | Value | Ref Range | Performed | Pathologist | | | | | At | Signature | + + + + + + | TSH | 1.16Comment: Testing | 0.45 - 5.10 | EXTERNAL | | | | performed at [facility];888 | uIU/mL | LAB | | | | [address];[place], [place] | | | | | | [address] | | | | + + + + + + + + | Specimen | + + | | + + + +---------+ + + | Performing | Address | City/State/Zipcode | Phone Number | | Organization | | | | + +---------+ + + | EXTERNAL LAB | | | | + +---------+ + + Lipase (10/08/2016 11:40 PM PDT) + + + + + + | Component | Value | Ref Range | Performed | Pathologist | | | | | At | Signature | + + + + + + | Lipase | 111Comment: Testing | 73 - 393 U/L | EXTERNAL | | | | performed at [facility];[address] | | LAB | | | | [address];[place] | | | | | | [address] | | | | + + + + + + + + | Specimen | + + | Blood specimen | | (specimen) | + + + +---------+ + + | Performing | Address | City/State/Zipcode | Phone Number | | Organization | | | | + +---------+ + + | EXTERNAL LAB | | | | + +---------+ + + Amylase (10/08/2016 11:40 PM PDT) + + + + + + | Component | Value | Ref Range | Performed | Pathologist | | | | | At | Signature | + + + + + + | Amylase | 84Comment: Testing | 25 - 115 U/L | EXTERNAL | | | | performed at [facility] [place];[address] | LAB | | | [address];[place], [place] | | | | | | [id number] | | | | + + + + + + + + | Specimen | + + | Blood specimen | | (specimen) | + + + +---------+ + + | Performing | Address | City/State/Zipcode | Phone Number | | Organization | | | | + +---------+ + + | EXTERNAL LAB | | | | + +---------+ + + Comprehensive Metabolic Panel (10/08/2016 11:40 PM PDT) + + + + + + | Component | Value | Ref Range | Performed | Pathologist | | | | | At | Signature | + + + + + + | Na | 142Comment: Testing | 135 - 145 | EXTERNAL | | | | performed at [facility];888 | mmol/L | LAB | | | | [address];[place] | | | | | | [address] | | | | + + + + + + | K | 3.7Comment: Testing | 3.5 - 4.9 | EXTERNAL | | | | performed at [facility] [place];888 | mmol/L | LAB | | | | [address];[place] | | | | | | [address] | | | | + + + + + + | Cl | 107Comment: Testing | 99 - 109 mmol/L | EXTERNAL | | | | performed at [facility] [place];888 | | LAB | | | | [address];[place] | | | | | | [address] | | | | + + + + + + | CO2 | 29Comment: Testing | 23 - 32 mmol/L | EXTERNAL | | | | performed at [facility] [place];888 | | LAB | | | | [address];[place] | | | | | | [address] | | | | + + + + + + | Anion Gap | 11Comment: Testing | 5 - 20 mmol/L | EXTERNAL | | | | performed at [facility] [place];888 | | LAB | | | | [address];[place] | | | | | | [address] | | | | + + + + + + | Glucose, | 95Comment: Testing | 65 - 99 mg/dL | EXTERNAL | | | Fasting | performed at [facility] [place];888 | | LAB | | | | [address];[place] | | | | | | [address] | | | | + + + + + + | BUN | 14Comment: Testing | 8 - 25 mg/dL | EXTERNAL | | | | performed at [facility] [place];888 | | LAB | | | | [address];[place] | | | | | | [address] | | | | + + + + + + | Creatinine | 0.77Comment: Testing | 0.50 - 1.00 | EXTERNAL | | | | performed at [facility] [place];888 | mg/dL | LAB | | | | [address];[place] | | | | | | [address] | | | | + + + + + + | BUN/Creatin | 19Comment: Testing | | EXTERNAL | | | ine Ratio | performed at [facility] [place];888 | | LAB | | | | [address];[place] | | | | | | [address] | | | | + + + + + + | Calcium | 9.1Comment: Testing | 8.5 - 10.5 | EXTERNAL | | | | performed at [facility] [place];888 | mg/dL | LAB | | | | [address];[place] | | | | | | [address] | | | | + + + + + + | Protein, | 7.5Comment: Testing | 6.3 - 8.2 g/dL | EXTERNAL | | | Total | performed at [facility] [place];888 | | LAB | | | | [address];[place] | | | | | | [address] | | | | + + + + + + | Albumin | 4.4Comment: Testing | 3.6 - 5.0 g/dL | EXTERNAL | | | | performed at [facility] [place];888 | | LAB | | | | [address];[place] | | | | | | [address] | | | | + + + + + + | Globulin | 3.1Comment: Testing | 1.3 - 4.9 g/dL | EXTERNAL | | | | performed at [facility] [place];888 | | LAB | | | | [address];[place] | | | | | | [address] | | | | + + + + + + | A/G Ratio | 1.4Comment: Testing | 1.0 - 2.4 | EXTERNAL | | | | performed at [facility] [place];888 | | LAB | | | | [address];[place] | | | | | | [address] | | | | + + + + + + | Bilirubin | 0.4Comment: Testing | 0.1 - 1.5 mg/dL | EXTERNAL | | | Total | performed at [facility] [place];888 | | LAB | | | | [address];[place] | | | | | | [address] | | | | + + + + + + | ALP, | 64Comment: Testing | 35 - 115 U/L | EXTERNAL | | | External | performed at [facility] [place];[address] | | LAB | | | | [address];[place] | | | | | | [address] | | | | + + + + + + | AST | 12Comment: Testing | 10 - 45 U/L | EXTERNAL | | | | performed at [facility] [place];888 | | LAB | | | | [address];[place] | | | | | | [address] | | | | + + + + + + | ALT | 25Comment: Testing | 10 - 65 U/L | EXTERNAL | | | | performed at [facility] [place];888 | | LAB | | | | [address];[place] | | | | | | [address] | | | | + + + + + + | Estimated | >60Comment: GFR <60: | mL/min/1.73m2 | EXTERNAL | | | GFR | CHRONIC KIDNEY DISEASE, | | LAB | | | | IF FOUND OVER A 3 MONTH | | | | | | PERIOD.GFR <15: KIDNEY | | | | | | FAILURE.FOR | | | | | | AMERICANS, MULTIPLY THE | | | | | | CALCULATED GFR BY | | | | | | 1.210.Testing performed | | | | | | at [facility] [place];[address] [place] [address] | | | | | | [facility];[place] [address] | | | | + + + [...] + | Diagnosis | + + | Urinary tract infection without hematuria, site unspecified | + + | Epigastric pain Abdominal pain, epigastric | + + | Lymphadenopathy, submandibular | + + documented in this encounter
--- OUTSIDE RECORDS SUMMARY | ~2020-01-15 | XMS | Encounter Summary ---
Demographics + + + | Address | [address] | | | [place] [address] | + + + | Home Phone [...] Author + + + | Author | [facility] | + + + | Organization | [facility] | + + + | Address | Unknown | + + + | Phone | Unavailable | + + + Support + + +---------+ + | Name | Relationship | Address | Phone | + + +---------+ + | Mayito Shahid | ECON | Unknown | | + + +---------+ + Care Team Providers + +------+ + | Care Technical Publications Writer Name | Role | Phone | + [...] | | | | Jerome Yañezon | [facility] | | | | | Ambulatory Surgery | [place], [place] | | | | | Admitting Desk | [address] | | | | | Located on the [facility] | [phone] | | | | | floor, Room [facility] | | | | | | [place], [place] | | | | | | [address] | | | +--------+ + + + [...]
--- OUTSIDE RECORDS SUMMARY | ~2020-01-15 | XMS | Encounter Summary ---
Demographics + + + | Address | [address] | | | [place] [address] | + + + | Home Phone | | + + + | Preferred Language | Unknown | + + + | Marital Status | Single | + + + | Latter Day Affiliation | CAT | + + + | Race | White | + + + | Ethnic Group | Not or | + + + Author + + + | Author | [facility] | + + + | Organization | [facility] | + + + | Address | Unknown | + + + | Phone | Unavailable | + + + Support + + +---------+ + | Name | Relationship | Address | Phone | + + +---------+ + | Mayito Shahid | ECON | Unknown | | + + +---------+ + Care Team Providers + +------+ + | Care Dental Aide Name | Role | Phone | + [...] [id number] | | | | | | [place], [place] | | | | | | [address] | | | | | | [phone] | | | +--------+ + + + [...]
--- OUTSIDE RECORDS SUMMARY | ~2020-01-15 | XMS | Clinical Summary ---
Demographics + + + | Address | [address] | | | [place] [address] | + + + | Home Phone [...] + | Author | [facility] | | | and [place] | + + + | Organization | [facility] | | | and [...] Team Providers + +------+ + | Care Dtp Operator Name | Role | Phone | + +------+ + | Elmer Rangel MD | PCP | | + +------+ + Allergies + + + + + + | Active Allergy | Reactions | Severity | Noted | Comments | | | | | Date | | + + + + + + | Codeine | Hives | | 11/20/19 | | | | | | 20 | | + + + + + + | Ketorolac | Anxiety, Nausea Only | Low | 04/26/20 | | | | | | 15 | | + + + + + + | Lorazepam | Other (See Comments) | Low | 11/23/19 | Reaction: Anxiety | | | | | 19 | | + + + + + + | Metoclopramide | Other (See Comments) | Low | 04/26/20 | | | | | | 15 | | + + + + + + | Promethazine | Other (See Comments) | | 11/20/19 | Reaction: Unknown | | | | | 20 | | + + + + + + Medications + + + +---------+------+------+-------+ | Medication | Sig | Dispensed | Refills | Star | End | Statu | | | | | | t | Date | s | | | | | | Date | | | + + + +---------+------+------+-------+ | 27-0.8 mg | Take 1 tablet by | | 0 | | | Activ | | multivitamin tablet | mouth Daily. | | | | | e | + + + +---------+------+------+-------+ Active Problems + + + | Problem | Noted Date | + + + | Costochondritis | 12/01/2018 | + + + | Chronic maxillary sinusitis | 11/29/2018 | + + + | Deviated nasal septum | 11/29/2018 | + + + | Eustachian tube obstruction, intrinsic cartilagenous, bilateral | 11/29/2018 | + + + | Disorder of eustachian tube | 01/14/2018 | + + + | Anxiety about health | 08/09/2017 | + + + | Depression | 02/16/2017 | + + + | Laceration of left ulnar nerve at wrist and hand level | 04/30/2016 | + + + Encounters +--------+ + + + + | Date | Type | Specialty | Care Team | Description | +--------+ + + + + | 12/31/ | Telephone | Gastroenterology | Darryl | Results | | 2020 | | | KAELYN Cruz | | +--------+ + + + + | 12/27/ | Imaging | Radiology | Provider, | | | 2019 | Exam | | MD Rm | | +--------+ + + + + | 12/27/ | Hospital | Radiology | [facility], | Liver lesion | | 2019 | Encounter | | KAELYN Cruz | | +--------+ + + + + | 12/18/ | Telephone | Gastroenterology | [facility], | Results | 2019 | | | KAELYN Cruz | | +--------+ + + + + | 12/06/ | Virtual | Gastroenterology | [facility], | Liver lesion | | 2019 | Office | | KAELYN Cruz | (Primary Dx); | | | Visit | | | Elevated liver | | | | | | enzymes | +--------+ + + + + | 12/06/ | Telephone | Gastroenterology | [facility], | Other | | 2019 | | | KAELYN Cruz | | +--------+ + + + + | 11/19/ | Abstract | Gastroenterology | Provider, | | | 2019 | | | MD Rm | | +--------+ + + + + from Last 3 Months Immunizations + + + + | Name | Administration Dates | Next Due | + + + + | INFLUENZA, | 06/16/2017 | | | UNSPECIFIED | | | | FORMULATION | | | + + + + | MMR, 2 DOSE | 07/01/2017 | | | (PED/ADULT) | | | + + + + | TDAP, (ADOL/ADULT) | 08/11/2015 | | + + + + Family History + +------+--------+ + | Relation | Name | Status | Comments | + +------+--------+ + | Father | | Alive | | + +------+--------+ + | Mother | | Alive | | + +------+--------+ + Social History + +-------+ +--------+------+ | [...] 3:51 PM PDT | + + + Last Filed Vital Signs + [...] + + + + | Height | 160 cm (5' 3") | 04/15/2016 11:03 AM | | | | | PDT | | + + + + + | Body Mass Index | 23.91 | 04/15/2016 11:03 AM | | | | | PDT | | + + + + + Plan of Treatment + + + + + | Health Maintenance | Due Date | Last | Comments | | | | Done | | + + + + + | Cervical Cancer | | | | | Screening (Pap) | 6 | | | + + + + + | Vaccine: Influenza | | 06/16/20 | | | (Season Ended) | 0 | 17, | | | | | 06/16/20 | | | | | 17 | | + + + + + | Vaccine: | | 08/11/19 | | | Dtap/Tdap/Td (2 - | 6 | 16 | | | Td) | | | | + + + + + Procedures + +--------+ + + + | [...] | + +--------+ + + + | LABS - EXTERNAL SCAN | | 12/06/2019 | | Results for this | | | | 12:00 AM | | procedure are in the | | | | PDT | | results section. | + +--------+ + + + | LABS - EXTERNAL SCAN | | 12/06/2019 | | Results for this | | | | 12:00 AM | | procedure are in the | | | | PDT | | results section. | + +--------+ + + + | CT ABDOMEN W WO | Routin | 12/04/2019 | | Results for this | | CONTRAST | e | 12:00 AM | | procedure are in the | | | | PDT | | results section. | + +--------+ + + + from Last 3 Months Results MRI Liver w wo Contrast (12/28/2019 [...] | | diffusion weighted, axial T1, axial X3havtzenzehnv, coronal T1 postcontrast. | | Postcontrast images [...] | | | + +---------+ + + LABS - EXTERNAL SCAN (12/06/2019 12:00 AM PDT)Only the most recent of 2 results within the time period is included. + + + | Narrative | Performed At | + + + | Ordered by an | | | unspecified provider. | | + + + CT Abdomen w wo Contrast (12/04/2019 12:00 AM PDT) + + | Specimen [...] | | | + +---------+ + + from Last 3 Months Insurance + +--------+ +--------+ +---------+--------+ | Payer | Benefi | Subscriber | Effect | Phone | Address | Type | | | t Plan | ID | nancy | | | | | | / | | Dates | | | | | | Group | | | | | | + +--------+ +--------+ +---------+--------+ | [employer] | [employer] | [id number] | | [phone] | | Medica | | MEDICAID HMO | HEALTH | | 020-Pr | 1 | | id | | | MDCD | | esent | | | | | | [place] | | | | | | + +--------+ +--------+ +---------+--------+ + +--------+ +--------+ + + | Guarantor Name | Accoun | Relation to | Date | Phone | Billing Address | | | t Type | Patient | of | | | | | | | | | | + +--------+ +--------+ + + | Reyna Negrete | Person | Self [birth year] | [address] | | [place] | ely/Fam | | 1985 | [phone] | [place] | | | [place] | | | 2 (Home) | [id number] | + +--------+ +--------+ + + Advance Directives + + + + + | Type | Date Recorded | Patient | Explanation | | | | Radio Installer | | + + + + + | Power of | | | | | Anesthesiologists' Assistant | | | | + + + + + | Advance | | | | | Directive | | | | + + + + +
--- OUTSIDE RECORDS SUMMARY | ~2020-01-15 | XMS | Encounter Summary ---
Demographics + + + | Address | [address] | | | [place] [address] | + + + | Home Phone [...] Team Providers + +------+ + | Care Professor Of Social Work Name | Role | Phone | + [...] | 2016 | | Reconstructive | ,PhD [address] | Questions | | | | Surgery at [facility] [address] [place], [place] | | | | | [address] | [address] | | | | | Mailcode: [facility] | [phone] | | | | | [facility] | | | | | | and [place], | | | | | | [facility] | | | | | | [place], [place] | | | | | | [address] | | | | | | [phone] | | | +--------+ + + + [...]
--- OUTSIDE RECORDS SUMMARY | ~2020-01-15 | XMS | Encounter Summary ---
Demographics + + + | Address | [address] | | | [place] [address] | + + + | Home Phone [...] Team Providers + +------+ + | Care Accountant Certified Public Name | Role | Phone | + [...] eyes | | 2018 | Visit | [place] | OD [address] | and vision (Primary | | | | ogy at [facility] [address] | [place], [place] | Dx) | | | | [address] Mailcode: | [address] | | | | | [facility] | [phone] | | | | | Health and Healing, | | | | | | Building | | | | | | Floor [place], [place] | | | | | | [address] | | | | | | [phone] | | | +--------+---------+ + + + [...] COMPREHENSIVE OPHTHALMOLOGY PROGRESS NOTE pt: Reyna Farmer ([id number]) 32 y.o. female Assessment and Plan: exam date: 09/28/2017 Patient presents with: Vision Exam Impressions: Symptoms of floater due to vitreous syneresis and condensation -no PVD Emmetropic Plan: No Rx necessary. Discussed S/Sx RD, call PATITO, otherwise RTC 1 yr for medical exam, sooner PRN. Allison Naranjo, OD 09/28/2017 HPI: Reyna Farmer ([id number]) is a 32 y.o. year old female from [employer] Appointment notes at time progress note was opened: -*PD$190 SIGN [facility] IN DRAWER SELF PAY $ 190 wants DFE vision exam does not wear glasses or ctl jt patient aware we are not contracte d for medicaid [facility]. ok for self pay per mr. confirmed this is a vision exam only, not a medical exam Phone message preferences: There are no phone comments from demographics Chief Complaint: Patient presents with: Vision Exam Several floaters OS over the past 8 months in day time (noticed it when her son was playing football). No head trauma or eye trauma. She went to an sales team leader and they said she h ad normal floaters and then she went to an OD and they didn't even dilate her eyes but diagn osed with a PVD, then went to another sales team leader and they dilated and said it was [...] we are not contra cted for medicaid [facility]. ok for self pay per mr. confirmed [...] mouth once daily. EXAMINATION data is in [facility] ophthalmology Modules Assessment and Plan is now at the top of the note. Exam date: 09/28/2017 ALLISON NARANJO OD [facility], Department of Ophthalmology, [place] [address] tel. [phone] fax [phone] documented in this en counter Plan of Treatment Not on filedocumented as of this encounter Visit Diagnoses + + | Diagnosis | + + | Examination of eyes and vision - Primary | + + documented in this encounter"
--- OUTSIDE RECORDS SUMMARY | ~2020-01-15 | XMS | Encounter Summary ---
Demographics + + + | Address | [address] | | | [place] [address] | + + + | Home Phone [...] Team Providers + +------+ + | Care Freelance Makeup Artist Name | Role | Phone | + +------+ + | No Pcp Per Patient | PCP | Unavailable | + +------+ + Encounter Details +--------+ + + + + | Date | Type | Department | Care Team | Description | +--------+ + + + + | 05/14/ | Anesthesia | Preoperative | Jacqueline Edwards, | | | 2016 | Event | [facility] at | RN [place], [place] | | | | | [facility] | [address] | | | | | Stay [address] | | | | [address] | | | | | | Mailcode: [id number] | | | | | | [facility] [address] | | | | | | [address] [place], [place] | | | | | | [address] | | | | | | [phone] | | | +--------+ + + + [...]
--- OUTSIDE RECORDS SUMMARY | ~2020-01-15 | XMS | Encounter Summary ---
Demographics + + + | Address | [address] | | | [place] [address] | + + + | Home Phone | | + + + | Preferred Language | Unknown | + + + | Marital Status | Single | + + + | Oriental Orthodox Affiliation | 1041 | + + + | Race | Unknown | + + + | Ethnic Group | Unknown | + + + Author + + + | Author | Located Within [facility] | | | and [place] | + + + | Organization | Located Within [facility] | | [...] Team Providers + +------+ + | Care Turner And Former Automatic Name | Role | Phone | + +------+ + | Elmer Rangel MD | PCP | | + +------+ + Encounter Details +--------+ + + + + | Date | Type | Department | Care Team | Description | +--------+ + + + + | 11/19/ | Abstract | [facility] | [place], | | | 2019 | | GASTROENTEROLOGY | [address] | | | | | [address] | [address] | | | | | [address] | [place] [address] | | | | | [address] | | | | | | [phone] | | | +--------+ + + + [...] +--------+ + + + | EXTERNAL LAB: | Routin | 09/14/2019 | | Results for this | | VITAMIN D, | e | | | procedure are in the | | 25-HYDROXY | | | | results section. | + +--------+ + + + | EXTERNAL LAB: IRON | Routin | 09/14/2019 | | Results for this | | TOTAL | e | | | procedure are in the | | | | | | results section. | + +--------+ + + + | FOLATE | Routin | 09/14/2019 | | Results for this | | | e | | | procedure are in the | | | | | | results section. | + +--------+ + + + | EXTERNAL LAB: BUN | Routin | 09/13/2019 | | Results for this | | | e | | | procedure are in the | | | | | | results section. | + +--------+ + + + | EXTERNAL LAB: | Routin | 09/13/2019 | | Results for this | | GLUCOSE | e | | | procedure are in the | | | | | | results section. | + +--------+ + + + | EXTERNAL LAB: ALT | Routin | 09/13/2019 | | Results for this | | | e | | | procedure are in the | | | | | | results section. | + +--------+ + + + | EXTERNAL LAB: AST | Routin | 09/13/2019 | | Results for this | | | e | | | procedure are in the | | | | | | results section. | + +--------+ + + + | EXTERNAL LAB: | Routin | 09/13/2019 | | Results for this | | ALKALINE PHOSPHATASE | e | | | procedure are in the | | | | | | results section. | + +--------+ + + + | EXTERNAL LAB: | Routin | 09/13/2019 | | Results for this | | BILIRUBIN, TOTAL | e | | | procedure are in the | | | | | | results section. | + +--------+ + + + | EXTERNAL LAB: | Routin | 09/13/2019 | | Results for this | | ALBUMIN | e | | | procedure are in the | | | | | | results section. | + +--------+ + + + | EXTERNAL LAB: | Routin | 09/13/2019 | | Results for this | | PROTEIN, TOTAL | e | | | procedure are in the | | | | | | results section. | + +--------+ + + + | EXTERNAL LAB: | Routin | 09/13/2019 | | Results for this | | CALCIUM | e | | | procedure are in the | | | | | | results section. | + +--------+ + + + | EXTERNAL LAB: CARBON | Routin | 09/13/2019 | | Results for this | | DIOXIDE | e | | | procedure are in the | | | | | | results section. | + +--------+ + + + | EXTERNAL LAB: | Routin | 09/13/2019 | | Results for this | | CHLORIDE | e | | | procedure are in the | | | | | | results section. | + +--------+ + + + | EXTERNAL LAB: | Routin | 09/13/2019 | | Results for this | | POTASSIUM | e | | | procedure are in the | | | | | | results section. | + +--------+ + + + | EXTERNAL LAB: SODIUM | Routin | 09/13/2019 | | Results for this | | | e | | | procedure are in the | | | | | | results section. | + +--------+ + + + | EXTERNAL LAB: CBC | Routin | 09/13/2019 | | Results for this | | | e | | | procedure are in the | | | | | | results section. | + +--------+ + + + | EXTERNAL LAB: TSH | Routin | 09/13/2019 | | Results for this | | | e | | | procedure are in the | | | | | | results section. | + +--------+ + + + | EXTERNAL LAB: | Routin | 09/13/2019 | | Results for this | | TRIGLYCERIDES | e | | | procedure are in the | | | | | | results section. | + +--------+ + + + | EXTERNAL LAB: | Routin | 09/13/2019 | | Results for this | | CHOLESTEROL, HDL | e | | | procedure are in the | | | | | | results section. | + +--------+ + + + | EXTERNAL LAB: | Routin | 09/13/2019 | | Results for this | | CHOLESTEROL, TOTAL | e | | | procedure are in the | | | | | | results section. | + +--------+ + + + | EXTERNAL LAB: | Routin | 09/13/2019 | | Results for this | | CHOLESTEROL, LDL | e | | | procedure are in the | | | | | | results section. | + +--------+ + + + | EXTERNAL LAB: EGFR | Routin | 09/13/2019 | | Results for this | | | e | | | procedure are in the | | | | | | results section. | + +--------+ + + + | EXTERNAL LAB: | Routin | 09/13/2019 | | Results for this | | CREATININE | e | | | procedure are in the | | | | | | results section. | + +--------+ + + + | LIPID PANEL | Routin | 09/13/2019 | | Results for this | | | e | | | procedure are in the | | | | | | results section. | + +--------+ + + + | CBC WITH | Routin | 09/13/2019 | | Results for this | | DIFFERENTIAL | e | | | procedure are in the | | | | | | results section. | + +--------+ + + + | COMPREHENSIVE | Routin | 09/13/2019 | | Results for this | | METABOLIC PANEL | e | | | procedure are in the | | | | | | results section. | + +--------+ + + + documented in this encounter Results External Lab: Iron Total (09/14/2019) + +-------+ + + + | Component | Value | Ref Range | Performed | Pathologist | | | | | At | Signature | + +-------+ + + + | Iron, | 59 | 25 - 156 | EXTERNAL | | | External | | | LAB | | + +-------+ + + + + +---------+ + + | Performing | Address | City/State/Zipcode | Phone Number | | Organization | | | | + +---------+ + + | EXTERNAL LAB | | | | + +---------+ + + Vitamin B-12 and Folate (09/14/2019) + +-------+ + + + | Component | Value | Ref Range | Performed | Pathologist | | | | | At | Signature | + +-------+ + + + | Folate | 9.1 | 7.0 - 31.4 | | | | | | ng/mL | | | + +-------+ + + + | Vitamin B12 | 531 | 213 - 816 pg/mL | | | + +-------+ + + + + + | Specimen | + + | Blood | + + External Lab: Vitamin D, 25-Hydroxy (09/14/2019) + + + + + + | Component | Value | Ref Range | Performed | Pathologist | | | | | At | Signature | + + + + + + | Vitamin D, | 27.3 (A) | 30 - 40 | EXTERNAL | | | 25-Hydroxy, | | | LAB | | | External | | | | | + + + + + + + + | Specimen | + + | Blood | + + + +---------+ + + | Performing | Address | City/State/Zipcode | Phone Number | | Organization | | | | + +---------+ + + | EXTERNAL LAB | | | | + +---------+ + + CBC with Differential (09/13/2019) + +-------+ + + + | Component | Value | Ref Range | Performed | Pathologist | | | | | At | Signature | + +-------+ + + + | MCH | 27.7 | 25.0 - 34.0 pg | | | + +-------+ + + + | MCHC | 32.8 | 32.0 - 36.0 | | | | | | g/dL | | | + +-------+ + + + | % Basophils | 0.7 | 0.0 - 3.0 % | | | + +-------+ + + + + + | Specimen | + + | Blood | + + External Lab: CBC (09/13/2019) + + + + + + | Component | Value | Ref Range | Performed | Pathologist | | | | | At | Signature | + + + + + + | WBC, | 4.8 | 4.5 - 11 | EXTERNAL | | | External | | | LAB | | + + + + + + | HGB, | 11.25 (A) | 11.5 - 15.5 | EXTERNAL | | | External | | | LAB | | + + + + + + | HCT, | 34.1 (A) | 36 - 46 | EXTERNAL | | | External | | | LAB | | + + + + + + | PLT, | 228 | 150 - 450 | EXTERNAL | | | External | | | LAB | | + + + + + + | Neutrophils | 59.0 | 40 - 70 | EXTERNAL | | | %, | | | LAB | | | External | | | | | + + + + + + | Lymphocytes | 32.7 | 25 - 45 | EXTERNAL | | | %, | | | LAB | | | External | | | | | + + + + + + | Monocytes | 6.7 | 0 - 10 | EXTERNAL | | | %, External | | | LAB | | + + + + + + | Eosinophils | 0.9 | 0 - 3 | EXTERNAL | | | %, | | | LAB | | | External | | | | | + + + + + + | Neutrophils | 2.9 | 1.8 - 7.7 | EXTERNAL | | | , Absolute, | | | LAB | | | External | | | | | + + + + + + | Lymphocytes | 1.6 | 1 - 4.8 | EXTERNAL | | | , Absolute, | | | LAB | | | External | | | | | + + + + + + | Monocytes, | 0.3 | 0 - 0.8 | EXTERNAL | | | Absolute, | | | LAB | | | External | | | | | + + + + + + | Eosinophils | 0.0 | 0 - 0.45 | EXTERNAL | | | , Absolute | | | LAB | | + + + + + + | Basophils, | 0.0 | 0 - 0.2 | EXTERNAL | | | Absolute | | | LAB | | + + + + + + | RBC, | 4.0 (A) | 4.2 - 5.4 | EXTERNAL | | | External | | | LAB | | + + + + + + | MCV, | 85 | 80 - 100 | EXTERNAL | | | External | | | LAB | | + + + + + + | RDW, | 15.7 (A) | 11.5 - 15.5 | EXTERNAL | | | External | | | LAB | | + + + + + + + +---------+ + + | Performing | Address | City/State/Zipcode | Phone Number | | Organization | | | | + +---------+ + + | EXTERNAL LAB | | | | + +---------+ + + Comprehensive Metabolic Panel (09/13/2019) + +-------+ + + + | Component | Value | Ref Range | Performed | Pathologist | | | | | At | Signature | + +-------+ + + + | Anion Gap | 7 | 5 - 12 mmol/L | | | + +-------+ + + + | Globulin | 2.8 | 2.3 - 3.5 gm/dL | | | + +-------+ + + + | Albumin/[place] | 1.6 | 1.10 - 1.80 | | | | bulin Ratio | | Ratio | | | + +-------+ + + + + + | Specimen | + + | Blood | + + External Lab: MARINA (09/13/2019) + +-------+ + + + | Component | Value | Ref Range | Performed | Pathologist | | | | | At | Signature | + +-------+ + + + | BUN, | 13 | 7 - 18.7 | EXTERNAL | | | External | | | LAB | | + +-------+ + + + + +---------+ + + | Performing | Address | City/State/Zipcode | Phone Number | | Organization | | | | + +---------+ + + | EXTERNAL LAB | | | | + +---------+ + + External Lab: Glucose (09/13/2019) + +-------+ + + + | Component | Value | Ref Range | Performed | Pathologist | | | | | At | Signature | + +-------+ + + + | Glucose, | 95 | 84 - 110 | EXTERNAL | | | External | | | LAB | | + +-------+ + + + + +---------+ + + | Performing | Address | City/State/Zipcode | Phone Number | | Organization | | | | + +---------+ + + | EXTERNAL LAB | | | | + +---------+ + + External Lab: ALT (09/13/2019) + +---------+ + + + | Component | Value | Ref Range | Performed | Pathologist | | | | | At | Signature | + +---------+ + + + | ALT, | 123 (A) | 0 - 55 | EXTERNAL | | | External | | | LAB | | + +---------+ + + + + +---------+ + + | Performing | Address | City/State/Zipcode | Phone Number | | Organization | | | | + +---------+ + + | EXTERNAL LAB | | | | + +---------+ + + External Lab: AST (09/13/2019) + +--------+ + + + | Component | Value | Ref Range | Performed | Pathologist | | | | | At | Signature | + +--------+ + + + | AST, | 64 (A) | 5 - 34 | EXTERNAL | | | External | | | LAB | | + +--------+ + + + + +---------+ + + | Performing | Address | City/State/Zipcode | Phone Number | | Organization | | | | + +---------+ + + | EXTERNAL LAB | | | | + +---------+ + + External Lab: Alkaline Phosphatase (09/13/2019) + +-------+ + + + | Component | Value | Ref Range | Performed | Pathologist | | | | | At | Signature | + +-------+ + + + | ALP, | 79 | 40 - 150 | EXTERNAL | | | External | | | LAB | | + +-------+ + + + + +---------+ + + | Performing | Address | City/State/Zipcode | Phone Number | | Organization | | | | + +---------+ + + | EXTERNAL LAB | | | | + +---------+ + + External Lab: Bilirubin, Total (09/13/2019) + +-------+ + + + | Component | Value | Ref Range | Performed | Pathologist | | | | | At | Signature | + +-------+ + + + | Bilirubin, | 0.5 | 0.3 - 1.2 | EXTERNAL | | | Total, | | | LAB | | | External | | | | | + +-------+ + + + + +---------+ + + | Performing | Address | City/State/Zipcode | Phone Number | | Organization | | | | + +---------+ + + | EXTERNAL LAB | | | | + +---------+ + + External Lab: Albumin (09/13/2019) + +-------+ + + + | Component | Value | Ref Range | Performed | Pathologist | | | | | At | Signature | + +-------+ + + + | Albumin, | 4.5 | 3.5 - 5 | EXTERNAL | | | External | | | LAB | | + +-------+ + + + + +---------+ + + | Performing | Address | City/State/Zipcode | Phone Number | | Organization | | | | + +---------+ + + | EXTERNAL LAB | | | | + +---------+ + + External Lab: Protein, Total (09/13/2019) + +-------+ + + + | Component | Value | Ref Range | Performed | Pathologist | | | | | At | Signature | + +-------+ + + + | Protein, | 7.3 | 6 - 8 | EXTERNAL | | | Total, | | | LAB | | | External | | | | | + +-------+ + + + + +---------+ + + | Performing | Address | City/State/Zipcode | Phone Number | | Organization | | | | + +---------+ + + | EXTERNAL LAB | | | | + +---------+ + + External Lab: Calcium (09/13/2019) + +-------+ + + + | Component | Value | Ref Range | Performed | Pathologist | | | | | At | Signature | + +-------+ + + + | Calcium, | 9.9 | 8.2 - 10.6 | EXTERNAL | | | External | | | LAB | | + +-------+ + + + + +---------+ + + | Performing | Address | City/State/Zipcode | Phone Number | | Organization | | | | + +---------+ + + | EXTERNAL LAB | | | | + +---------+ + + External Lab: Carbon Dioxide (09/13/2019) + +-------+ + + + | Component | Value | Ref Range | Performed | Pathologist | | | | | At | Signature | + +-------+ + + + | Carbon | 28 | 22 - 32 | EXTERNAL | | | Dioxide, | | | LAB | | | External | | | | | + +-------+ + + + + +---------+ + + | Performing | Address | City/State/Zipcode | Phone Number | | Organization | | | | + +---------+ + + | EXTERNAL LAB | | | | + +---------+ + + External Lab: Chloride (09/13/2019) + +-------+ + + + | Component | Value | Ref Range | Performed | Pathologist | | | | | At | Signature | + +-------+ + + + | Chloride, | 107 | 98 - 107 | EXTERNAL | | | External | | | LAB | | + +-------+ + + + + +---------+ + + | Performing | Address | City/State/Zipcode | Phone Number | | Organization | | | | + +---------+ + + | EXTERNAL LAB | | | | + +---------+ + + External Lab: Potassium (09/13/2019) + +-------+ + + + | Component | Value | Ref Range | Performed | Pathologist | | | | | At | Signature | + +-------+ + + + | Potassium, | 4.0 | 3.5 - 4.5 | EXTERNAL | | | External | | | LAB | | + +-------+ + + + + +---------+ + + | Performing | Address | City/State/Zipcode | Phone Number | | Organization | | | | + +---------+ + + | EXTERNAL LAB | | | | + +---------+ + + External Lab: Sodium (09/13/2019) + +-------+ + + + | Component | Value | Ref Range | Performed | Pathologist | | | | | At | Signature | + +-------+ + + + | Sodium, | 142 | 136 - 145 | EXTERNAL | | | External | | | LAB | | + +-------+ + + + + +---------+ + + | Performing | Address | City/State/Zipcode | Phone Number | | Organization | | | | + +---------+ + + | EXTERNAL LAB | | | | + +---------+ + + External Lab: TSH (09/13/2019) + +-------+ + + + | Component | Value | Ref Range | Performed | Pathologist | | | | | At | Signature | + +-------+ + + + | TSH, | 0.74 | 0.35 - 4.94 | EXTERNAL | | | External | | | LAB | | + +-------+ + + + + + | Specimen | + + | Blood | + + + +---------+ + + | Performing | Address | City/State/Zipcode | Phone Number | | Organization | | | | + +---------+ + + | EXTERNAL LAB | | | | + +---------+ + + External Lab: eGFR (09/13/2019) + +-------+ + + + | Component | Value | Ref Range | Performed | Pathologist | | | | | At | Signature | + +-------+ + + + | eGFR, | >60 | 60 - 140 | EXTERNAL | | | External | | | LAB | | + +-------+ + + + + + | Specimen | + + | Blood | + + + +---------+ + + | Performing | Address | City/State/Zipcode | Phone Number | | Organization | | | | + +---------+ + + | EXTERNAL LAB | | | | + +---------+ + + External Lab: Creatinine (09/13/2019) + +-------+ + + + | Component | Value | Ref Range | Performed | Pathologist | | | | | At | Signature | + +-------+ + + + | Creatinine, | 0.74 | 0.44 - 1.03 | EXTERNAL | | | External | | | LAB | | + +-------+ + + + + + | Specimen | + + | Blood | + + + +---------+ + + | Performing | Address | City/State/Zipcode | Phone Number | | Organization | | | | + +---------+ + + | EXTERNAL LAB | | | | + +---------+ + + Lipid Panel (09/13/2019) + +-------+ + + + | Component | Value | Ref Range | Performed | Pathologist | | | | | At | Signature | + +-------+ + + + | Chol/HDL | 3.4 | 0.0 - 5.0 Ratio | | | | Ratio | | | | | + +-------+ + + + | Non HDL | 95 | 0 - 130 mg/dL | | | | Chol. | | | | | | (LDL+VLDL) | | | | | + +-------+ + + + | VLDL | 19 | 0 - 42 mg/dL | | | | Cholesterol | | | | | | Dagoberto | | | | | + +-------+ + + + + + | Specimen | + + | Blood | + + External Lab: Triglycerides (09/13/2019) + +-------+ + + + | Component | Value | Ref Range | Performed | Pathologist | | | | | At | Signature | + +-------+ + + + | Triglycerid | 99 | 30 - 150 | EXTERNAL | | | es, | | | LAB | | | External | | | | | + +-------+ + + + + + | Specimen | + + | Blood | + + + +---------+ + + | Performing | Address | City/State/Zipcode | Phone Number | | Organization | | | | + +---------+ + + | EXTERNAL LAB | | | | + +---------+ + + External Lab: Cholesterol, HDL (09/13/2019) + +-------+ + + + | Component | Value | Ref Range | Performed | Pathologist | | | | | At | Signature | + +-------+ + + + | HDL | 39 | 35 - 85 mg/dl | EXTERNAL | | | Cholesterol | | | LAB | | | , External | | | | | + +-------+ + + + + + | Specimen | + + | Blood | + + + +---------+ + + | Performing | Address | City/State/Zipcode | Phone Number | | Organization | | | | + +---------+ + + | EXTERNAL LAB | | | | + +---------+ + + External Lab: Cholesterol, Total (09/13/2019) + +-------+ + + + | Component | Value | Ref Range | Performed | Pathologist | | | | | At | Signature | + +-------+ + + + | Cholesterol | 134 | 0 - 200 mg/dl | EXTERNAL | | | , Total, | | | LAB | | | External | | | | | + +-------+ + + + + + | Specimen | + + | Blood | + + + +---------+ + + | Performing | Address | City/State/Zipcode | Phone Number | | Organization | | | | + +---------+ + + | EXTERNAL LAB | | | | + +---------+ + + External Lab: Cholesterol, LDL (09/13/2019) + +-------+ + + + | Component | Value | Ref Range | Performed | Pathologist | | | | | At | Signature | + +-------+ + + + | LDL | 75 | 0 - 130 | EXTERNAL | | | Cholesterol | | | LAB | | | , Direct, | | | | | | External | | | | | + +-------+ + + + + + | Specimen | + + | Blood | + + + +---------+ + + | Performing | Address | City/State/Zipcode | Phone Number | | Organization | | | | + +---------+ + + | EXTERNAL LAB | | | | + +---------+ + + documented in this encounter Visit Diagnoses Not on filedocumented in this encounter"
--- OUTSIDE RECORDS SUMMARY | ~2020-01-15 | XMS | Encounter Summary ---
Demographics + + + | Address | [address] | | | [place] [address] | + + + | Home Phone | | + + + | Preferred Language | Unknown | + + + | Marital Status | Single | + + + | Episcopalian Affiliation | CAT | + + + | Race | White | + + + | Ethnic Group | Not or | + + + Author + + + | Author | [facility] | + + + | Organization | [facility] | + + + | Address | Unknown | + + + | Phone | Unavailable | + + + Support + + +---------+ + | Name | Relationship | Address | Phone | + + +---------+ + | Mayito Shahid | ECON | Unknown | | + + +---------+ + Care Team Providers + +------+ + | Care Data Management Specialist Name | Role | Phone | [...] + + | 01/24/ | Emergency | [facility] Emergency | | | | 2011 | | Department [address] | | | | | [address] | | | | | | [facility] | | | | | | [place], [place] | | | | | | [address] | | | | | | [phone] | | | +--------+ + + + [...]
--- OUTSIDE RECORDS SUMMARY | ~2020-01-15 | XMS | Encounter Summary ---
Demographics + + + | Address | [address] | | | [place] [address] | + + + | Home Phone | | + + + | Preferred Language | Unknown | + + + | Marital Status | Single | + + + | Orthodoxy Affiliation | 1041 | + + + | Race | Unknown | + + + | Ethnic Group | Unknown | + + + Author + + + | Author | [facility] | | | and [place] | + + + | Organization | [facility] | | | and [...] Providers + +------+ + | Care Manager Wastewater Name | Role | Phone | + +------+ + | Elmer Rangel MD | PCP | | + +------+ + Encounter Details +--------+ + + + + | Date | Type | Department | Care Team | Description | +--------+ + + + + | 12/27/ | Imaging | [facility] | Provider, | | | 2019 | Exam | [facility] | [address] | | | | | IMAGING [address] | [address] | | | | | [address] | [place] [address] | | | | | [place] [address] | | | | | | [phone] | | | +--------+ + + + [...] + + documented in this encounter Results CT Abdomen w wo Contrast (12/04/2019 12:00 [...]
[~2020-01-15 12:49] MED LIST: PAROXETINE HCL10 MG PO; SERTRALINE HCL100 MG PO
--- NOTE | 2020-01-17 16:17 | EKG ---
[facility] [address] [place], [place] [address] Signed Sinus tachycardia Low voltage QRS Nonspecific T wave abnormality Abnormal ECG No previous ECGs available Confirmed by DONNA FRANCO DO ([id number]) on 01/17/2020 4:17:34 PM Electronically Signed By: DONNA FRANCO DO 01/17/20 1617 PATIENT NAME: DOWNING HI FUNES Electrocardiogram DATE OF : 87 PHYSICIAN: DONNA FRANCO DO REPORT #: [id number] REPORT IS CONFIDENTIAL AND NOT TO BE RELEASED WITHOUT AUTHORIZATION
== END 2020-01-15 14:15 | disposition left against medical advice (07) ==
LOC: ED 12:49
DX: Z53.21 Procedure and treatment not carried out due to patient leaving prior to being seen by health care provider (principal)
CPT/HCPCS: 93005; 93010

== ENCOUNTER 2021-08-03 11:38 | Emergency (ER) | payer OTHER ==
[~2021-08-03] VITALS: Ht 162.6 cm; Wt 63.5 kg
--- OUTSIDE RECORDS SUMMARY | 2021-08-03 11:46 | XMS ---
PreManage Notification: HI GARCIA Security Line Service Supervisor Events No recent Security Events currently on file CRITERIA MET - [facility] - 2 Visits in 30 Days - 6 ED Visits in 6 Months - [facility] - 3 Facilities in 90 Days CARE PROVIDERS Paolo Falk [facility] 03/20/2020-Current PHONE: Unknown Karri Sharpe Community Health Worker 04/21/2021-Current PHONE: [phone] KIA BROCK [facility] Current PHONE: Unknown Purnima has no Care Guidelines for this patient. E.D. VISIT COUNT (12 MO.) 13 [facility] 3 E[facility] 1 MEL [place] TOTAL 17 NOTE: Visits indicate total known visits. ED/UCC VISIT TRACKING (12 MO.) 08/03/2021 11:39 [facility] [place] TYPE: Emergency COMPLAINT: - FLU SYMPTOMS 07/26/2021 10:50 [facility] [place] TYPE: Emergency COMPLAINT: - COVID SYMPTOMS DIAGNOSES: - COVID SYMPTOMS 07/19/2021 18:48 [facility] [place] TYPE: Emergency DIAGNOSES: - COVID SCREENING - Acute upper respiratory infection, unspecified 07/16/2021 12:54 [facility] IN TYPE: Emergency COMPLAINT: - Cold_FEVER, CHILLS, HEADACHE - FEVER UNSPECIFIED - HEADACHE UNSPECIFIED - MYALGIA OTHER SITE DIAGNOSES: 0. Headache, unspecified 1. Viral infection, unspecified 5. CONTACT W/AND (SUSP) EXPOS COVID-19 07/15/2021 12:05 [facility] [place] TYPE: Emergency DIAGNOSES: - Viral infection, unspecified - FEVER - Contact with and (suspected) exposure to covid-19 07/13/2021 19:53 [facility] [place] TYPE: Emergency DIAGNOSES: - Encounter for screening for COVID-19 - COVID SCREENING 07/11/2021 09:35 [facility] [place] TYPE: Emergency DIAGNOSES: - SOTO FEVER SORE THROAT + SCREENING - Contact with and (suspected) exposure to covid-19 07/01/2021 18:36 [facility] IN TYPE: Emergency COMPLAINT: - Walk In_COUGH/COVID EXPOSURE - COUGH, UNSPECIFIED - HEADACHE UNSPECIFIED - ACUTE PHARYNGITIS UNSPECIFIED DIAGNOSES: 0. COUGH, UNSPECIFIED 1. COUGH, UNSPECIFIED 5. Headache, unspecified 6. Acute pharyngitis, unspecified 7. CONTACT W/AND (SUSP) EXPOS COVID-19 06/27/2021 13:19 [facility] [place] TYPE: Emergency DIAGNOSES: - Contact with and (suspected) exposure to covid-19 - SORE THROAT RUNNY NOSE LOSS OF SMELL COUGH 06/14/2021 10:00 [employer] OR TYPE: Emergency DIAGNOSES: - COVID 19 TEST SOTO FEVER SORE THROAT ABD PAIN - Viral infection, unspecified 05/24/2021 13:41 [facility] [place] TYPE: Emergency DIAGNOSES: - Trichomoniasis, unspecified - FEVER,SOB,HEADACHE - Other fatigue 04/17/2021 14:17 [employer] [place] TYPE: Emergency DIAGNOSES: - Contact with and (suspected) exposure to infections with a predominantly sexual mode of transmission - Dental caries, unspecified - Acute cystitis without hematuria - ABD CRAMPS FEVER SOTO LOSS OF TASTE AND SMELL 03/26/2021 09:37 [facility] DIAGNOSES: - Encounter for screening for COVID-19 - HEADACHE, CHEST PAIN 03/24/2021 11:10 [facility] [place] TYPE: Emergency DIAGNOSES: - SEVER HEADACHE, R EAR PAIN - Encounter for screening for COVID-19 03/23/2021 16:43 Ede [facility] IN TYPE: Emergency COMPLAINT: - Cough_COVID SYMPTOMS, SOTO, CHILLS, FEVER - FEVER UNSPECIFIED - HEADACHE UNSPECIFIED - OTALGIA BILATERAL DIAGNOSES: 0. Headache, unspecified 1. Headache, unspecified 5. Fever, unspecified 6. Otalgia, bilateral 7. CONTACT W \E\T\E\ (SUSP) EXPOS COVID-19 01/10/2021 05:59 [facility] [place] TYPE: Emergency DIAGNOSES: - MEDICAL CLEARANCEQ - Contusion of lip, initial encounter - Contusion of left upper arm, initial encounter 09/15/2020 19:19 [facility] [place] TYPE: Emergency DIAGNOSES: - ANXIETY - Panic disorder [episodic paroxysmal anxiety] INPATIENT VISIT TRACKING (12 MO.) No inpatient visits to display in this time frame [email or web address]
== END 2021-08-03 16:41 | disposition home or self-care (01) ==
LOC: ED 11:38
DX: B34.9 Viral infection, unspecified (principal); Z20.822 Contact with and (suspected) exposure to COVID-19; Z88.5 Allergy status to narcotic agent; Z88.8 Allergy status to other drugs, medicaments and biological substances
CPT/HCPCS: 99284; C9803; U0003

== ENCOUNTER 2022-09-29 07:42 | Emergency (ER) | payer OTHER ==
[~2022-09-29] VITALS: Ht 162.6 cm; Wt 62.5 kg
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
[2022-09-29] MEDS ORDERED: TYLENOL325 MG PO (07:57)
== END 2022-09-29 09:23 | disposition home or self-care (01) ==
LOC: ED 07:42
DX: J32.9 Chronic sinusitis, unspecified (principal); Z20.822 Contact with and (suspected) exposure to COVID-19; Z88.5 Allergy status to narcotic agent; Z88.8 Allergy status to other drugs, medicaments and biological substances
CPT/HCPCS: 87502; 99283; U0003

== ENCOUNTER 2023-04-06 09:14 | Emergency (ER) | payer OTHER ==
[~2023-04-06] VITALS: Ht 162.6 cm; Wt 63.0 kg
--- OUTSIDE RECORDS SUMMARY | ~2023-04-06 | XMS | Continuity of Care Document ---
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 | Role | Phone | + + + + Unavailable | Unavailable | + + + + Unavailable | Unavailable | + + + + Unavailable | Unavailable | + + + + Unavailable | Unavailable | + + + + Unavailable | Unavailable | + + + + Unavailable | Unavailable | + + + + Unavailable | Unavailable | + + + + Allergies and Intolerances + + + + + + | date | description | facility | reaction | severity | + + + + + + | (no date) | [facility] | [facility] | (no reaction) | (no severity) | | | | [facility] | | | | | | [facility] | | | | | | | | | + + + + + + | (no date) | K[facility] | [facility] | (no reaction) | (no severity) | | | | [facility] | | | | | | [facility] | | | | | | | | | + + + + + + | (no date) | CODEINE | [facility] | (no reaction) | (no severity) | | | | [facility] | | | | | | Medical | | | + + + + + + | (no date) | CODEINE | [facility] | (no reaction) | (no severity) | | | | [facility] | | | + + + + + + | (no date) | CODEINE | [facility] | (no reaction) | (no severity) | | | | [facility] | | | | | Computed | | | | | | Tomography | | | + + + + + + | (no date) | CODEINE | [facility] | (no reaction) | (no severity) | | | | [facility] | | | | | | Emergency | | | | | | Department | | | + + + + + + | (no date) | CODEINE | [facility] | (no reaction) | (no severity) | | | | [facility] | | | | | | [facility] | | | | | | | | | + + + + + + | (no date) | Hives | [facility] | (no reaction) | (no severity) | | | | [facility] | | | | | | Medical | | | + + + + + + | (no date) | Hives | [facility] | (no reaction) | (no severity) | | | | [facility] | | | + + + + + + | (no date) | Hives | [facility] | (no reaction) | (no severity) | | | | [facility] | | | | [facility] | | | | | | Tomography | | | + + + + + + | (no date) | Hives | [facility] | (no reaction) | (no severity) | | | | [facility] | [facility] | Emergency | | | | | | Department | | | + + + + + + | (no date) | PROMETHAZINE | [facility] | (no reaction) | (no severity) | | | | [facility] | | | | | | Medical | | | + + + + + + | (no date) | PROMETHAZINE | [facility] | (no reaction) | (no severity) | | | | [facility] | | | + + + + + + | (no date) | PROMETHAZINE | [facility] | (no reaction) | (no severity) | | | | [facility] | | | | | | Tomography | | | + + + + + + | (no date) | PROMETHAZINE | [facility] | (no reaction) | (no severity) | | | | [facility] | Emergency | | | | | | Department | | | + + + + + + | (no date) | PROMETHAZINE | [facility] | (no reaction) | (no severity) | | | | [facility] | | | | | | Medical | | | + + + + + + | (no date) | PROMETHAZINE | [facility] | (no reaction) | (no severity) | | | | [facility] | | | + + + + + + | (no date) | PROMETHAZINE | [facility] | (no reaction) | (no severity) | | | | [facility] | | | | | | Tomography | | | + + + + + + | (no date) | PROMETHAZINE | [facility] | (no reaction) | (no severity) | | | | [facility] | [facility] | | | | | | Department | | | + + + + + + | (no date) | KETOROLAC | [facility] | (no reaction) | (no severity) | | | | [facility] | | | | | | Medical | | | + + + + + + | (no date) | KETOROLAC | [facility] | (no reaction) | (no severity) | | | | [facility] | | | + + + + + + | (no date) | KETOROLAC | [facility] | (no reaction) | (no severity) | | | | [facility] | | | | | | Tomography | | | + + + + + + | (no date) | KETOROLAC | [facility] | (no reaction) | (no severity) | | | | [facility] | [facility] | | | | | | Department | | | + + + + + + | (no date) | CODEINE | [facility] | (no reaction) | (no severity) | | | | [facility] | | | | | | Medical | | | + + + + + + | (no date) | CODEINE | [facility] | (no reaction) | (no severity) | | | | [facility] | [facility] | | | + + + + + + | (no date) | CODEINE | [facility] | (no reaction) | (no severity) | | | | [facility] | | | | | | Tomography | | | + + + + + + | (no date) | CODEINE | [facility] | (no reaction) | (no severity) | | | | [facility] | Emergency | | | | | | Department | | | + + + + + + | (no date) | CODEINE | [facility] | (no reaction) | (no severity) | | | | [facility] | | | | | | Medical | | | + + + + + + | (no date) | CODEINE | [facility] | (no reaction) | (no severity) | | | | [facility] | [facility] | [facility] | | | + + + + + + | (no date) | CODEINE | [facility] | (no reaction) | (no severity) | | | | [facility] | | | | | | Tomography | | | + + + + + + | (no date) | CODEINE | [facility] | (no reaction) | (no severity) | | | | [facility] | | | | | | Department | | | + + + + + + | (no date) | Lorazepam | [facility] | (no reaction) | (no severity) | | | | [facility] | | | + + + + + + | (no date) | PROMETHAZINE | [facility] | (no reaction) | (no severity) | | | | [facility] | | | | | | Medical | | | + + + + + + | (no date) | PROMETHAZINE | [facility] | (no reaction) | (no severity) | | | | [facility] | | | + + + + + + | (no date) | PROMETHAZINE | [facility] | (no reaction) | (no severity) | | | | [facility] | | | | | | Tomography | | | + + + + + + | (no date) | PROMETHAZINE | [facility] | (no reaction) | (no severity) | | | | [facility] | | | | | | Department | | | + + + + + + | (no date) | CODEINE | [facility] | (no reaction) | (no severity) | | | | [facility] | | | | | | Medical | | | + + + + + + | (no date) | CODEINE | [facility] | (no reaction) | (no severity) | | | | [facility] | | | [facility] | [facility] | | | + + + + + + | (no date) | CODEINE | [facility] | (no reaction) | (no severity) | | | | [facility] | | | | | | Tomography | | | + + + + + + | (no date) | CODEINE | [facility] | (no reaction) | (no severity) | | | | [facility] | | | | | | Department | | | + + + + + + | (no date) | CODEINE | [facility] | (no reaction) | (no severity) | | | | [facility] | | | | | | Medical | | | + + + + + + | (no date) | CODEINE | [facility] | (no reaction) | (no severity) | | | | [facility] | | [facility] | [facility] | | | + + + + + + | (no date) | CODEINE | [facility] | (no reaction) | (no severity) | | | | [facility] | | | | | | Tomography | | | + + + + + + | (no date) | CODEINE | [facility] | (no reaction) | (no severity) | | | | [facility] | [facility] | | | | | | Department | | | + + + + + + | (no date) | CODEINE | [facility] | (no reaction) | (no severity) | | | | [facility] | | | | | | Medical | | | + + + + + + | (no date) | CODEINE | [facility] | (no reaction) | (no severity) | | | | [facility] | | | + + + + + + | (no date) | CODEINE | [facility] | (no reaction) | (no severity) | | | | [facility] | | | | | | Tomography | | | + + + + + + | (no date) | CODEINE | [facility] | (no reaction) | (no severity) | | | | [facility] | [facility] | | | | | | Department | | | + + + + + + | (no date) | PROMETHAZINE | [facility] | (no reaction) | (no severity) | | | | [facility] | | | | | | Medical | | | + + + + + + | (no date) | PROMETHAZINE | [facility] | (no reaction) | (no severity) | | | | [facility] | [facility] | | | + + + + + + | (no date) | PROMETHAZINE | [facility] | (no reaction) | (no severity) | | | | [facility] | | | | | | Tomography | | | + + + + + + | (no date) | PROMETHAZINE | [facility] | (no reaction) | (no severity) | | | | [facility] | | [facility] | | Emergency | | | | | | Department | | | + + + + + + | (no date) | Mild | [facility] | (no reaction) | (no severity) | | | | [facility] | | | | | | Medical | | | + + + + + + | (no date) | Mild | [facility] | (no reaction) | (no severity) | | | | [facility] | [facility] | | | + + + + + + | (no date) | Mild | [facility] | (no reaction) | (no severity) | | | | [facility] | | | | | | Tomography | | | + + + + + + | (no date) | Mild | [facility] | (no reaction) | (no severity) | | | | [facility] | [facility] | | | | | | Department | | | + + + + + + | (no date) | Mild | [facility] | (no reaction) | (no severity) | | | | [facility] | | | | | | [facility] | | | | | | | | | + + + + + + | (no date) | CODEINE | [facility] | (no reaction) | (no severity) | | | | [facility] | | | | | | Medical | | | + + + + + + | (no date) | CODEINE | [facility] | (no reaction) | (no severity) | | | | [facility] | | | | | [facility] | | | + + + + + + | (no date) | CODEINE | [facility] | (no reaction) | (no severity) | | | | [facility] | | | | [facility] | | | | | | Tomography | | | + + + + + + | (no date) | CODEINE | [facility] | (no reaction) | (no severity) | | | | [facility] | Emergency | | | | | | Department | | | + + + + + + | (no date) | CODEINE | [facility] | (no reaction) | (no severity) | | | | [facility] | | | | | | [facility] | | | | | | | | | + + + + + + | (no date) | Codeine | [facility] | (no reaction) | (no severity) | | | | [facility] | | | + + + + + + | (no date) | METOCLOPRAMIDE | [facility] | (no reaction) | (no severity) | | | | [facility] | | | | | | Medical | | | + + + + + + | (no date) | METOCLOPRAMIDE | [facility] | (no reaction) | (no severity) | | | | [facility] | | | | | | [facility] | | | + + + + + + | (no date) | METOCLOPRAMIDE | [facility] | (no reaction) | (no severity) | | | | [facility] | | | | | | Tomography | | | + + + + + + | (no date) | METOCLOPRAMIDE | [facility] | (no reaction) | (no severity) | | | | [facility] | | | [facility] | | Emergency | | | | | | Department | | | + + + + + + | (no date) | METOCLOPRAMIDE | [facility] | (no reaction) | (no severity) | | | | [facility] | | | | | | Medical | | | + + + + + + | (no date) | METOCLOPRAMIDE | [facility] | (no reaction) | (no severity) | | | | [facility] | | | | | [facility] | | | + + + + + + | (no date) | METOCLOPRAMIDE | [facility] | (no reaction) | (no severity) | | | | [facility] | [facility] | | | | | | Tomography | | | + + + + + + | (no date) | METOCLOPRAMIDE | [facility] | (no reaction) | (no severity) | | | | [facility] | | [facility] | [facility] | | | | | | Department | | | + + + + + + | (no date) | CODEINE | [facility] | (no reaction) | (no severity) | | | | [facility] | | | | | | Medical | | | + + + + + + | (no date) | CODEINE | [facility] | (no reaction) | (no severity) | | | | [facility] | | | | | [facility] | | | + + + + + + | (no date) | CODEINE | [facility] | (no reaction) | (no severity) | | | | [facility] | | | | | [facility] | | | | | | Tomography | | | + + + + + + | (no date) | CODEINE | [facility] | (no reaction) | (no severity) | | | | [facility] | | [facility] | [facility] | | | | | | Department | | | + + + + + + | (no date) | KETOROLAC | [facility] | (no reaction) | (no severity) | | | | [facility] | | | | | | Medical | | | + + + + + + | (no date) | KETOROLAC | [facility] | (no reaction) | (no severity) | | | | [facility] | | | | | | [facility] | | | + + + + + + | (no date) | KETOROLAC | [facility] | (no reaction) | (no severity) | | | | [facility] | | | [facility] | | | | | | Tomography | | | + + + + + + | (no date) | KETOROLAC | [facility] | (no reaction) | (no severity) | | | | [facility] | | | | | | Emergency | | | | | | Department | | | + + + + + + | (no date) | KETOROLAC | [facility] | (no reaction) | (no severity) | | | | [facility] | | | | | | Medical | | | + + + + + + | (no date) | KETOROLAC | [facility] | (no reaction) | (no severity) | | | | [facility] | | | | | [facility] | | | + + + + + + | (no date) | KETOROLAC | [facility] | (no reaction) | (no severity) | | | | [facility] | | | [facility] | | | | | | Tomography | | | + + + + + + | (no date) | KETOROLAC | [facility] | (no reaction) | (no severity) | | | | [facility] | | | | | | Emergency | | | | | | Department | | | + + + + + + | (no date) | KETOROLAC | [facility] | (no reaction) | (no severity) | | | | [facility] | | | | | | [facility] | | | | | | | | | + + + + + + | (no date) | Promethazine | [facility] | (no reaction) | (no severity) | | | | [facility] | | | + + + + + + | (no date) | Codeine | [facility] | (no reaction) | (no severity) | | | | [facility] | | | + + + + + + | (no date) | PROMETHAZINE | [facility] | (no reaction) | (no severity) | | | | [facility] | | | | | | Medical | | | + + + + + + | (no date) | PROMETHAZINE | [facility] | (no reaction) | (no severity) | | | | [facility] | | [facility] | [facility] | | | + + + + + + | (no date) | PROMETHAZINE | [facility] | (no reaction) | (no severity) | | | | [facility] | | | | | [facility] | | | | | | Tomography | | | + + + + + + | (no date) | PROMETHAZINE | [facility] | (no reaction) | (no severity) | | | | [facility] | | | | [facility] | Emergency | | | | | | Department | | | + + + + + + | (no date) | Anxiety | [facility] | (no reaction) | (no severity) | | | | [facility] | | | + + + + + + | (no date) | Anxiety | [facility] | (no reaction) | (no severity) | | | | [facility] | | | | | | [facility] | | | | | | | | | + + + + + + | (no date) | PROMETHAZINE | [facility] | (no reaction) | (no severity) | | | | [facility] | | | | | | Medical | | | + + + + + + | (no date) | PROMETHAZINE | [facility] | (no reaction) | (no severity) | | | | [facility] | | | | | | [facility] | | | + + + + + + | (no date) | PROMETHAZINE | [facility] | (no reaction) | (no severity) | | | | [facility] | | | | | [facility] | | | | | | Tomography | | | + + + + + + | (no date) | PROMETHAZINE | [facility] | (no reaction) | (no severity) | | | | [facility] | | | | | | Emergency | | | | | | Department | | | + + + + + + | (no date) | KETOROLAC | [facility] | (no reaction) | (no severity) | | | | [facility] | | | | | | Medical | | | + + + + + + | (no date) | KETOROLAC | [facility] | (no reaction) | (no severity) | | | | [facility] | | | | | [facility] | | | + + + + + + | (no date) | KETOROLAC | [facility] | (no reaction) | (no severity) | | | | [facility] | | | | [facility] | | | | | | Tomography | | | + + + + + + | (no date) | KETOROLAC | [facility] | (no reaction) | (no severity) | | | | [facility] | | | | | | Emergency | | | | | | Department | | | + + + + + + | (no date) | METOCLOPRAMIDE | [facility] | (no reaction) | (no severity) | | | | [facility] | | | | | | [facility] | | | | | | | | | + + + + + + | (no date) | [facility]AM | [facility] | (no reaction) | (no severity) | | | | [facility] | | | | | | [facility] | | | | | | | | | + + + + + + | (no date) | Lorazepam | [facility] | (no reaction) | (no severity) | | | | [facility] | | | + + + + + + | (no date) | METOCLOPRAMIDE | [facility] | (no reaction) | (no severity) | | | | [facility] | | | | | | Medical | | | + + + + + + | (no date) | METOCLOPRAMIDE | [facility] | (no reaction) | (no severity) | | | | [facility] | | | | | | [facility] | | | + + + + + + | (no date) | METOCLOPRAMIDE | [facility] | (no reaction) | (no severity) | | | | [facility] | | | | [facility] | | | | | | Tomography | | | + + + + + + | (no date) | METOCLOPRAMIDE | [facility] | (no reaction) | (no severity) | | | | [facility] | [facility] | [facility] | | | | | | Department | | | + + + + + + | (no date) | METOCLOPRAMIDE | [facility] | (no reaction) | (no severity) | | | | [facility] | | | | | | [facility] | | | | | | | | | + + + + + + | (no date) | Other (See | [facility] | (no reaction) | (no severity) | | | Comments) | [facility] | | | | | | [facility] | | | | | | | | | + + + + + + | (no date) | PROMETHAZINE | [facility] | (no reaction) | (no severity) | | | | [facility] | | | | | | Medical | | | + + + + + + | (no date) | PROMETHAZINE | [facility] | (no reaction) | (no severity) | | | | [facility] | | | + + + + + + | (no date) | PROMETHAZINE | [facility] | (no reaction) | (no severity) | | | | [facility] | | | | [facility] | | | | | | Tomography | | | + + + + + + | (no date) | PROMETHAZINE | [facility] | (no reaction) | (no severity) | | | | [facility] | | | | | | Emergency | | | | | | Department | | | + + + + + + | (no date) | PROMETHAZINE | [facility] | (no reaction) | (no severity) | | | | [facility] | | | | | | [facility] | | | | | | | | | + + + + + + | (no date) | Promethazine | [facility] | (no reaction) | (no severity) | | | | [facility] | | | + + + + + + | (no date) | CODEINE | [facility] | (no reaction) | (no severity) | | | | [facility] | | | | | | Medical | | | + + + + + + | (no date) | CODEINE | [facility] | (no reaction) | (no severity) | | | | [facility] | | | | | | [facility] | | | + + + + + + | (no date) | CODEINE | [facility] | (no reaction) | (no severity) | | | | [facility] | | | | | [facility] | | | | | | Tomography | | | + + + + + + | (no date) | CODEINE | [facility] | (no reaction) | (no severity) | | | | [facility] | | [facility] | [facility] | | | | | | Department | | | + + + + + + | (no date) | KETOROLAC | [facility] | (no reaction) | (no severity) | | | | [facility] | | | | | | Medical | | | + + + + + + | (no date) | KETOROLAC | [facility] | (no reaction) | (no severity) | | | | [facility] | | [facility] | [facility] | | | + + + + + + | (no date) | KETOROLAC | [facility] | (no reaction) | (no severity) | | | | [facility] | | | | [facility] | | | | | | Tomography | | | + + + + + + | (no date) | KETOROLAC | [facility] | (no reaction) | (no severity) | | | | [facility] | | | | | | [facility] | | | | | | Department | | | + + + + + + | (no date) | CODEINE | [facility] | (no reaction) | (no severity) | | | | [facility] | | | + + + + + + | (no date) | KETOROLAC | [facility] | (no reaction) | (no severity) | | | | [facility] | | | + + + + + + | (no date) | LORAZEPAM | [facility] | (no reaction) | (no severity) | | | | [facility] | | | + + + + + + | (no date) | METOCLOPRAMIDE | [facility] | (no reaction) | (no severity) | | | | [facility] | | | + + + + + + | (no date) | PROMETHAZINE | [facility] | (no reaction) | (no severity) | | | | [facility] | | | + + + + + + | (no date) | lorazepam | [facility] | (no reaction) | (no severity) | + + + + + + | (no date) | codeine | [facility] | (no reaction) | (no severity) | + + + + + + | (no date) | promethazine | [facility] | (no reaction) | (no severity) | + + + + + + | (no date) | PROMETHAZINE | [facility] | (no reaction) | (no severity) | | | | [facility] | | | | | | Medical | | | + + + + + + | (no date) | PROMETHAZINE | [facility] | (no reaction) | (no severity) | | | | [facility] | | [facility] | [facility] | | | + + + + + + | (no date) | PROMETHAZINE | [facility] | (no reaction) | (no severity) | | | | [facility] | | | | [facility] | | | | | | Tomography | | | + + + + + + | (no date) | PROMETHAZINE | [facility] | (no reaction) | (no severity) | | | | [facility] | | | | | | Emergency | | | | | | Department | | | + + + + + + | (no date) | PROMETHAZINE | [facility] | (no reaction) | (no severity) | | | | [facility] | | | | | | [facility] | | | | | | | | | + + + + + + | (no date) | Promethazine | [facility] | (no reaction) | (no severity) | | | | [facility] | | | + + + + + + | (no date) | METOCLOPRAMIDE | [facility] | (no reaction) | (no severity) | | | | [facility] | | | | | | Medical | | | + + + + + + | (no date) | METOCLOPRAMIDE | [facility] | (no reaction) | (no severity) | | | | [facility] | | | | | | [facility] | | | + + + + + + | (no date) | METOCLOPRAMIDE | [facility] | (no reaction) | (no severity) | | | | [facility] | [facility] | | | | | | Tomography | | | + + + + + + | (no date) | METOCLOPRAMIDE | [facility] | (no reaction) | (no severity) | | | | [facility] | | | | | | Emergency | | | | | | Department | | | + + + + + + | (no date) | Lorazepam | [facility] | (no reaction) | (no severity) | | | | [facility] | | | + + + + + + | (no date) | Other (See | [facility] | (no reaction) | (no severity) | | | Comments) | [facility] | | | | | | Medical | | | + + + + + + | (no date) | Other (See | [facility] | (no reaction) | (no severity) | | | Comments) | [facility] | | | | | | [facility] | | | + + + + + + | (no date) | Other (See | [facility] | (no reaction) | (no severity) | | | Comments) | [facility] | | | | | [facility] | | | | | | Tomography | | | + + + + + + | (no date) | Other (See | [facility] | (no reaction) | (no severity) | | | Comments) | [facility] | | | | | | Emergency | | | | | | Department | | | + + + + + + | (no date) | CODEINE | [facility] | (no reaction) | (no severity) | | | | [facility] | | | | | | Medical | | | + + + + + + | (no date) | CODEINE | [facility] | (no reaction) | (no severity) | | | | [facility] | | | | | | [facility] | | | + + + + + + | (no date) | CODEINE | [facility] | (no reaction) | (no severity) | | | | [facility] | | | [facility] | | | | | | Tomography | | | + + + + + + | (no date) | CODEINE | [facility] | (no reaction) | (no severity) | | | | [facility] | [facility] | [facility] | | | | | | Department | | | + + + + + + | (no date) | Codeine | [facility] | (no reaction) | (no severity) | | | | [facility] | | | + + + + + + | (no date) | KETOROLAC | [facility] | (no reaction) | (no severity) | | | | [facility] | | | | | | Medical | | | + + + + + + | (no date) | KETOROLAC | [facility] | (no reaction) | (no severity) | | | | [facility] | | | | | | [facility] | | | + + + + + + | (no date) | KETOROLAC | [facility] | (no reaction) | (no severity) | | | | [facility] | | | | | | Computed | | | | | | Tomography | | | + + + + + + | (no date) | [facility] | [facility] | (no reaction) | (no severity) | | | | [facility] | | | | | | Emergency | | | | | | Department | | | + + + + + + Encounters No information. Functional Status No information. Immunizations No information. Medications + + + + | date | description | facility | + + + + | 2021-08-07 00:00 | pseudoephedrine hcl 120 mg | [facility] | | | 12 hr extended release | Medical | | | oral tablet | | + + + + | 2021-09-02 00:00 | pseudoephedrine hcl 120 mg | [facility] | | | 12 hr extended release | Computed Tomography | | | oral tablet | | + + + + | 2021-09-04 00:00 | pseudoephedrine hcl 30 mg | [facility] | | | oral tablet | Medical | + + + + | 2021-09-04 00:00 | pseudoephedrine hcl 30 mg | [facility] | | | oral tablet | Clinical Lab | + + + + | 2021-09-04 00:00 | pseudoephedrine hcl 30 mg | [facility] | | | oral tablet | Emergency Department | + + + + | 2020-07-26 00:00 | biotin 5 mg disintegrating | [facility] | | | oral tablet | [facility] | + + + + | 2020-08-12 00:00 | biotin 5 mg disintegrating | [facility] | | | oral tablet | [facility] | + + + + | 2022-09-29 00:00 | PAROXETINE HCL | [facility] | + + + + | 2023-03-23 00:00 | PAROXETINE HCL | [facility] | + + + + | 2021-09-04 00:00 | azelastine hydrochloride | [facility] | | | 0.137 mg/actuat metered | Medical | | | dose nasal spray | | + + + + | 2021-09-04 00:00 | azelastine hydrochloride | [facility] | | | 0.137 mg/actuat metered | Clinical Lab | | | dose nasal spray | | + + + + | 2021-09-04 00:00 | azelastine hydrochloride | [facility] | | | 0.137 mg/actuat metered | Emergency Department | | | dose nasal spray | | + + + + | 2021-08-25 00:00 | fluconazole 100 mg oral | [facility] | | | tablet | Medical | + + + + | 2021-08-25 00:00 | fluconazole 100 mg oral | [facility] | | | tablet | Clinical Lab | + + + + | 2021-08-25 00:00 | fluconazole 100 mg oral | [facility] | | | tablet | Computed Tomography | + + + + | 2021-08-25 00:00 | fluconazole 100 mg oral | [facility] | | | tablet | Emergency Department | + + + + | 2021-12-27 00:00 | acetaminophen 500 mg oral | [facility] | | | tablet | Medical | + + + + | 2021-12-27 00:00 | acetaminophen 500 mg oral | [facility] | | | tablet | Clinical Lab | + + + + | 2021-12-27 00:00 | acetaminophen 500 mg oral | [facility] | | | tablet | Emergency Department | + + + + | 2020-07-26 00:00 | magnesium oxide 400 mg | [facility] | | | oral tablet | Specialties [facility] | + + + + | 2020-08-12 00:00 | magnesium oxide 400 mg | [facility] | | | oral tablet | Specialties [facility] | + + + + | 2021-08-25 00:00 | ascorbic acid 1000 mg oral | [facility] | | | tablet | Medical | + + + + | 2021-08-25 00:00 | ascorbic acid 1000 mg oral | [facility] | | | tablet | Clinical Lab | + + + + | 2021-08-25 00:00 | ascorbic acid 1000 mg oral | [facility] | | | tablet | Computed Tomography | + + + + | 2021-08-25 00:00 | ascorbic acid 1000 mg oral | [facility] | | | tablet | Emergency Department | + + + + | 2021-12-27 00:00 | ascorbic acid 1000 mg oral | [facility] | | | tablet | Medical | + + + + | 2021-12-27 00:00 | ascorbic acid 1000 mg oral | [facility] | | | tablet | Emergency Department | + + + + | 2020-07-26 00:00 | vitamin d3 1000 unt oral | [facility] | | | tablet | Specialties PS[facility] | + + + + | 2020-08-12 00:00 | vitamin d3 1000 unt oral | [facility] | | | tablet | Specialties PS[facility] | + + + + | 2021-08-25 00:00 | vitamin d3 1000 unt oral | [facility] | | | tablet | Medical | + + + + | 2021-08-25 00:00 | vitamin d3 1000 unt oral | [facility] | | | tablet | Clinical Lab | + + + + | 2021-08-25 00:00 | vitamin d3 1000 unt oral | [facility] | | | tablet | Computed Tomography | + + + + | 2021-08-25 00:00 | vitamin d3 1000 unt oral | [facility] | | | tablet | Emergency Department | + + + + | 2021-12-27 00:00 | vitamin d3 1000 unt oral | [facility] | | | tablet | Medical | + + + + | 2021-12-27 00:00 | vitamin d3 1000 unt oral | [facility] | | | tablet | Emergency Department | + + + + | 2021-08-11 00:00 | cefdinir 300 mg oral | [facility] | | | capsule | Medical | + + + + | 2020-07-26 00:00 | acquired hemolytic anemias | [facility] | | | | Specialties PS[facility] | + + + + | 2020-08-12 00:00 | acquired hemolytic anemias | [facility] | | | | Specialties PS[facility] | + + + + | 2020-07-26 00:00 | acquired hemolytic anemias | [facility] | | | | Specialties PS[facility] | + + + + | 2020-08-12 00:00 | acquired hemolytic anemias | [facility] | | | | Specialties [facility] | + + + + | 2021-09-04 00:00 | azithromycin 250 mg oral | [facility] | | | tablet | Medical | + + + + | 2021-09-04 00:00 | azithromycin 250 mg oral | [facility] | | | tablet | Clinical Lab | + + + + | 2021-09-04 00:00 | azithromycin 250 mg oral | [facility] | | | tablet | Emergency Department | + + + + | 2020-07-26 00:00 | ibuprofen 200 mg oral | [facility] | | | tablet | Specialties PS[facility] | + + + + | 2020-08-12 00:00 | ibuprofen 200 mg oral | [facility] | | | tablet | Specialties [facility] | + + + + | 2021-08-23 00:00 | nystatin 100,000 unt/ml | [facility] | | | oral suspension | Medical | + + + + | 2021-07-14 00:00 | prednisone 20 mg oral | [facility] | | | tablet | Medical | + + + + | 2021-07-14 00:00 | prednisone 20 mg oral | [facility] | | | tablet | Emergency Department | + + + + | 2021-12-27 00:00 | prednisone 20 mg oral | [facility] | | | tablet | Emergency Department | + + + + | 2022-09-29 00:00 | SERTRALINE HCL | [facility] | + + + + | 2023-03-23 00:00 | SERTRALINE HCL | [facility] | + + + + | 2021-08-15 00:00 | sertraline 50 mg oral | [facility] | | | tablet | Medical | + + + + | 2021-08-15 00:00 | sertraline 50 mg oral | [facility] | | | tablet | Clinical Lab | + + + + | 2021-08-15 00:00 | sertraline 50 mg oral | [facility] | | | tablet | Computed Tomography | + + + + | 2021-08-15 00:00 | sertraline 50 mg oral | [facility] | | | tablet | Emergency Department | + + + + | 2022-09-29 00:00 | ACETAMINOPHEN | [facility] | + + + + | 2023-03-23 00:00 | ACETAMINOPHEN | [facility] | + + + + | 2020-07-26 00:00 | acetaminophen 325 mg oral | [facility] | | | tablet | Specialties PS[facility] | + + + + | 2020-08-12 00:00 | acetaminophen 325 mg oral | [facility] | | | tablet | Specialties PS[facility] | + + + + | 2021-12-27 00:00 | Drug or medicament | [facility] | | | (substance) | Medical | + + + + | 2021-12-27 00:00 | Drug or medicament | [facility] | | | (substance) | Clinical Lab | + + + + | 2021-12-27 00:00 | Drug or medicament | [facility] | | | (substance) | Emergency Department | + + + + | 2021-07-14 00:00 | amoxicillin 875 mg / | [facility] | | | clavulanate 125 mg oral | Medical | | | tablet | | + + + + | 2021-07-14 00:00 | amoxicillin 875 mg / | [facility] | | | clavulanate 125 mg oral | Emergency Department | | | tablet | | + + + + | 2021-09-04 00:00 | {21 (Methylprednisolone 4 | [facility] | | | MG Oral Tablet) } Pack | Medical | + + + + | 2021-09-04 00:00 | {21 (Methylprednisolone 4 | [facility] | | | MG Oral Tablet) } Pack | Clinical Lab | + + + + | 2021-09-04 00:00 | {21 (Methylprednisolone 4 | [facility] | | | MG Oral Tablet) } Pack | Emergency Department | + + + + Problems + + + + | date | description | facility | + + + + | 2017-12-05 00:00 | Encounter for medical | [facility] | | | screening examination | | + + + + | 2017-12-05 00:00 | Encounter for medical | [facility] | | | screening examination | | + + + + | 2020-01-15 00:00 | Patient left without being | [facility] | | | seen | | + + + + | 2020-01-15 00:00 | Patient left without being | [facility] | | | seen | | + + + + | 2020-02-22 00:00 | neck ache | [facility] | | | | Medical | + + + + | 2020-02-22 00:00 | neck ache | [facility] | | | | Clinical Lab | + + + + | 2020-02-22 00:00 | neck ache | [facility] | | | | Computed Tomography | + + + + | 2020-02-22 00:00 | neck ache | [facility] | | | | Emergency Department | + + + + | 2020-02-22 00:00 | neck ache | [facility] | | | | Medical | + + + + | 2020-02-22 00:00 | neck ache | [facility] | | | | Emergency Department | + + + + | 2020-02-22 00:00 | Neck pain | [facility] | | | | Medical | + + + + | 2020-02-22 00:00 | Neck pain | [facility] | | | | Clinical Lab | + + + + | 2020-02-22 00:00 | Neck pain | [facility] | | | | Computed Tomography | + + + + | 2020-02-22 00:00 | Neck pain | [facility] | | | | Emergency Department | + + + + | 2020-02-22 00:00 | Neck pain | [facility] | | | | Medical | + + + + | 2020-02-22 00:00 | Neck pain | [facility] | | | | Emergency Department | + + + + | 2020-03-14 10:15:20 | Pain in unspecified joint | [facility] | + + + + | 2020-03-14 11:57:18 | Pain in unspecified joint | [facility] | + + + + | 2020-03-15 15:23:18 | Pain in unspecified joint | [facility] | + + + + | 2020-03-16 03:41:19 | Pain in unspecified joint | [facility] | + + + + | 2020-07-15 00:00 | numbness and tingling of | [facility] | | | skin | Specialties [facility] | + + + + | 2020-07-15 00:00 | Numbness and tingling | [facility] | | | | Specialties [facility] | + + + + | 2021-08-03 00:00 | Viral infection | [facility] | + + + + | 2021-08-03 00:00 | Viral infection | [facility] | + + + + | 2022-09-29 00:00 | Sinusitis | [facility] | + + + + | 2022-09-29 00:00 | Sinusitis | [facility] | + + + + | 2022-09-29 07:43 | CHRONIC SINUSITIS, | [facility] | | | UNSPECIFIED | | + + + + | 2022-09-29 07:43 | ALLERGY STATUS TO NARCOTIC | [facility] | | | AGENT STATUS | | + + + + | 2022-09-29 07:43 | ALLERGY STATUS TO OTH | [facility] | | | DRUG/MEDS/BIOL SUBST STATUS | | | | | | + + + + | 2023-03-23 21:21 | VIRAL INFECTION, | [facility] | | | UNSPECIFIED | | + + + + | 2023-03-23 21:21 | 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 | | | | (G35-G37) | | + + + + | 2023-03-23 21:21 | TACHYCARDIA, UNSPECIFIED | [facility] | + + + + | 2023-03-23 21:21 | NASAL CONGESTION | [facility] | + + + + | 2023-03-23 21:21 | ALLERGY STATUS TO NARCOTIC | [facility] | | | AGENT STATUS | | + + + + | 2023-03-23 21:21 | ALLERGY STATUS TO OTH | [facility] | | | DRUG/MEDS/BIOL SUBST STATUS | | | | | | + + + + Procedures + + + + | date | description | facility | + + + + | 2021-09-15 00:00 | SARS COV2 AB IGG - | [facility] | | | EXTERNAL | Clinical Lab | + + + + | 2021-08-06 00:00 | COVID-19 HGS (IN-HOUSE | [facility] | | | TEST)- EXTERNAL | Medical | + + + + | 2021-08-07 00:00 | COVID-19 HGS (IN-HOUSE | [facility] | | | TEST)- EXTERNAL | Medical | + + + + | 2021-08-12 00:00 | COVID-19 HGS (IN-HOUSE | [facility] | | | TEST)- EXTERNAL | Medical | + + + + | 2021-07-20 00:00 | COV2/FLUAB/RSV | [facility] | | | (XPERT)-EXTERNAL | Emergency Department | + + + + | 2021-09-18 00:00 | COV2/FLUAB/RSV | [facility] | | | (XPERT)-EXTERNAL | Medical | + + + + | 2021-09-25 00:00 | COV2/FLUAB/RSV | [facility] | | | (XPERT)-EXTERNAL | Emergency Department | + + + + | 2021-10-06 00:00 | COV2/FLUAB/RSV | [facility] | | | (XPERT)-EXTERNAL | Emergency Department | + + + + | 2021-09-02 00:00 | CT FACIAL BONES/MANDIBLE | [facility] | | | WO CONTRAST | Computed Tomography | + + + + Results/Labs +--------+--------+ +---------+--------+---------+ | test | date | facility | value | unit | notes | +--------+--------+ +---------+--------+---------+ + + | Result panel 1 | + + + + + + + + + | Specimen | (no date) | [facility] | (missing) | (missing) | (missing) | | collection | | [facility] | | | | | (procedure) | | [facility] | | | | | | | Emergency | | | | | | | Department | | | | + + + + + + + + + | Result panel 2 | + + + + + + + + + | Specimen | (no date) | [facility] | (missing) | (missing) | (missing) | | collection | | [facility] | | | | | (procedure) | | [facility] | | | | | | | Emergency | | | | | | | Department | | | | + + + + + + + + + | Result panel 3 | + + + + + + + + + | Specimen | (no date) | [facility] | (missing) | (missing) | (missing) | | collection | | Care / | | | | | (procedure) | | [facility] | | | | | | | Medical | | | | + + + + + + + + + | Result panel 4 | + + + + + + + + + | Specimen | (no date) | [facility] | (missing) | (missing) | (missing) | | collection | | Good | | | | | (procedure) | | [facility] | | | | | | | Emergency | | | | | | | Department | | | | + + + + + + + + + | Result panel 5 | + + + + + + + + + | Specimen | (no date) | [facility] | (missing) | (missing) | (missing) | | collection | | Care / | | | | | (procedure) | | [facility] | | | | | | | Medical | | | | + + + + + + + + + | Result panel 6 | + + + + + + + + + | Specimen | (no date) | [facility] | (missing) | (missing) | (missing) | | collection | | Good | | | | | (procedure) | | [facility] | | | | | | | Computed | | | | | | | Tomography | | | | + + + + + + + + + | Result panel 7 | + + + + + + + + + | Specimen | (no date) | [facility] | (missing) | (missing) | (missing) | | collection | | Care / | | | | | (procedure) | | [facility] | | | | | | | Medical | | | | + + + + + + + + + | Result panel 8 | + + + + + + + + + | Specimen | (no date) | [facility] | (missing) | (missing) | (missing) | | collection | | Care / | | | | | (procedure) | | [facility] | | | | | | | Medical | | | | + + + + + + + + + | Result panel 9 | + + + + + + + + + | Specimen | (no date) | [facility] | (missing) | (missing) | (missing) | | collection | | [facility] | | | | | (procedure) | | [facility] | | | | | | | Clinical Lab | | | | | | | | | | | + + + + + + + + + | Result panel 10 | + + + + + + + + + | FLU B - EXT | 2021-07-20 | [facility] | NEGATIVE | (missing) | (missing) | | | 04:11 | [facility] | | | | | | | [facility] | | | | | | | Emergency | | | | | | | Department | | | | + + + + + + + + + | Result panel 11 | + + + + + + + + + | RSV - EXT | 2021-07-20 | [facility] | NEGATIVE | (missing) | (missing) | | | 04:11 | [facility] | | | | | | | [facility] | | | | | | | Emergency | | | | | | | Department | | | | + + + + + + + + + | Result panel 12 | + + + + + + + + + | SARS-COV2 - | 2021-07-20 | [facility] | NEGATIVE | (missing) | (missing) | | EXT | 04:11 | [facility] | | | | | | | [facility] | | | | | | | Emergency | | | | | | | Department | | | | + + + + + + + + + | Result panel 13 | + + + + + + + + + | | 2021-07-20 | [facility] | (missing) | (missing) | (missing) | | (unavailable | 04:11 | [facility] | | | | | ) | | [facility] | | | | | | | Emergency | | | | | | | Department | | | | + + + + + + + + + | Result panel 14 | + + + + + + + + + | FLU A - EXT | 2021-07-20 | [facility] | NEGATIVE | (missing) | (missing) | | | 04:11 | [facility] | | | | | | | [facility] | | | | | | | Emergency | | | | | | | Department | | | | + + + + + + + + + | Result panel 15 | + + + + + + + + + | COVID - 19 | 2021-08-07 | [facility] | NEGATIVE | (missing) | (missing) | | [facility] - | 00:22 | Care / | | | | | External | | [facility] | | | | | | | Medical | | | | + + + + + + + + + | Result panel 16 | + + + + + +--------+ + + | COVID 19 | 2021-08-07 | [facility] | PASS | (missing) | (missing) | | Internal | 00:22 | Care / | | | | | Control - | | [facility] | | | | | External | | Medical | | | | + + + +--------+ + + + + | Result panel 17 | + + + + + + + + + | | 2021-08-07 | [facility] | (missing) | (missing) | (missing) | | (unavailable | 00:22 | Care / | | | | | ) | | [facility] | | | | | | | Medical | | | | + + + + + + + + + | Result panel 18 | + + + + + + + + + | COVID - 19 | 2021-08-07 | [facility] | NEGATIVE | (missing) | (missing) | | [facility] - | 23:35 | Care / | | | | | External | | [facility] | | | | | | | Medical | | | | + + + + + + + + + | Result panel 19 | + + + + + +--------+ + + | COVID | 2021-08-07 | [facility] | PASS | (missing) | (missing) | | Internal | 23:35 | Care / | | | | | Control - | | [facility] | | | | | External | | Medical | | | | + + + +--------+ + + + + | Result panel 20 | + + + + + + + + + | | 2021-08-07 | [facility] | (missing) | (missing) | (missing) | | (unavailable | 23:35 | Care / | | | | | ) | | [facility] | | | | | | | Medical | | | | + + + + + + + + + | Result panel 21 | + + + + + + + + + | COVID - 19 | 2021-08-12 | [facility] | NEGATIVE | (missing) | (missing) | | [facility] - | 01:40 | Care / | | | | | External | | [facility] | | | | | | | Medical | | | | + + + + + + + + + | Result panel 22 | + + + + + +--------+ + + | COVID | 2021-08-12 | [facility] | PASS | (missing) | (missing) | | Internal | 01:40 | Care / | | | | | Control - | | [facility] | | | | | External | | Medical | | | | + + + +--------+ + + + + | Result panel 23 | + + + + + + + + + | | 2021-08-12 | [facility] | (missing) | (missing) | (missing) | | (unavailable | 01:40 | Care / | | | | | ) | | [facility] | | | | | | | Medical | | | | + + + + + + + + + | Result panel 24 | + + + + + + + + + | | 2021-09-02 | [facility] | (missing) | (missing) | (missing) | | (unavailable | 21:14:04 | Good | | | | | ) | | [facility] | | | | | | | Computed | | | | | | | Tomography | | | | + + + + + + + + + | Result panel 25 | + + +--------+ + + + + + | Head | 2021-09-02 | [facility] | (missing) | (missing) | (missing) | | | 21:14:04 | [facility] | | | | | | | [facility] | | | | | | | Computed | | | | | | | Tomography | | | | +--------+ + + + + + + + | Result panel 26 | + + + + + + + + + | | 2021-09-02 | [facility] | (missing) | (missing) | (missing) | | (unavailable | 21:53:28 | [facility] | | | | | ) | | [facility] | | | | | | | Computed | | | | | | | Tomography | | | | + + + + + + + + + | Result panel 27 | + + + + + + + + + | | 2021-09-02 | [facility] | (missing) | (missing) | (missing) | | (unavailable | 21:53:28 | Good | | | | | ) | | [facility] | | | | | | | Computed | | | | | | | Tomography | | | | + + + + + + + + + | Result panel 28 | + + + + + +---------+ + + | SARS COV2 | 2021-09-17 | [facility] | <13.0 | (missing) | (missing) | | AB IGG | 04:51 | [facility] | | | | | | | [facility] | | | | | | | Clinical Lab | | | | | | | | | | | + + + +---------+ + + + + | Result panel 29 | + + + + + + + + + | SARS COV2 | 2021-09-17 | [facility] | Negative | (missing) | (missing) | | SPIKE AB | 04:51 | Good | | | | | INTERP | | [facility] | | | | | | | Clinical Lab | | | | | | | | | | | + + + + + + + + + | Result panel 30 | + + + + + + + + + | | 2021-09-17 | [facility] | (missing) | (missing) | (missing) | | (unavailable | 04:51 | Good | | | | | ) | | [facility] | | | | | | | Clinical Lab | | | | | | | | | | | + + + + + + + + + | Result panel 31 | + + + + + + + + + | FLU A - EXT | 2021-09-18 | [facility] | NEGATIVE | (missing) | (missing) | | | 21:23 | Care / | | | | | | | [facility] | | | | | | | Medical | | | | + + + + + + + + + | Result panel 32 | + + + + + + + + + | FLU B - EXT | 2021-09-18 | [facility] | NEGATIVE | (missing) | (missing) | | | 21:23 | Care / | | | | | | | [facility] | | | | | | | Medical | | | | + + + + + + + + + | Result panel 33 | + + + + + + + + + | RSV - EXT | 2021-09-18 | [facility] | NEGATIVE | (missing) | (missing) | | | 21:23 | Care / | | | | | | | [facility] | | | | | | | Medical | | | | + + + + + + + + + | Result panel 34 | + + + + + + + + + | SARS-COV2 - | 2021-09-18 | [facility] | NEGATIVE | (missing) | (missing) | | EXT | 21:23 | Care / | | | | | | | [facility] | | | | | | | Medical | | | | + + + + + + + + + | Result panel 35 | + + + + + + + + + | | 2021-09-18 | [facility] | (missing) | (missing) | (missing) | | (unavailable | 21:23 | Care / | | | | | ) | | [facility] | | | | | | | Medical | | | | + + + + + + + + + | Result panel 36 | + + + + + + + + + | FLU A - EXT | 2021-09-25 | [facility] | NEGATIVE | (missing) | (missing) | | | 02:07 | Good | | | | | | | [facility] | | | | | | | Emergency | | | | | | | Department | | | | + + + + + + + + + | Result panel 37 | + + + + + + + + + | FLU B - EXT | 2021-09-25 | [facility] | NEGATIVE | (missing) | (missing) | | | 02:07 | [facility] | | | | | | | [facility] | | | | | | | Emergency | | | | | | | Department | | | | + + + + + + + + + | Result panel 38 | + + + + + + + + + | RSV - EXT | 2021-09-25 | [facility] | NEGATIVE | (missing) | (missing) | | | 02:07 | [facility] | | | | | | | [facility] | | | | | | | Emergency | | | | | | | Department | | | | + + + + + + + + + | Result panel 39 | + + + + + + + + + | SARS-COV2 - | 2021-09-25 | [facility] | NEGATIVE | (missing) | (missing) | | EXT | 02:07 | [facility] | | | | | | | [facility] | | | | | | | Emergency | | | | | | | Department | | | | + + + + + + + + + | Result panel 40 | + + + + + + + + + | | 2021-09-25 | [facility] | (missing) | (missing) | (missing) | | (unavailable | 02:07 | Good | | | | | ) | | [facility] | | | | | | | Emergency | | | | | | | Department | | | | + + + + + + + + + | Result panel 41 | + + + + + + + + + | FLU A - EXT | 2021-10-06 | [facility] | NEGATIVE | (missing) | (missing) | | | 18:25 | [facility] | | | | | | | [facility] | | | | | | | Emergency | | | | | | | Department | | | | + + + + + + + + + | Result panel 42 | + + + + + + + + + | FLU B - EXT | 2021-10-06 | [facility] | NEGATIVE | (missing) | (missing) | | | 18:25 | [facility] | | | | | | | [facility] | | | | | | | Emergency | | | | | | | Department | | | | + + + + + + + + + | Result panel 43 | + + + + + + + + + | RSV - EXT | 2021-10-06 | [facility] | NEGATIVE | (missing) | (missing) | | | 18:25 | [facility] | | | | | | | [facility] | | | | | | | Emergency | | | | | | | Department | | | | + + + + + + + + + | Result panel 44 | + + + + + + + + + | SARS-COV2 - | 2021-10-06 | [facility] | NEGATIVE | (missing) | (missing) | | EXT | 18:25 | [facility] | | | | | | | [facility] | | | | | | | Emergency | | | | | | | Department | | | | + + + + + + + + + | Result panel 45 | + + + + + + + + + | | 2021-10-06 | [facility] | (missing) | (missing) | (missing) | | (unavailable | 18:25 | [facility] | | | | | ) | | [facility] | | | | | | | Emergency | | | | | | | Department | | | | + + + + + + + + + | Result panel 46 | + + + + + + + + + | | 2022-09-29 | [facility] | NEGATIVE | (missing) | (missing) | | (unavailable | 07:52:07 | [facility] | | | | + + + + + + + + + | Result panel 47 | + + + + + + + + + | | 2022-09-29 | [facility] | NEGATIVE | (missing) | (missing) | | (unavailable | 07:52:07 | [facility] | | | | + + + + + + + + + | Result panel 48 | + + + + + + + + + | | 2022-09-29 | [facility] | NEGATIVE | (missing) | (missing) | | (unavailable | 07:52:07 | [facility] | | | | + + + + + + + + + | Result panel 49 | + + + + + + + + + | | 2022-09-29 | [facility] | NEGATIVE | (missing) | (missing) | | (unavailable | 07:52:07 | [facility] | | | | + + + + + + + + + | Result panel 50 | + + + + + + + + + | | 2023-03-23 | [facility] | NEGATIVE | (missing) | (missing) | | (unavailable | 21:30:07 | [facility] | | | | + + + + + + + + + | Result panel 51 | + + + + + + + + + | | 2023-03-23 | [facility] | NEGATIVE | (missing) | (missing) | | (unavailable | 21:30:07 | [facility] | | | | + + + + + + + + + | Result panel 52 | + + + + + + + + + | | 2023-03-23 | [facility] | NEGATIVE | (missing) | (missing) | | (unavailable | 21:30:07 | [facility] | | | | + + + + + + + + + | Result panel 53 | + + + + + + + + + | | 2023-03-23 | [facility] | NEGATIVE | (missing) | (missing) | | (unavailable | 21:30:07 | [facility] | | | | + + + + + + + Social History + + + + | date | description | facility | + + + + | 2018-11-22 00:00 | Never smoked tobacco | [facility] | | | | Medical | + + + + | 2018-11-22 00:00 | Never smoked tobacco | [facility] | | | | Clinical Lab | + + + + | 2018-11-22 00:00 | Never smoked tobacco | [facility] | | | | Computed Tomography | + + + + | 2018-11-22 00:00 | Never smoked tobacco | [facility] | | | | Emergency Department | + + + + | 2018-11-22 00:00 | Never smoked tobacco | [facility] | | | | Medical | + + + + | 2018-11-22 00:00 | Never smoked tobacco | [facility] | | | | Emergency Department | + + + + | 2020-03-14 00:00 | Never smoker | [facility] | | | | [facility] | + + + + Vital Signs + + + +---------+ | date | measurement | value | units | + + + +---------+ | 2021-07-20 00:00 | BP_diastolic | 72 | mmHg | + + + +---------+ | 2021-07-20 00:00 | BP_systolic | 140 | mmHg | + + + +---------+ | 2021-07-20 00:00 | heart_rate | 97 | /min | + + + +---------+ | 2021-07-20 00:00 | height_metric | 162.6 | cm | + + + +---------+ | 2021-07-20 00:00 | height_standard | 64.02 | in | + + + +---------+ | 2021-07-20 00:00 | o2_saturation | 99 | % | + + + +---------+ | 2021-07-20 00:00 | respiration_rate | 20 | /min | + + + +---------+ | 2021-07-20 00:00 | temperature_metric | 36.78 | C | | | | | | + + + +---------+ | 2021-07-20 00:00 | | 98.2 | F | | | temperature_standar | | | | | d | | | + + + +---------+ | 2021-09-05 00:00 | BMI | 26.09 | kg/m2 | + + + +---------+ | 2021-09-05 00:00 | BP_diastolic | 107 | mmHg | + + + +---------+ | 2021-09-05 00:00 | BP_systolic | 140 | mmHg | + + + +---------+ | 2021-09-05 00:00 | heart_rate | 105 | /min | + + + +---------+ | 2021-09-05 00:00 | height_metric | 162.6 | cm | + + + +---------+ | 2021-09-05 00:00 | height_standard | 64.02 | in | + + + +---------+ | 2021-09-05 00:00 | o2_saturation | 98 | % | + + + +---------+ | 2021-09-05 00:00 | respiration_rate | 28 | /min | + + + +---------+ | 2021-09-05 00:00 | temperature_metric | 36.78 | C | | | | | | + + + +---------+ | 2021-09-05 00:00 | | 98.2 | F | | | temperature_standar | | | | | d | | | + + + +---------+ | 2021-09-05 00:00 | weight_metric | 68.95 | kg | + + + +---------+ | 2021-09-05 00:00 | weight_standard | 152 | lb | + + + +---------+ | 2021-09-25 00:00 | BMI | 27.33 | kg/m2 | + + + +---------+ | 2021-09-25 00:00 | BP_diastolic | 89 | mmHg | + + + +---------+ | 2021-09-25 00:00 | BP_systolic | 112 | mmHg | + + + +---------+ | 2021-09-25 00:00 | heart_rate | 116 | /min | + + + +---------+ | 2021-09-25 00:00 | height_metric | 162.6 | cm | + + + +---------+ | 2021-09-25 00:00 | height_standard | 64.02 | in | + + + +---------+ | 2021-09-25 00:00 | o2_saturation | 99 | % | + + + +---------+ | 2021-09-25 00:00 | respiration_rate | 18 | /min | + + + +---------+ | 2021-09-25 00:00 | temperature_metric | 36.5 | C | | | | | | + + + +---------+ | 2021-09-25 00:00 | | 97.7 | F | | | temperature_standar | | | | | d | | | + + + +---------+ | 2021-09-25 00:00 | weight_metric | 72.21 | kg | + + + +---------+ | 2021-09-25 00:00 | weight_standard | 159.2 | lb | + + + +---------+ | 2021-10-06 00:00 | BP_diastolic | 74 | mmHg | + + + +---------+ | 2021-10-06 00:00 | BP_systolic | 118 | mmHg | + + + +---------+ | 2021-10-06 00:00 | heart_rate | 129 | /min | + + + +---------+ | 2021-10-06 00:00 | height_metric | 162.6 | cm | + + + +---------+ | 2021-10-06 00:00 | height_standard | 64.02 | in | + + + +---------+ | 2021-10-06 00:00 | o2_saturation | 99 | % | + + + +---------+ | 2021-10-06 00:00 | respiration_rate | 14 | /min | + + + +---------+ | 2021-10-06 00:00 | temperature_metric | 37 | C | | | | | | + + + +---------+ | 2021-10-06 00:00 | | 98.6 | F | | | temperature_standar | | | | | d | | | + + + +---------+ | 2022-09-29 00:00 | BMI | 23.7 | kg/m2 | + + + +---------+ | 2022-09-29 00:00 | BP_diastolic | 72 | mmHg | + + + +---------+ | 2022-09-29 00:00 | BP_systolic | 116 | mmHg | + + + +---------+ | 2022-09-29 00:00 | heart_rate | 103 | /min | + + + +---------+ | 2022-09-29 00:00 | height_metric | 162.56 | cm | + + + +---------+ | 2022-09-29 00:00 | height_standard | 64 | in | + + + +---------+ | 2022-09-29 00:00 | o2_saturation | 99 | % | + + + +---------+ | 2022-09-29 00:00 | respiration_rate | 14 | /min | + + + +---------+ | 2022-09-29 00:00 | temperature_metric | 36.5 | C | | | | | | + + + +---------+ | 2022-09-29 00:00 | | 97.7 | F | | | temperature_standar | | | | | d | | | + + + +---------+ | 2022-09-29 00:00 | weight_metric | 62.5 | kg | + + + +---------+ | 2022-09-29 00:00 | weight_metric | 62.51 | kg | + + + +---------+ | 2022-09-29 00:00 | weight_standard | 137.79 | lb | + + + +---------+ | 2022-09-29 00:00 | weight_standard | 137.8 | lb | + + + +---------+ | 2023-03-23 00:00 | BMI | 23.7 | kg/m2 | + + + +---------+ | 2023-03-23 00:00 | BP_diastolic | 78 | mmHg | + + + +---------+ | 2023-03-23 00:00 | BP_systolic | 109 | mmHg | + + + +---------+ | 2023-03-23 00:00 | heart_rate | 90 | /min | + + + +---------+ | 2023-03-23 00:00 | height_metric | 162.56 | cm | + + + +---------+ | 2023-03-23 00:00 | height_standard | 64 | in | + + + +---------+ | 2023-03-23 00:00 | o2_saturation | 100 | % | + + + +---------+ | 2023-03-23 00:00 | respiration_rate | 22 | /min | + + + +---------+ | 2023-03-23 00:00 | temperature_metric | 37.11 | C | | | | | | + + + +---------+ | 2023-03-23 00:00 | | 98.8 | F | | | temperature_standar | | | | | d | | | + + + +---------+ | 2023-03-23 00:00 | weight_metric | 62.51 | kg | + + + +---------+ | 2023-03-23 00:00 | weight_standard | 137.8 | lb | + + + +---------+"
--- OUTSIDE RECORDS SUMMARY | ~2023-04-06 | XMS | Continuity of Care Document ---
Demographics + + + | Address | [address] [place] [address] [place] | | | [place] [address] | + + + | Preferred Language | Unknown | + + + | Marital Status | Never | + + + | Mandaen Affiliation | Unknown | + + + | Race | Unknown | + + + | Ethnic Group | or | + + + Author + + + | Author | [facility] | + + + | Organization | [facility] | + + + | Address | [address] [facility] [address] | | | [place] [address] | + + + | Phone | | + + + Care Team Providers + + + + | Care Head Of Conservation Name | Role | Phone | + [...] + | (no date) | LORAZEPAM | [facility] | (no reaction) | (no severity) | | | | Neurological | | | | | | Specialties [facility] | | | | | | | | | + + + + + + | (no date) | KETOROLAC | [facility] | (no reaction) | (no severity) | [...] + | (no date) | CODEINE | [facility] | (no reaction) | (no severity) | | | | [facility] | | | | | | Emergency | | | | | | Department | | | + + + + + + | (no date) | CODEINE | [facility] | (no reaction) | (no severity) | | | | Neurological | | | | | | Specialties [facility] | | | | | | | | | + + + + + + | (no date) | Hives | [facility] | (no reaction) | (no severity) | | | | [facility] / [place] | | | | | | Medical | | | + + + + + + | (no date) | Hives | [facility] | (no reaction) | (no severity) | | | | [facility] | | | | | | Clinical Lab | | | + + + + + + | (no date) | Hives | [facility] | (no reaction) | (no severity) | | | | [facility] | | | | | | Computed | | | | | | Tomography | | | + + + + + + | (no date) | Hives | [facility] | (no reaction) | (no severity) [...] + | (no date) | PROMETHAZINE | [facility] | (no reaction) | (no severity) | | | | [facility] | | | | | | Clinical Lab | | | + + + + + + | (no date) | PROMETHAZINE | [facility] | (no reaction) | (no severity) | | | | [facility] | | | | | | Computed | | | | | | Tomography | | | + + + + + + | (no date) | PROMETHAZINE | [facility] | (no reaction) | (no severity) [...] + | (no date) | PROMETHAZINE | [facility] | (no reaction) | (no severity) | | | | [facility] | | | | | | Clinical Lab | | | + + + + + + | (no date) | PROMETHAZINE | [facility] | (no reaction) | (no severity) | | | | [facility] | | | | | | Computed | | | | | | Tomography | | | + + + + + + | (no date) | PROMETHAZINE | [facility] | (no reaction) | (no severity) | | | | [facility] | | | | | | Emergency | | | | | | Department | | | + + + + + + | (no date) | KETOROLAC | [facility] | (no reaction) | (no severity) | | | | [facility] / [place] | | | | | | Medical | | | + + + + + + | (no date) | KETOROLAC | [facility] | (no reaction) | (no severity) | | | | [facility] | | | | | | Clinical Lab | | | + + + + + + | (no date) | KETOROLAC | [facility] | (no reaction) | (no severity) | | | | [facility] | | | | | | Computed | | | | | | Tomography | | | + + + + + + | (no date) | KETOROLAC | [facility] | (no reaction) | (no severity) | | | | [facility] | | | | | | Emergency | | | | | | Department | | | + + + + + + | (no date) | CODEINE | [facility] | (no reaction) | (no severity) | | | | [facility] / [place] | | | | | | Medical | | | + + + + + + | (no date) | CODEINE | [facility] | (no reaction) | (no severity) | | | | [facility] | | | | | | Clinical Lab | | | + + + + + + | (no date) | CODEINE | [facility] | (no reaction) | (no severity) | | | | [facility] | | | | | | Computed | | | | | | Tomography | | | + + + + + + | (no date) | CODEINE | [facility] | (no reaction) | (no severity) | | | | [facility] | | | | | | Emergency | | | | | | Department | | | + + + + + + | (no date) | CODEINE | [facility] | (no reaction) | (no severity) | | | | [facility] / [place] | | | | | | Medical | | | + + + + + + | (no date) | CODEINE | [facility] | (no reaction) | (no severity) | | | | [facility] | | | | | | Clinical Lab | | | + + + + + + | (no date) | CODEINE | [facility] | (no reaction) | (no severity) | | | | [facility] | | | | | | Computed | | | | | | Tomography | | | + + + + + + | (no date) | CODEINE | [facility] | (no reaction) | (no severity) [...] + | (no date) | PROMETHAZINE | [facility] | (no reaction) | (no severity) | | | | [facility] | | | | | | Clinical Lab | | | + + + + + + | (no date) | PROMETHAZINE | [facility] | (no reaction) | (no severity) | | | | [facility] | | | | | | Computed | | | | | | Tomography | | | + + + + + + | (no date) | PROMETHAZINE | [facility] | (no reaction) | (no severity) [...] + | (no date) | CODEINE | [facility] | (no reaction) | (no severity) | | | | [facility] | | | | | | Emergency | | | | | | Department | | | + + + + + + | (no date) | CODEINE | [facility] | (no reaction) | (no severity) | | | | [facility] / [place] | | | | | | Medical | | | + + + + + + | (no date) | CODEINE | [facility] | (no reaction) | (no severity) | | | | [facility] | | | | | | Clinical Lab | | | + + + + + + | (no date) | CODEINE | [facility] | (no reaction) | (no severity) | | | | [facility] | | | | | | Computed | | | | | | Tomography | | | + + + + + + | (no date) | CODEINE | [facility] | (no reaction) | (no severity) | | | | [facility] | | | | | | Emergency | | | | | | Department | | | + + + + + + | (no date) | CODEINE | [facility] | (no reaction) | (no severity) | | | | [facility] / [place] | | | | | | Medical | | | + + + + + + | (no date) | CODEINE | [facility] | (no reaction) | (no severity) | | | | [facility] | | | | | | Clinical Lab | | | + + + + + + | (no date) | CODEINE | [facility] | (no reaction) | (no severity) | | | | [facility] | | | | | | Computed | | | | | | Tomography | | | + + + + + + | (no date) | CODEINE | [facility] | (no reaction) | (no severity) [...] + | (no date) | PROMETHAZINE | [facility] | (no reaction) | (no severity) | | | | [facility] | | | | | | Clinical Lab | | | + + + + + + | (no date) | PROMETHAZINE | [facility] | (no reaction) | (no severity) | | | | [facility] | | | | | | Computed | | | | | | Tomography | | | + + + + + + | (no date) | PROMETHAZINE | [facility] | (no reaction) | (no severity) [...] + | (no date) | Mild | [facility] | (no reaction) | (no severity) | | | | [facility] | | | | | | Clinical Lab | | | + + + + + + | (no date) | Mild | [facility] | (no reaction) | (no severity) | | | | [facility] | | | | | | Computed | | | | | | Tomography | | | + + + + + + | (no date) | Mild | [facility] | (no reaction) | (no severity) | | | | [facility] | | | | | | Emergency | | | | | | Department | | | + + + + + + | (no date) | Mild | [facility] | (no reaction) | (no severity) | [...] + | (no date) | CODEINE | [facility] | (no reaction) | (no severity) [...] + | (no date) | CODEINE | [facility] | (no reaction) | (no severity) | [...] + | (no date) | METOCLOPRAMIDE | [facility] | (no reaction) | (no severity) | | | | [facility] | | | | | | Clinical Lab | | | + + + + + + | (no date) | METOCLOPRAMIDE | [facility] | (no reaction) | (no severity) | | | | [facility] | | | | | | Computed | | | | | | Tomography | | | + + + + + + | (no date) | METOCLOPRAMIDE | [facility] | (no reaction) | (no severity) | | | | [facility] | | | | | | Emergency | | | | | | Department | | | + + + + + + | (no date) | METOCLOPRAMIDE | [facility] | (no reaction) | (no severity) | | | | [facility] / [place] | | | | | | Medical | | | + + + + + + | (no date) | METOCLOPRAMIDE | [facility] | (no reaction) | (no severity) | | | | [facility] | | | | | | Clinical Lab | | | + + + + + + | (no date) | METOCLOPRAMIDE | [facility] | (no reaction) | (no severity) | | | | [facility] | | | | | | Computed | | | | | | Tomography | | | + + + + + + | (no date) | METOCLOPRAMIDE | [facility] | (no reaction) | (no severity) | | | | [facility] | | | | | | Emergency | | | | | | Department | | | + + + + + + | (no date) | CODEINE | [facility] | (no reaction) | (no severity) | | | | [facility] / [place] | | | | | | Medical | | | + + + + + + | (no date) | CODEINE | [facility] | (no reaction) | (no severity) | | | | [facility] | | | | | | Clinical Lab | | | + + + + + + | (no date) | CODEINE | [facility] | (no reaction) | (no severity) | | | | [facility] | | | | | | Computed | | | | | | Tomography | | | + + + + + + | (no date) | CODEINE | [facility] | (no reaction) | (no severity) | | | | [facility] | | | | | | Emergency | | | | | | Department | | | + + + + + + | (no date) | KETOROLAC | [facility] | (no reaction) | (no severity) | | | | [facility] / [place] | | | | | | Medical | | | + + + + + + | (no date) | KETOROLAC | [facility] | (no reaction) | (no severity) | | | | [facility] | | | | | | Clinical Lab | | | + + + + + + | (no date) | KETOROLAC | [facility] | (no reaction) | (no severity) | | | | [facility] | | | | | | Computed | | | | | | Tomography | | | + + + + + + | (no date) | KETOROLAC | [facility] | (no reaction) | (no severity) [...] + | (no date) | KETOROLAC | [facility] | (no reaction) | (no severity) | | | | [facility] | | | | | | Clinical Lab | | | + + + + + + | (no date) | KETOROLAC | [facility] | (no reaction) | (no severity) | | | | [facility] | | | | | | Computed | | | | | | Tomography | | | + + + + + + | (no date) | KETOROLAC | [facility] | (no reaction) | (no severity) | | | | [facility] | | | | | | Emergency | | | | | | Department | | | + + + + + + | (no date) | KETOROLAC | [facility] | (no reaction) | (no severity) | [...] severity) | | | | [facility] / [place] | | | | | | Medical | | | + + + + + + | (no date) | PROMETHAZINE | [facility] | (no reaction) | (no severity) | | | | [facility] | | | | | | Clinical Lab | | | + + + + + + | (no date) | PROMETHAZINE | [facility] | (no reaction) | (no severity) | | | | [facility] | | | | | | Computed | | | | | | Tomography | | | + + + + + + | (no date) | PROMETHAZINE | [facility] | (no reaction) | (no severity) [...] + | (no date) | Anxiety | [facility] | (no reaction) | (no severity) | [...] + | (no date) | PROMETHAZINE | [facility] | (no reaction) | (no severity) | | | | [facility] | | | | | | Clinical Lab | | | + + + + + + | (no date) | PROMETHAZINE | [facility] | (no reaction) | (no severity) | | | | [facility] | | | | | | Computed | | | | | | Tomography | | | + + + + + + | (no date) | PROMETHAZINE | [facility] | (no reaction) | (no severity) | | | | [facility] | | | | | | Emergency | | | | | | Department | | | + + + + + + | (no date) | KETOROLAC | [facility] | (no reaction) | (no severity) | | | | [facility] / [place] | | | | | | Medical | | | + + + + + + | (no date) | KETOROLAC | [facility] | (no reaction) | (no severity) | | | | [facility] | | | | | | Clinical Lab | | | + + + + + + | (no date) | KETOROLAC | [facility] | (no reaction) | (no severity) | | | | [facility] | | | | | | Computed | | | | | | Tomography | | | + + + + + + | (no date) | KETOROLAC | [facility] | (no reaction) | (no severity) | | | | [facility] | | | | | | Emergency | | | | | | Department | | | + + + + + + | (no date) | METOCLOPRAMIDE | [facility] | (no reaction) | (no severity) | | | | Neurological | | | | | | Specialties [facility] | | | | | | | | | + + + + + + | (no date) | LORAZEPAM | [facility] | (no reaction) | (no severity) | [...] + | (no date) | METOCLOPRAMIDE | [facility] | (no reaction) | (no severity) | | | | [facility] | | | | | | Clinical Lab | | | + + + + + + | (no date) | METOCLOPRAMIDE | [facility] | (no reaction) | (no severity) | | | | [facility] | | | | | | Computed | | | | | | Tomography | | | + + + + + + | (no date) | METOCLOPRAMIDE | [facility] | (no reaction) | (no severity) | | | | [facility] | | | | | | Emergency | | | | | | Department | | | + + + + + + | (no date) | METOCLOPRAMIDE | [facility] | (no reaction) | (no severity) | | | | Neurological | | | | | | Specialties [facility] | | | | | | | | | + + + + + + | (no date) | Other (See | [facility] | (no reaction) | (no severity) | | | Comments) | Neurological | | | | | | Specialties [facility] | | | | | | | | | + + + + + + | (no date) | PROMETHAZINE | [facility] | (no reaction) | (no severity) | | | | [facility] / [place] | | | | | | Medical | | | + + + + + + | (no date) | PROMETHAZINE | [facility] | (no reaction) | (no severity) | | | | [facility] | | | | | | Clinical Lab | | | + + + + + + | (no date) | PROMETHAZINE | [facility] | (no reaction) | (no severity) | | | | [facility] | | | | | | Computed | | | | | | Tomography | | | + + + + + + | (no date) | PROMETHAZINE | [facility] | (no reaction) | (no severity) | | | | [facility] | | | | | | Emergency | | | | | | Department | | | + + + + + + | (no date) | PROMETHAZINE | [facility] | (no reaction) | (no severity) | [...] severity) | | | | [facility] / [place] | | | | | | Medical | | | + + + + + + | (no date) | CODEINE | [facility] | (no reaction) | (no severity) | | | | [facility] | | | | | | Clinical Lab | | | + + + + + + | (no date) | CODEINE | [facility] | (no reaction) | (no severity) | | | | [facility] | | | | | | Computed | | | | | | Tomography | | | + + + + + + | (no date) | CODEINE | [facility] | (no reaction) | (no severity) [...] + | (no date) | KETOROLAC | [facility] | (no reaction) | (no severity) | | | | [facility] | | | | | | Clinical Lab | | | + + + + + + | (no date) | KETOROLAC | [facility] | (no reaction) | (no severity) | | | | [facility] | | | | | | Computed | | | | | | Tomography | | | + + + + + + | (no date) | KETOROLAC | [facility] | (no reaction) | (no severity) [...] severity) | | | | [facility] / [place] | | | | | | Medical | | | + + + + + + | (no date) | PROMETHAZINE | [facility] | (no reaction) | (no severity) | | | | [facility] | | | | | | Clinical Lab | | | + + + + + + | (no date) | PROMETHAZINE | [facility] | (no reaction) | (no severity) | | | | [facility] | | | | | | Computed | | | | | | Tomography | | | + + + + + + | (no date) | PROMETHAZINE | [facility] | (no reaction) | (no severity) | | | | [facility] | | | | | | Emergency | | | | | | Department | | | + + + + + + | (no date) | PROMETHAZINE | [facility] | (no reaction) | (no severity) | [...] + | (no date) | METOCLOPRAMIDE | [facility] | (no reaction) | (no severity) | | | | [facility] | | | | | | Clinical Lab | | | + + + + + + | (no date) | METOCLOPRAMIDE | [facility] | (no reaction) | (no severity) | | | | [facility] | | | | | | Computed | | | | | | Tomography | | | + + + + + + | (no date) | METOCLOPRAMIDE | [facility] | (no reaction) | (no severity) [...] severity) | | | | [facility] / [place] | | | | | | Medical | | | + + + + + + | (no date) | CODEINE | [facility] | (no reaction) | (no severity) | | | | [facility] | | | | | | Clinical Lab | | | + + + + + + | (no date) | CODEINE | [facility] | (no reaction) | (no severity) | | | | [facility] | | | | | | Computed | | | | | | Tomography | | | + + + + + + | (no date) | CODEINE | [facility] | (no reaction) | (no severity) [...] severity) | | | | [facility] / [place] | | | | | | Medical | | | + + + + + + | (no date) | KETOROLAC | [facility] | (no reaction) | (no severity) | | | | [facility] | | | | | | Clinical Lab | | | + + + + + + | (no date) | KETOROLAC | [facility] | (no reaction) | (no severity) | | | | [facility] | | | | | | Computed | | | | | | Tomography | | | + + + + + + | (no date) | KETOROLAC | [facility] | (no reaction) | (no severity) [...] 120 mg | [facility] [place] | | | 12 hr extended release | Medical | | | oral tablet | | + + + + | 2021-09-02 00:00 | pseudoephedrine hcl 120 mg | [facility] | | | 12 hr extended release | Computed Tomography | | | oral tablet | | + + + + | 2021-09-04 00:00 | pseudoephedrine hcl 30 mg | [facility] [place] | | | oral tablet | Medical [...] 00:00 | biotin 5 mg disintegrating | [facility] | | | oral tablet | Specialties [facility] | + + + + | 2020-08-12 00:00 | biotin 5 mg disintegrating | [facility] | | | oral tablet | Specialties [facility] | + + + + | 2022-09-29 00:00 | PAROXETINE HCL | [facility] | + + + + | 2023-03-23 00:00 | PAROXETINE HCL | [facility] | + + + + | 2021-09-04 00:00 | azelastine hydrochloride | [facility] [place] | | | [...] 00:00 | magnesium oxide 400 mg | [facility] | | | oral tablet | Specialties [facility] | + + + + | 2020-08-12 00:00 | magnesium oxide 400 mg | [facility] | | | oral tablet | Specialties [facility] | + + + + | 2021-08-25 00:00 | ascorbic acid 1000 mg oral | [facility] [place] | | | tablet | Medical | [...] mg oral | [facility] [place] | | | tablet | Medical | + + + + | 2021-12-27 00:00 | ascorbic acid 1000 mg oral | [facility] | | | tablet | Emergency Department | + + + + | 2020-07-26 00:00 | vitamin d3 1000 unt oral | [facility] | | | tablet | Specialties [facility] | + + + + | 2020-08-12 00:00 | vitamin d3 1000 unt oral | [facility] | | | tablet | Specialties [...] unt oral | [facility] [place] | | | tablet | Medical | + + + + | 2021-12-27 00:00 | vitamin d3 1000 unt oral | [facility] | | | tablet | Emergency Department | + + + + | 2021-08-11 00:00 | cefdinir 300 mg oral | [facility] [place] | | | capsule | Medical | + + + + | 2020-07-26 00:00 | acquired hemolytic anemias | [facility] | | | | Specialties [facility] | + + + + | 2020-08-12 00:00 | acquired hemolytic anemias | [facility] | | | | Specialties [facility] | + + + + | 2020-07-26 00:00 | acquired hemolytic anemias | [facility] | | | | Specialties [facility] | + + + + | 2020-08-12 00:00 | acquired hemolytic anemias | [facility] | | | | Specialties [facility] | + + + + | 2021-09-04 00:00 | azithromycin 250 mg oral | [facility] [place] | | | tablet | Medical | + + + + | 2021-09-04 00:00 | azithromycin 250 mg oral | [facility] | | | tablet | Clinical Lab | + + + + | 2021-09-04 00:00 | azithromycin 250 mg oral | [facility] | | | tablet | Emergency Department | + + + + | 2020-07-26 00:00 | ibuprofen 200 mg oral | [facility] | | | tablet | Specialties [facility] | + + + + | 2020-08-12 00:00 | ibuprofen 200 mg oral | [facility] | | | tablet | Specialties [facility] | + + + + | 2021-08-23 00:00 | nystatin 100,000 unt/ml | [facility] [place] | | | oral suspension | Medical [...] | 2022-09-29 00:00 | SERTRALINE HCL | [facility] | + + + + | 2023-03-23 00:00 | SERTRALINE HCL | [facility] | + + + + | [...] + | 2022-09-29 00:00 | ACETAMINOPHEN | [facility] | + + + + | 2023-03-23 00:00 | ACETAMINOPHEN | [facility] | + + + + | 2020-07-26 00:00 | acetaminophen 325 mg oral | [facility] | | | tablet | Specialties [facility] | + + + + | 2020-08-12 00:00 | acetaminophen 325 mg oral | [facility] | | | tablet | Specialties [...] mg / | [facility] [place] | | | clavulanate 125 mg oral | Medical | | | tablet | | + + + + | 2021-07-14 00:00 | amoxicillin 875 mg / | [facility] | | | clavulanate 125 mg oral | Emergency Department | | | tablet | | + + + + | 2021-09-04 00:00 | {21 (Methylprednisolone 4 | [facility] [place] | | | MG Oral Tablet) } Pack | Medical | + + + + | 2021-09-04 00:00 | {21 (Methylprednisolone 4 | [facility] | | | MG Oral Tablet) } Pack | Clinical Lab | + + + + | 2021-09-04 00:00 | {21 (Methylprednisolone 4 | [facility] | | | MG Oral Tablet) } Pack | Emergency Department | + + + + Problems + + + + | date | description | facility | + + + + | 2017-12-05 00:00 | Encounter for medical | [facility] | | | screening examination | | + + + + | 2017-12-05 00:00 | Encounter for medical | [facility] | | | screening examination | | + + + + | 2020-01-15 00:00 | Patient left without being | [facility] | | | seen | | + + + + | 2020-01-15 00:00 | Patient left without being | [facility] | | | seen | | [...] neck ache | [facility] [place] | | | | Medical | + + + + | 2020-02-22 00:00 | neck ache | [facility] | | | | Emergency Department | + + + + | 2020-02-22 00:00 | Neck pain | [facility] [place] | | | | Medical | + [...] 00:00 | numbness and tingling of | [facility] | | | skin | Specialties [facility] | + + + + | 2020-07-15 00:00 | Numbness and tingling | [facility] | | | | Specialties [facility] | + + + + | 2021-08-03 00:00 | Viral infection | [facility] | + + + + | 2021-08-03 00:00 | Viral infection | [facility] | + + + + | 2022-09-29 00:00 | Sinusitis | [facility] | + + + + | 2022-09-29 00:00 | Sinusitis | [facility] | + + + + | [...] HGS (IN-HOUSE | [facility] [place] | | | TEST)- EXTERNAL | Medical | + + + + | 2021-08-07 00:00 | COVID-19 HGS (IN-HOUSE | [facility] [place] | | | TEST)- EXTERNAL | Medical | + + + + | 2021-08-12 00:00 | COVID-19 HGS (IN-HOUSE | [facility] [place] | | | TEST)- EXTERNAL | Medical | + + + + | 2021-07-20 00:00 | COV2/FLUAB/RSV | [facility] | | | (XPERT)-EXTERNAL | Emergency Department | + + + + | 2021-09-18 00:00 | COV2/FLUAB/RSV | [facility] [place] | | | (XPERT)-EXTERNAL | Medical | + + + + | 2021-09-25 00:00 | COV2/FLUAB/RSV | [facility] | | | (XPERT)-EXTERNAL | Emergency Department | + + + + | 2021-10-06 00:00 | COV2/FLUAB/RSV | [facility] | | | (XPERT)-EXTERNAL | [...] + | Specimen | (no date) | [facility] | (missing) | (missing) | (missing) | [...] | | | | (procedure) | | [facility] | | | | | | | Medical | | | | + + + + + + + + + | Result panel 4 | + + + + + + + + + | Specimen | (no date) | [facility] | (missing) | (missing) | (missing) | [...] | | | | (procedure) | | [facility] | | | | | | | Medical | | | | + + + + + + + + + | Result panel 6 | + + + + + + + + + | Specimen | (no date) | [facility] | (missing) | (missing) | (missing) | [...] | RSV - EXT | 2021-07-20 | [facility] | NEGATIVE | (missing) | (missing) | [...] + + + | | 2021-07-20 | [facility] | (missing) | (missing) | (missing) | [...] FLU A - EXT | 2021-07-20 | [facility] | NEGATIVE | (missing) | (missing) | [...] | | | Control - | | [facility] | | | | | External | [...] | | | Control - | | [facility] | | | | | External | [...] + + + | | 2021-09-02 | [facility] | (missing) | (missing) | (missing) | [...] + + | Head | 2021-09-02 | [facility] | (missing) | (missing) | (missing) | [...] + + + | | 2021-09-02 | [facility] | (missing) | (missing) | (missing) | [...] + | SARS COV2 | 2021-09-17 | [facility] | <13.0 | (missing) | (missing) | [...] + | SARS COV2 | 2021-09-17 | [facility] | Negative | (missing) | (missing) | [...] + + + | | 2021-09-17 | [facility] | (missing) | (missing) | (missing) | [...] | | | | | | | [facility] | | | | | | | [...] | | | | | | | [facility] | | | | | | | [...] FLU B - EXT | 2021-09-25 | [facility] | NEGATIVE | (missing) | (missing) | [...] | RSV - EXT | 2021-09-25 | [facility] | NEGATIVE | (missing) | (missing) | [...] + | SARS-COV2 - | 2021-09-25 | [facility] | NEGATIVE | (missing) | (missing) | [...] + + + | | 2021-09-25 | [facility] | (missing) | (missing) | (missing) | [...] FLU A - EXT | 2021-10-06 | [facility] | NEGATIVE | (missing) | (missing) | [...] FLU B - EXT | 2021-10-06 | [facility] | NEGATIVE | (missing) | (missing) | [...] | RSV - EXT | 2021-10-06 | [facility] | NEGATIVE | (missing) | (missing) | [...] + | SARS-COV2 - | 2021-10-06 | [facility] | NEGATIVE | (missing) | (missing) | [...] + + + | | 2021-10-06 | [facility] | (missing) | (missing) | (missing) | [...] 2018-11-22 00:00 | Never smoked tobacco | [facility] [place] | | | [...] 2018-11-22 00:00 | Never smoked tobacco | [facility] [place] | | | | Medical | + + + + | 2018-11-22 00:00 | Never smoked tobacco | [facility] | | | | Emergency Department | + + + + | 2020-03-14 00:00 | Never smoker | [facility] | | | | Specialties [facility] [...]
[~2023-04-06 09:14] MED LIST changes: +TYLENOL325 MG PO
--- OUTSIDE RECORDS SUMMARY | 2023-04-06 09:16 | XMS ---
PreManage Notification: HI GARCIA Security Dip Brazier Events No recent Security Events currently on file CRITERIA MET - 6 ED Visits in 6 Months - [facility] - 2 Visits in 30 Days - [facility] - 3 Facilities in 90 Days CARE PROVIDERS Karri Sharpe Community Health Worker 04/21/2021-Current PHONE: [phone] Paolo Falk [facility] 03/20/2020-Current PHONE: Unknown -Ghada- Dentist: Central Office Maintainer [facility] PHONE: [phone] Purnima has no Care Guidelines for this patient. E.D. VISIT COUNT (12 MO.) 16 [facility] 3 M[facility] [place] [facility] Emergency [facility] TOTAL 20 NOTE: Visits indicate total known visits. ED/UCC VISIT TRACKING (12 MO.) 04/06/2023 09:15 [facility] [place] TYPE: Emergency COMPLAINT: - FLU SYMPTOMS, R LEG NUMB/TINGLING 03/29/2023 16:06 [facility] OR TYPE: Emergency DIAGNOSES: - Acute upper respiratory infection, unspecified - Generalized enlarged lymph nodes - ALLERGIC REACTION 03/23/2023 21:21 [facility] [place] TYPE: Emergency COMPLAINT: - SOB/FEVER DIAGNOSES: - Allergy status to narcotic agent - Allergy status to other drugs, medicaments and biological substances - Contact with and (suspected) exposure to COVID-19 - Multiple sclerosis - Nasal congestion - Tachycardia, unspecified - Viral infection, unspecified 03/13/2023 13:24 [facility] [place] TYPE: Emergency DIAGNOSES: - Viral infection, unspecified - BODY ACHES [facility]23 [facility] DIAGNOSES: - Viral infection, unspecified - Cough - Fever (9 Weeks To 74 Years) - Fever; Cough; Body Ache - Generalized Body Aches 03/07/2023 21:35 [facility] [place] TYPE: Emergency DIAGNOSES: - Acute pharyngitis, unspecified - Wants to get tested for covid 12/03/2022 11:32 [facility] [place] TYPE: Emergency DIAGNOSES: - Cervicalgia - LUMP NECK AREA 10/08/2022 23:43 [facility] [place] TYPE: Emergency DIAGNOSES: - Dental caries, unspecified - Nasal congestion - Other specified disorders of nose and nasal sinuses - DIZZY 10/07/2022 10:56 [facility] [place] TYPE: Emergency DIAGNOSES: - Dental caries, unspecified - dizzy, nausea, 10/03/2022 15:19 [facility] [place] TYPE: Emergency DIAGNOSES: - Acute sinusitis, unspecified - Dental caries, unspecified - Other specified bacterial agents as the cause of diseases classified elsewhere - DENTAL PAIN, EAR PAIN, DIZZINESS 09/29/2022 07:43 [facility] [place] TYPE: Emergency COMPLAINT: - NO TASTE/SMELL, SINUS ISSUE DIAGNOSES: - Allergy status to narcotic agent - Allergy status to other drugs, medicaments and biological substances - Chronic sinusitis, unspecified - Contact with and (suspected) exposure to COVID-19 08/08/2022 21:17 [facility] [place] TYPE: Emergency DIAGNOSES: - Encounter for screening, unspecified - COVID TEST 08/07/2022 13:11 [facility] [place] TYPE: Emergency DIAGNOSES: - Acute recurrent frontal sinusitis - DIZZY SHAKY NAUSEA FEVER 08/04/2022 11:39 [facility] OR TYPE: Emergency DIAGNOSES: - Other specified disorders of nose and nasal sinuses - ALLERGIC REACTION TO MEDICATION 07/31/2022 16:25 [facility] [place] TYPE: Emergency DIAGNOSES: - Generalized anxiety disorder - NOT FEELING WELL 07/26/2022 18:23 [facility] [place] TYPE: Emergency DIAGNOSES: - Anxiety disorder, unspecified - COVID-19 - ADVERSE REACTION TO MEDICATIONS 07/11/2022 01:05 [facility] [place] TYPE: Emergency DIAGNOSES: - COVID-19 - SHORTNESS OF BREATH,HEADACHE,SORE THROAT,COVID 19 SCREENING 06/15/2022 20:58 [facility] [place] TYPE: Emergency DIAGNOSES: - Viral infection, unspecified - COVID SCREENING 05/14/2022 22:10 [facility] [place] TYPE: Emergency DIAGNOSES: - Acute upper respiratory infection, unspecified - covid screening;headache;fever;chills 05/03/2022 14:10 [facility] [place] TYPE: Emergency DIAGNOSES: - Acute sinusitis, unspecified - Acute suppurative otitis media without spontaneous rupture of ear drum, left ear - FEVER VOMITING INPATIENT VISIT TRACKING (12 MO.) No inpatient visits to display in this time frame [id number]
[2023-04-06 10:39] LABS: INFLUENZA B NAA NEGATIVE (NEGATIVE); RESPIRATORY SYNCYTIAL VIR NAA NEGATIVE (NEGATIVE)
[2023-04-06] MEDS ORDERED: PAXLOVID 300-11 EACH PO (10:52)
[2023-04-06 11:15] VITALS: BP 112/75
== END 2023-04-06 10:55 | disposition home or self-care (01) ==
LOC: ED 09:14
PROVIDERS: Emergency Medicine
DX: Z20.822 Contact with and (suspected) exposure to COVID-19 (principal); G35 Multiple sclerosis; Z88.5 Allergy status to narcotic agent; Z88.8 Allergy status to other drugs, medicaments and biological substances
CPT/HCPCS: 87502; 99284; C9803; U0002

== ENCOUNTER 2025-04-18 11:08 | Emergency (ER) | payer OTHER ==
[~2025-04-18] VITALS: Ht 162.6 cm; Wt 63.0 kg
[~2025-04-18 11:08] MED LIST changes: +PAXLOVID 300-11 EACH PO
--- OUTSIDE RECORDS SUMMARY | 2025-04-18 11:15 | XMS ---
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 Yeny VISIT COUNT (12 MO.) 6 [facility] TOTAL 8 NOTE: Visits indicate total known visits. ED/UCC VISIT TRACKING (12 MO.) 04/18/2025 11:08 [facility] [place] TYPE: Emergency COMPLAINT: - COLD SYMPTOMS 04/15/2025 20:14 [facility] [place] TYPE: Emergency DIAGNOSES: - Acute maxillary sinusitis, unspecified - COVID + 04/14/2025 08:27 [facility] [place] TYPE: Emergency DIAGNOSES: - Diarrhea, unspecified - Other fatigue - abd pain [email or web address] [place] [facility] DIAGNOSES: - Postviral fatigue syndrome - COVID + 04/11/2025 10:07 [facility] [place] TYPE: Emergency COMPLAINT: - Abnormal lab values - DIARRHEA UNSPECIFIED - DIZZINESS AND GIDDINESS DIAGNOSES: 0. Diarrhea, unspecified 1. Anemia, unspecified 4. Cough, unspecified 5. Diarrhea, unspecified 6. Encounter for screening for COVID-19 04/10/2025 10:00 [facility] [place] TYPE: Emergency DIAGNOSES: - Diarrhea, unspecified - Nausea - NOT FEELING WELL 04/01/2025 09:09 [facility] [place] TYPE: Emergency DIAGNOSES: - Other fatigue - Personal history of COVID-19 - fatigue 05/29/2024 22:38 [facility] [place] TYPE: Emergency DIAGNOSES: - Unspecified ovarian cyst, left side - FLANK PAIN INPATIENT VISIT TRACKING (12 MO.) No inpatient visits to display in this time frame [email or web address]
[2025-04-18 11:57] LABS: CORONAVIRUS COVID-19 AG NEGATIVE (NEGATIVE)
[2025-04-18 12:52] LABS: INFLUENZA B NAA NEGATIVE (NEGATIVE); RESPIRATORY SYNCYTIAL VIR NAA NEGATIVE (NEGATIVE)
[2025-04-18 13:19] VITALS: BP 114/68
== END 2025-04-18 13:21 | disposition home or self-care (01) ==
LOC: ED 11:08
PROVIDERS: Emergency Medicine
DX: U07.1 COVID-19 (principal); J02.8 Acute pharyngitis due to other specified organisms; G35.D Multiple sclerosis, unspecified; Z88.5 Allergy status to narcotic agent; Z88.8 Allergy status to other drugs, medicaments and biological substances
CPT/HCPCS: 36415; 87502; 99283; U0002